=== PATIENT | female | born 1960 | race Caucasian/White ===

== ENCOUNTER 2023-11-14 11:02 | Emergency (ER) | payer OTHER, SELFPAY ==
[2023-11-14 11:13] VITALS: BP 120/69
[2023-11-14] MEDS: ATIVAN 2 MG PO (13:09)
--- NOTE | 2023-11-14 14:13 | ED.GENMED ---
History of Present Illness
General
Chief Complaint: Skin Problem
Source: patient and records
Exam Limitations: none
Time Seen by Provider: 11/14/23 11:52
Nursing documentation reviewed up to this point in time: agreed with
Travel History
Have you had any contact with someone who has COVID-19?: No
Do you have any symptoms of coronavirus? Fever > 100 degrees, chills, cough, shortness of breath, sore throat, loss of taste or smell, muscle aches, or headache?: No
History of Present Illness
History of Present Illness:
Patient is 63-year-old [id number] female presents to the emergency department with redness and swelling about her right wrist that started yesterday. Patient denies fever or chills. Patient had an arterial stick there for cardiac
catheterization on November 01. Patient had bypass surgery shortly thereafter and is recovering from that. Patient denies fever or chills. Patient denies any numbness, paresthesias or weakness of the right hand and fingers.
Past History
Past History
ED Past Medical History: CAD, HTN, Hypercholesterolemia and AL
ED Past Surgical History: Appendectomy and Orthopedic
Social History
Tobacco: Former smoker
Review of Systems
Review of Systems
All Other Systems: Not applicable
Phy Exam
Physical Exam
Physical Exam:
Physical Exam
General: No apparent distress, alert and appropriate, well nourished, well hydrated
HENT: Normocephalic, supple with no lymphadenopathy
Eyes: Clear sclera, conjuctiva without injection
Heart: Regular rhythm and rate. No S3, S4. No murmur.
Lungs: No respiratory distress, no stridor, lung sounds clear and equal bilaterally
Neuro: Alert and oriented x 3, CN II - XII intact, no motor focality, no cerebellar dysfunction
Skin: Approximately 4 mm diameter pustule over the right radial artery.
Psychiatric: well kept. interactive and cooperative but extremely anxious
Extremities: No edema, cyanosis.
Course
Orders/Labs/Results
Orders:
Orders
11/14/23 12:18
US Vascular Exam Limited Urgent
Reason For Exam: right wrist arterial puncture now elevated
11/14/23 13:05
Lorazepam [Ativan] 2 mg PO NOW STA
11/14/23 13:07
Lorazepam [Ativan] 2 mg .ROUTE .STK-MED ONE
11/14/23 13:09
Lorazepam [Ativan] 2 mg PO NOW STA
11/14/23 16:21
Oxycodone [Roxicodone] 5 mg .ROUTE .STK-MED ONE
11/14/23 16:24
Oxycodone [Roxicodone] 5 mg PO NOW STA
11/14/23 16:44
Wound Culture [Wound/Abscess/Other Culture] Urgent
RAFAL Source: Abscess
Specimen Description:
Date Specimen was Collected: 11/14/23
Time Specimen was Collected: 16:44
Comment: wrist
Vital Signs
Initial and Last Documented VS:
Initial Vital Signs
Temp Pulse Resp BP Pulse Ox
98.2 F 73 18 120/69 99
11/14/23 11:13 11/14/23 11:13 11/14/23 11:13 11/14/23 11:13 11/14/23 11:13
Last Documented Vital Signs
Temp Pulse Resp BP Pulse Ox
98.2 F 73 18 120/69 99
11/14/23 11:13 11/14/23 11:13 11/14/23 11:13 11/14/23 11:13 11/14/23 11:13
*Pulse Oximetry
Patient hypoxic: no
*EKG
Interpreted by ED Provider?: NA
*Interior Block Wirer Interpretation
Rate: Interior Block Wirer- N/A
*Critical Care Note
Total Time (30-74mins, 75-104mins- exclusive of procedures): Not Applicable
Update Note
Update Note:
Given the location of the pustule concerned about possibility of a pseudoaneurysm. Will get an ultrasound which was approved by vascular surgery.
No aneurysm. With the patient's hand palm up the area of the right radial artery was injected with 1% lidocaine with epi and bicarb in the pustule was unroofed revealing a small amount of purulent material and cultures taken. The area was
superficially debrided to the bottom of the wound. No foreign body. Band-Aid applied. Patient will be discharged
ED Attending Note
-
Portions of this chart may have been created with voice recognition software.� Occasional wrong word or��sound alike� substitutions may have occurred due to the inherent limitations of voice recognition software.
Discharge Plan
Departure
Patient Disposition: Home (Routine Discharge)
Date of Disposition: 11/14/23
Time of Disposition: 16:47
Patient with high blood pressure during this ER visit?: No
Condition: Good
Covid-19: Not Applicable
Discharge Problem:
Pustule
Instructions: Wound Care (DC)
Prescriptions:
New
mupirocin 2 % ointment
1 applic topical TID Qty: 50 0RF
No Action
trazodone 50 mg Tablet
25 mg PO HSPRN PRN (Reason: sleep)
methylphenidate HCl 54 mg tablet extended release 24hr
54 mg PO DAILYPRN PRN (Reason: focus)
methocarbamol 500 mg Tablet
500 mg PO TIDPRN PRN (Reason: NECK SPASMS)
therapeutic multivitamin Tablet
1 tab PO DAILY
gabapentin 300 mg Capsule
300 mg PO BID
cholecalciferol (vitamin D3) [Vitamin D3] 25 mcg (1,000 unit) Capsule
25 mcg PO DAILY
Entresto 24-26 mg Tablet
1 tab PO BID Qty: 60 1RF
pantoprazole 40 mg Tablet,Delayed Release (Dr/Ec)
40 mg PO DAILY Qty: 30 1RF
aspirin [Children's Aspirin] 81 mg Tablet,Chewable
81 mg PO DAILY Qty: 0 0RF
dapagliflozin propanediol [Farxiga] 10 mg Tablet
10 mg PO DAILY Qty: 30 1RF
clopidogrel 75 mg Tablet
75 mg PO DAILY Qty: 30 1RF
atorvastatin 40 mg Tablet
40 mg PO QPM Qty: 30 1RF
acetaminophen 325 mg Tablet
650 mg PO Q4HPRN PRN (Reason: mild pain,headache,temp >101F ) Qty: 0 0RF
metoprolol succinate 100 mg Tablet Extended Release 24 Hr
100 mg PO DAILY Qty: 30 1RF
oxycodone 5 mg Tablet
5 mg PO Q4HPRN PRN (Reason: severe pain) Qty: 20 0RF
Referrals:
Ivette Mandujano MD [Family Provider] - As needed
Activity Restrictions/Additional Instructions:
Continue present medications as prescribed. Any increasing redness, fevers please return to the emergency department.
Interventions
Interventions:
*General Assessment Last Done: 11/14/23 11:13
*ED COVID-19 Vaccine History Last Done: 11/14/23 11:13
[2023-11-14] MEDS: ROXICODONE 5 MG PO (16:25)
== END 2023-11-14 17:00 | disposition home or self-care (01) ==
LOC: EMR 11:02
PROVIDERS: EMERGENCY PHYSICIAN Emergency Medicine; FAMILY PHYSICIAN Family Medicine
DX: L08.9 Local infection of the skin and subcutaneous tissue, unspecified (principal); I77.89 Other specified disorders of arteries and arterioles; I10 Essential (primary) hypertension
CPT/HCPCS: 99284; 10060; 87070; 87205; 93926

== ENCOUNTER 2023-11-15 16:46 | Emergency (ER) | payer OTHER, SELFPAY ==
[2023-11-15 16:52] VITALS: BP 126/76
[2023-11-15 16:55] VITALS: BMI 31.5
[2023-11-15 17:00] VITALS: BP 104/50
--- NOTE | 2023-11-15 17:19 | ED.GENMED ---
History of Present Illness
General
Chief Complaint: Cardiac Symptoms
Source: patient and records
Exam Limitations: none
Time Seen by Provider: 11/15/23 17:07
Nursing documentation reviewed up to this point in time: agreed with
Travel History
Have you had any contact with someone who has COVID-19?: No
Do you have any symptoms of coronavirus? Fever > 100 degrees, chills, cough, shortness of breath, sore throat, loss of taste or smell, muscle aches, or headache?: No
History of Present Illness
History of Present Illness:
Patient is a 63-year-old female who had cardiac bypass surgery on November 05 and presents today for palpitations where her heart rate was going between 120 and 150 for approximately 25 to 30 minutes. Patient denied feeling lightheaded. Patient did
develop neck pain similar to when she had her heart attack previously. Patient not feel short of breath or have chest pain. Patient denies any diaphoresis. Patient denies any GI or symptoms. Patient denies any leg pain or swelling. Patient
was seen here yesterday for pustule over her right radial artery and had a negative arterial ultrasound for aneurysm. Patient denies any recent fever or chills.
Past History
Past History
ED Past Medical History: CAD, HTN, Hypercholesterolemia, [place] and Other (ADHD, osteoporosis, ischemic cardiomyopathy)
ED Past Surgical History: Appendectomy and Orthopedic
Social History
Tobacco: Former smoker
Review of Systems
Review of Systems
All Other Systems: ROS reviewed and negative except as documented in HPI and ROS
Constitutional: Reports no symptoms
EENT: Reports no symptoms
Respiratory: Reports no symptoms
Cardiac: Reports palpitations; Denies chest pain, diaphoresis or syncope
ABD/GI: Reports no symptoms
: Reports no symptoms
Musculoskeletal: Reports neck pain
Skin: Reports no symptoms
Neurological: Reports no symptoms
Hematologic/Lymphatic: Reports no symptoms
Phy Exam
Physical Exam
Physical Exam:
Physical Exam
General: No apparent distress, alert and appropriate, well nourished, well hydrated
HENT: Normocephalic, supple with no lymphadenopathy, no thyromegaly
Eyes: Clear sclera, conjuctiva without injection
Heart: Regular rhythm and rate. No S3, S4. No murmur. No NVD
Lungs: No respiratory distress, no stridor, lung sounds clear and equal bilaterally, chest wall nontender with well-healing sternal surgical wound
Abdomen: Soft, nontender, ness, BS good
Neuro: Alert and oriented x 3, CN II - XII intact, no motor focality, no cerebellar dysfunction
Skin: no rash
Psychiatric: well kept. interactive and cooperative
Extremities: No edema, cyanosis, tenderness.
Scores
Heart Failure Risk
Heart Failure Risk Score: Not Applicable
Heart Score for Chest Pain Patients
STEMI patient?: Not applicable
Withdrawal Assessment of Alcohol
Withdrawal Assessment Completed?: Not applicable
Course
Orders/Labs/Results
Orders:
Orders
11/15/23 17:19
Electrocardiogram (*1) Urgent
Reason for Study: Palpitations
EKG- Treatment ONCE
Complete Blood Count/With Diff Urgent
Comprehensive Metabolic Panel Urgent
Sed Rate [Erythrocyte Sed Rate] Urgent
TSH Reflex To Free T4 Urgent
Troponin I Urgent
11/15/23 17:24
PTT Urgent
Prothrombin Time Urgent
Abnormal Lab Results
11/15/23 11/15/23
17:19 17:24
RBC 2.92 L 10^6/uL
(4.20-5.40)
Hgb 9.9 L g/dL
(12.0-16.0)
Hct 28.2 L %
(37.0-47.0)
MCH 33.9 H pg
(27.0-31.0)
Plt Count 656 H D 10^3/uL
(130-400)
Abs Immat Gran (auto) 0.1 H 10^3/uL
(0-0.05)
Absolute Monos (auto) 1.0 H 10^3/uL
(0.1-0.6)
Monocytes % 9.9 H %
(1.7-9.3)
ESR 63 H mm/hour
(0-20)
PT 14.7 H Sec
(11.4-14.6)
APTT 37.2 H Sec
(23.4-35.0)
Sodium 134 L mmol/L
(135-145)
Glucose 108 H mg/dl
(70-99)
Total Protein 6.1 L g/dl
(6.3-8.2)
11/15/23 17:24
11/15/23 17:24
Vital Signs
Initial and Last Documented VS:
Initial Vital Signs
Temp Pulse Resp BP Pulse Ox
98.0 F 82 22 126/76 95
11/15/23 16:52 11/15/23 16:52 11/15/23 16:52 11/15/23 16:52 11/15/23 16:52
Last Documented Vital Signs
Temp Pulse Resp BP Pulse Ox
98.0 F 75 19 90/60 93
11/15/23 16:52 11/15/23 18:00 11/15/23 18:00 11/15/23 18:00 11/15/23 18:00
*Radiology
Radiology exam reviewed: other (na)
*Pulse Oximetry
Patient hypoxic: no
*Electrical Troubleshooter Interpretation
Rate: normal
Interpretation: normal
Heart Rate: 80
Rhythm: sinus
*Critical Care Note
Total Time (30-74mins, 75-104mins- exclusive of procedures): Not Applicable
Update Note
Update Note:
Spoke with cardiology and will follow-up as an outpatient. Probably atrial fibrillation but at this point no medication adjustment needs to be made. Patient does not require anticoagulation. Discussed the findings with the patient and her
daughter. Patient feels fine at this time. I discussed EKG and lab results with cardiology.
ED Attending Note
-
Portions of this chart may have been created with voice recognition software.� Occasional wrong word or��sound alike� substitutions may have occurred due to the inherent limitations of voice recognition software.
Discharge Plan
Departure
Patient Disposition: Home (Routine Discharge)
Date of Disposition: 11/15/23
Time of Disposition: 19:02
Patient with high blood pressure during this ER visit?: No
Condition: Good
Covid-19: Not Applicable
Discharge Problem:
Palpitations
Instructions: Palpitations (DC)
Prescriptions:
No Action
trazodone 50 mg Tablet
25 mg PO HSPRN PRN (Reason: sleep)
methylphenidate HCl 54 mg tablet extended release 24hr
54 mg PO DAILYPRN PRN (Reason: focus)
methocarbamol 500 mg Tablet
500 mg PO TIDPRN PRN (Reason: NECK SPASMS)
therapeutic multivitamin Tablet
1 tab PO DAILY
gabapentin 300 mg Capsule
300 mg PO BID
cholecalciferol (vitamin D3) [Vitamin D3] 25 mcg (1,000 unit) Capsule
25 mcg PO DAILY
Entresto 24-26 mg Tablet
1 tab PO BID Qty: 60 1RF
pantoprazole 40 mg Tablet,Delayed Release (Dr/Ec)
40 mg PO DAILY Qty: 30 1RF
aspirin [Children's Aspirin] 81 mg Tablet,Chewable
81 mg PO DAILY Qty: 0 0RF
dapagliflozin propanediol [Farxiga] 10 mg Tablet
10 mg PO DAILY Qty: 30 1RF
clopidogrel 75 mg Tablet
75 mg PO DAILY Qty: 30 1RF
atorvastatin 40 mg Tablet
40 mg PO QPM Qty: 30 1RF
acetaminophen 325 mg Tablet
650 mg PO Q4HPRN PRN (Reason: mild pain,headache,temp >101F ) Qty: 0 0RF
metoprolol succinate 100 mg Tablet Extended Release 24 Hr
100 mg PO DAILY Qty: 30 1RF
oxycodone 5 mg Tablet
5 mg PO Q4HPRN PRN (Reason: severe pain) Qty: 20 0RF
mupirocin 2 % ointment
1 applic topical TID Qty: 50 0RF
Referrals:
Ivetet Mandujano MD [Family Provider] -
Activity Restrictions/Additional Instructions:
Call your census clerk tomorrow to arrange follow-up otherwise continue present medications and therapy. If the palpitations are sustained for over half hour to an hour with no resolution or if having symptoms then return immediately.
Interventions
Interventions:
*Risk Screen - Suicide Last Done: 11/15/23 16:55
*General Assessment Last Done: 11/15/23 16:55
*Neglect/Abuse Screening Last Done: 11/15/23 16:55
ED- Fall Risk Assessment Last Done: 11/15/23 17:01
*ED COVID-19 Vaccine History Last Done: 11/15/23 16:52
ED- Pulmonary Assessment Last Done: 11/15/23 16:59
ED- Cardiac Assessment Last Done: 11/15/23 16:58
[2023-11-15 17:39] LABS: % Basophils 0.9 % (0-2); % Eosinophils 4.3 % (0-6); % Immature Granulocytes 0.5 % (0-0.5); % Lymphocytes 29.8 % (20.5-51.1); % Monocytes 9.9 % (1.7-9.3); % Neutrophils 54.6 % (42.2-75.2); Absolute Basophils 0.1 10^3/uL (0-0.2); Absolute Eosinophils 0.4 10^3/uL (0-0.7); Absolute Immature Granulocytes 0.1 10^3/uL (0-0.05); Absolute Lymphocytes 3.1 10^3/uL (1.2-3.4); Absolute Neutrophils 5.7 10^3/uL (1.4-6.5); Hematocrit 28.2 % (37.0-47.0); Hemoglobin 9.9 g/dL (12.0-16.0); Mean Corp Hgb Conc. 35.1 g/dL (33.0-37.0); Mean Corpuscular Hgb 33.9 pg (27.0-31.0); Mean Corpuscular Volume 96.6 fL (81.0-99.0); Nucleated Red Blood Cells % 0 %; Red Blood Cell Count 2.92 10^6/uL (4.20-5.40); Red Cell Dist. Width 13.9 % (11.5-14.5); White Blood Cell Count 10.4 10^3/uL (4.8-10.8)
[2023-11-15 17:50] LABS: INR 1.13; PT 14.7 Sec (11.4-14.6)
[2023-11-15 17:51] LABS: APTT 37.2 Sec (23.4-35.0)
[2023-11-15 17:53] LABS: Erythrocyte Sed Rate 63 mm/hour (0-20)
[2023-11-15 18:00] VITALS: BP 90/60
[2023-11-15 18:01] LABS: ALT (SGPT) 15 U/L (0-35); AST (SGOT) 21 U/L (14-36); Albumin 3.6 g/dl (3.5-5.0); Alkaline Phosphatase 73 U/L (38-126); Blood Urea Nitrogen 17 mg/dl (7-17); Calcium 9.2 mg/dl (8.4-10.2); Carbon Dioxide 25 mmol/L (22-30); Chloride 105 mmol/L (98-107); Estimated Creatinine Clearance 71 ml/min; Glucose 108 mg/dl (70-99); Sodium 134 mmol/L (135-145); Total Bilirubin 0.3 mg/dl (0.2-1.3); Total Protein 6.1 g/dl (6.3-8.2); eGFR > 60.00
[2023-11-15 18:04] LABS: Platelet Count 656 10^3/uL (130-400)
[2023-11-15 18:05] LABS: Mean Platelet Volume 9.1 fL (7.4-10.4)
[2023-11-15 18:13] LABS: Troponin I 0.033 ng/ml
[2023-11-15 19:00] VITALS: BP 117/67
[2023-11-15 19:03] LABS: TSH Reflex To Free T4 1.75 uIU/ml (0.47-4.68)
== END 2023-11-15 19:28 | disposition home or self-care (01) ==
LOC: EMR 16:46
PROVIDERS: EMERGENCY PHYSICIAN Emergency Medicine; FAMILY PHYSICIAN Family Medicine
DX: R00.2 Palpitations (principal); I25.10 Atherosclerotic heart disease of native coronary artery without angina pectoris; I10 Essential (primary) hypertension; I25.2 Old myocardial infarction; F90.9 Attention-deficit hyperactivity disorder, unspecified type; E78.00 Pure hypercholesterolemia, unspecified; I25.5 Ischemic cardiomyopathy; M81.0 Age-related osteoporosis without current pathological fracture; Z87.891 Personal history of nicotine dependence; Z90.49 Acquired absence of other specified parts of digestive tract
CPT/HCPCS: 99283; 80053; 84443; 84484; 85025; 85610; 85652; 85730; 93005

== ENCOUNTER 2023-11-19 11:50 | Emergency (ER) | payer OTHER, SELFPAY ==
[2023-11-19 11:54] VITALS: BP 107/60
[2023-11-19 11:55] VITALS: BP 107/60
[2023-11-19 12:00] VITALS: BP 95/49
--- NOTE | 2023-11-19 12:07 | ED.GENMED ---
History of Present Illness
General
Chief Complaint: Cardiac Symptoms
Time Seen by Provider: 11/19/23 12:06
Travel History
Have you had any contact with someone who has COVID-19?: No
Do you have any symptoms of coronavirus? Fever > 100 degrees, chills, cough, shortness of breath, sore throat, loss of taste or smell, muscle aches, or headache?: No
History of Present Illness
History of Present Illness:
63-year-old female with history of coronary artery disease status post CABG x 4 (11/05/2023), hypertension, and hyperlipidemia emergency department for evaluation of sudden onset palpitations beginning earlier today. She called 911 and on arrival of
EMS was noted to be in a narrow complex tachycardia in the 160s. Rapid rhythm terminated without medical therapy while and route to the hospital. On arrival the patient feels well and denies any acute complaints. Typically denies any chest pain
or shortness of breath. Her post CABG course has been complicated by an abscess at an arterial line site in the right wrist as well as a bout of paroxysmal A-fib that she was seen in the emergency department for approximately 4 days ago. She is
not on any anticoagulants but does take Plavix
Past History
Past History
ED Past Medical History: CAD, HTN, Hypercholesterolemia, [place] and Other (ADHD, osteoporosis, ischemic cardiomyopathy)
ED Past Surgical History: Appendectomy and Orthopedic
Social History
Tobacco: Former smoker
Review of Systems
Review of Systems
Allergies reviewed?: Yes
All Other Systems: ROS reviewed and negative except as documented in HPI and ROS
Phy Exam
Physical Exam
Physical Exam:
GEN: Well appearing, NAD, WDWN
HEENT: Oral mucosa moist, no scleral icterus
Cardiac: Regular rate and rhythm, no murmurs
Chest: Well-approximated midline sternotomy incisional scar no evidence for dehiscence or erythema
Lung: No respiratory distress, no tachypnea
MSK: No gross deformity or injuries
Skin: Good color, no pallor or jaundice, no rashes
Neuro: AO x3, moves all extremities freely
Psych: Calm, cooperative
Course
Orders/Labs/Results
Orders:
Orders
11/19/23 11:54
Electrocardiogram (*1) Urgent
Reason for Study: Tachycardia
11/19/23 11:55
EKG- Treatment ONCE
11/19/23 12:03
CMP [Comprehensive Metabolic Panel] Urgent
Complete Blood Count/With Diff Urgent
Magnesium Urgent
Comment: MAG ADDED ON BY FLOOR 12:19PM 11-19-23
11/19/23 12:19
Add On- LAB Urgent
Tests Added?: magnesium
Chest [CR Chest - 2 Views ] Urgent
Comment:
Reason For Exam: heart rate
Abnormal Lab Results
11/19/23
12:03
RBC 3.45 L 10^6/uL
(4.20-5.40)
Hgb 11.1 L g/dL
(12.0-16.0)
Hct 34.4 L %
(37.0-47.0)
MCV 99.7 H fL
(81.0-99.0)
MCH 32.2 H pg
(27.0-31.0)
MCHC 32.3 L g/dL
(33.0-37.0)
Plt Count 706 H 10^3/uL
(130-400)
Absolute Neuts (auto) 7.0 H 10^3/uL
(1.4-6.5)
Absolute Monos (auto) 0.9 H 10^3/uL
(0.1-0.6)
Glucose 116 H mg/dl
(70-99)
11/19/23 12:03
11/19/23 12:03
Vital Signs
Initial and Last Documented VS:
Initial Vital Signs
BP
107/60
11/19/23 11:54
Last Documented Vital Signs
Temp Pulse Resp BP Pulse Ox
97.9 F 87 21 95/49 95
11/19/23 11:55 11/19/23 12:15 11/19/23 12:15 11/19/23 12:00 11/19/23 12:15
MDM/Problems Addressed
MDM/Problems Addressed:
Telemetry strips personally reviewed by me from prehospital tracings are suggestive of a rapid atrial flutter. Patient remained in normal sinus rhythm in the emergency department labs/chest x-ray are reassuring. I communicated this with her
cardiology team, the patient has a scheduled follow-up this afternoon and given that she is stable with no abnormalities in the ER we will discharge her to be able to follow-up with cardiology and discuss further management of her recurrent atrial
arrhythmias in the setting of recent CABG. Do not see any indication for anticoagulation at this juncture, particularly given the close cardio f/u
Comment
Comment:
EKG independently interpreted by me shows normal sinus rhythm with deep T wave inversions laterally that are comparable to prior EKG tracings. No new ST changes concerning for ischemia, QTc of 476
Chest x-ray independently interpreted by me shows trace left lower lobe pleural effusion and bibasilar atelectasis, no evidence for acute infiltrate
*Critical Care Note
Total Time (30-74mins, 75-104mins- exclusive of procedures): Not Applicable
ED Attending Note
-
Portions of this chart may have been created with voice recognition software.� Occasional wrong word or��sound alike� substitutions may have occurred due to the inherent limitations of voice recognition software.
Discharge Plan
Departure
Patient Disposition: Home (Routine Discharge)
Date of Disposition: 11/19/23
Time of Disposition: 13:23
Patient with high blood pressure during this ER visit?: No
Discharge Problem:
Paroxysmal atrial fibrillation
Instructions: Atrial Fibrillation (DC)
Prescriptions:
No Action
trazodone 50 mg Tablet
25 mg PO HSPRN PRN (Reason: sleep)
methylphenidate HCl 54 mg tablet extended release 24hr
54 mg PO DAILYPRN PRN (Reason: focus)
methocarbamol 500 mg Tablet
500 mg PO TIDPRN PRN (Reason: NECK SPASMS)
therapeutic multivitamin Tablet
1 tab PO DAILY
gabapentin 300 mg Capsule
300 mg PO BID
cholecalciferol (vitamin D3) [Vitamin D3] 25 mcg (1,000 unit) Capsule
25 mcg PO DAILY
Entresto 24-26 mg Tablet
1 tab PO BID Qty: 60 1RF
pantoprazole 40 mg Tablet,Delayed Release (Dr/Ec)
40 mg PO DAILY Qty: 30 1RF
aspirin [Children's Aspirin] 81 mg Tablet,Chewable
81 mg PO DAILY Qty: 0 0RF
dapagliflozin propanediol [Farxiga] 10 mg Tablet
10 mg PO DAILY Qty: 30 1RF
clopidogrel 75 mg Tablet
75 mg PO DAILY Qty: 30 1RF
atorvastatin 40 mg Tablet
40 mg PO QPM Qty: 30 1RF
acetaminophen 325 mg Tablet
650 mg PO Q4HPRN PRN (Reason: mild pain,headache,temp >101F ) Qty: 0 0RF
metoprolol succinate 100 mg Tablet Extended Release 24 Hr
100 mg PO DAILY Qty: 30 1RF
oxycodone 5 mg Tablet
5 mg PO Q4HPRN PRN (Reason: severe pain) Qty: 20 0RF
mupirocin 2 % ointment
1 applic topical TID Qty: 50 0RF
Activity Restrictions/Additional Instructions:
Go to your medical housekeeper for your routine appointment
Interventions
Interventions:
*Risk Screen - Suicide Last Done: 11/19/23 11:55
*General Assessment Last Done: 11/19/23 11:55
*Neglect/Abuse Screening Last Done: 11/19/23 11:55
ED- Fall Risk Assessment Last Done: 11/19/23 13:25
*ED COVID-19 Vaccine History Last Done: 11/19/23 11:55
*Nursing Disposition Last Done: 11/19/23 13:25
ED- Pulmonary Assessment Last Done: 11/19/23 11:55
ED- Cardiac Assessment Last Done: 11/19/23 11:55
Discharge Date and Time
Discharge Date/Time: 11/19/23 13:25
[2023-11-19 12:28] LABS: % Basophils 0.9 % (0-2); % Eosinophils 2.8 % (0-6); % Immature Granulocytes 0.3 % (0-0.5); % Lymphocytes 21.9 % (20.5-51.1); % Monocytes 8.5 % (1.7-9.3); % Neutrophils 65.6 % (42.2-75.2); Absolute Basophils 0.1 10^3/uL (0-0.2); Absolute Eosinophils 0.3 10^3/uL (0-0.7); Absolute Lymphocytes 2.3 10^3/uL (1.2-3.4); Absolute Monocytes 0.9 10^3/uL (0.1-0.6); Hematocrit 34.4 % (37.0-47.0); Hemoglobin 11.1 g/dL (12.0-16.0); Mean Corp Hgb Conc. 32.3 g/dL (33.0-37.0); Mean Corpuscular Hgb 32.2 pg (27.0-31.0); Mean Corpuscular Volume 99.7 fL (81.0-99.0); Nucleated Red Blood Cells % 0 %; Platelet Count 706 10^3/uL (130-400); Red Blood Cell Count 3.45 10^6/uL (4.20-5.40); Red Cell Dist. Width 13.8 % (11.5-14.5); White Blood Cell Count 10.7 10^3/uL (4.8-10.8)
[2023-11-19 12:45] LABS: ALT (SGPT) 14 U/L (0-35); AST (SGOT) 20 U/L (14-36); Alkaline Phosphatase 87 U/L (38-126); Blood Urea Nitrogen 9 mg/dl (7-17); Calcium 9.4 mg/dl (8.4-10.2); Carbon Dioxide 23 mmol/L (22-30); Chloride 106 mmol/L (98-107); Estimated Creatinine Clearance 80 ml/min; Glucose 116 mg/dl (70-99); Magnesium 2.3 mg/dl (1.6-2.3); Potassium 4.7 mmol/L (3.5-5.1); Sodium 137 mmol/L (135-145); Total Bilirubin 0.4 mg/dl (0.2-1.3); Total Protein 6.8 g/dl (6.3-8.2); eGFR > 60.00
== END 2023-11-19 13:25 | disposition home or self-care (01) ==
LOC: EMR 11:50
PROVIDERS: EMERGENCY PHYSICIAN Emergency Medicine; FAMILY PHYSICIAN Family Medicine
DX: I48.0 Paroxysmal atrial fibrillation (principal); I25.10 Atherosclerotic heart disease of native coronary artery without angina pectoris; I10 Essential (primary) hypertension; I25.2 Old myocardial infarction; F90.9 Attention-deficit hyperactivity disorder, unspecified type; I25.5 Ischemic cardiomyopathy; M81.0 Age-related osteoporosis without current pathological fracture; E78.00 Pure hypercholesterolemia, unspecified; Z87.891 Personal history of nicotine dependence; Z90.49 Acquired absence of other specified parts of digestive tract; Z95.1 Presence of aortocoronary bypass graft
CPT/HCPCS: 99283; 71046; 80053; 83735; 85025; 93005

== ENCOUNTER 2024-01-30 02:48 | Emergency (ER) | payer OTHER, SELFPAY ==
[2024-01-30 02:55] VITALS: BP 171/74
[2024-01-30 03:18] VITALS: BMI 28.1
[2024-01-30 03:47] LABS: % Basophils 0.7 % (0-2); % Eosinophils 3.9 % (0-6); % Immature Granulocytes 0.4 % (0-0.5); % Lymphocytes 28.7 % (20.5-51.1); % Monocytes 15.5 % (1.7-9.3); % Neutrophils 50.8 % (42.2-75.2); Absolute Basophils 0.1 10^3/uL (0-0.2); Absolute Eosinophils 0.3 10^3/uL (0-0.7); Absolute Lymphocytes 2.2 10^3/uL (1.2-3.4); Absolute Monocytes 1.2 10^3/uL (0.1-0.6); Absolute Neutrophils 3.9 10^3/uL (1.4-6.5); Hematocrit 32.6 % (37.0-47.0); Hemoglobin 10.8 g/dL (12.0-16.0); Mean Corp Hgb Conc. 33.1 g/dL (33.0-37.0); Mean Corpuscular Hgb 30.8 pg (27.0-31.0); Mean Corpuscular Volume 92.9 fL (81.0-99.0); Mean Platelet Volume 9.6 fL (7.4-10.4); Nucleated Red Blood Cells % 0 %; Platelet Count 342 10^3/uL (130-400); Red Blood Cell Count 3.51 10^6/uL (4.20-5.40); Red Cell Dist. Width 14.7 % (11.5-14.5); White Blood Cell Count 7.6 10^3/uL (4.8-10.8)
[2024-01-30 03:48] LABS: Urine Albumin Negative (Neg - Trace); Urine Bilirubin Negative (Negative); Urine Character Clear (Clear); Urine Color Yellow; Urine Glucose 3+ (Negative); Urine Ketone Negative (Negative); Urine Leukocyte Negative (Negative); Urine Nitrite Negative (Negative); Urine Occult Blood Negative (Negative); Urine Specific Gravity 1.015 (<1.030); Urine Urobilinogen Negative (Neg - 1+)
[2024-01-30 04:00] LABS: Blood Urea Nitrogen 16 mg/dl (7-17); Calcium 9.3 mg/dl (8.4-10.2); Carbon Dioxide 22 mmol/L (22-30); Chloride 109 mmol/L (98-107); Estimated Creatinine Clearance 88 ml/min; Glucose 90 mg/dl (70-99); Potassium 4.5 mmol/L (3.5-5.1); Sodium 136 mmol/L (135-145); eGFR > 60.00
--- NOTE | 2024-01-30 05:32 | ED.GENMED ---
History of Present Illness
General
Chief Complaint: Back Pain
Source: patient
Time Seen by Provider: 01/30/24 03:24
Travel History
Have you had any contact with someone who has COVID-19?: No
Do you have any symptoms of coronavirus? Fever > 100 degrees, chills, cough, shortness of breath, sore throat, loss of taste or smell, muscle aches, or headache?: No
History of Present Illness
History of Present Illness:
63-year-old female presents to the emergency room complaining of pain in her low back. Pain has been present for the past week. No fever or chills. Patient also concerned that she has gained 3 pounds over the past couple days. She has a cardiac
history including CABG. She denies any shortness of breath or dyspnea on exertion. Patient has had kidney stones in the past and thought she might be having a kidney stone.
Past History
Past History
ED Past Medical History: CAD, HTN, Hypercholesterolemia, [place] and Other (ADHD, osteoporosis, ischemic cardiomyopathy)
ED Past Surgical History: Appendectomy and Orthopedic
Social History
Tobacco: Former smoker
Phy Exam
Physical Exam
Physical Exam:
General: Awake, Alert, Oriented X3. No acute distress.
Vitals: unremarkable
Head: Atraumatic
Eyes: Pupils equal, EOMI
Throat: Airway intact, no exudates
Neck: Trachea midline
Lungs: Clear and equal b/l
Heart: Regular rate, no murmurs
Abd: Soft, Nontender, No pulsatile mass
Back: No CVA tenderness percussion
Neuro: Nonfocal
Skin: Warm, dry, no rash
Extremities: pulses equal b/l, no edema
Course
Orders/Labs/Results
Orders:
Orders
01/30/24 03:38
Basic Metabolic Panel Urgent
Complete Blood Count/With Diff Urgent
Urinalysis Reflex To Culture Urgent
Date Specimen was Collected: 01/30/24
Time Specimen was Collected: 03:37
01/30/24 04:11
CT Abd/pel Without Iv Or Oral Urgent
Comment:
Reason For Exam: left flank pain
01/30/24 05:33
Lidocaine [Lidocaine 4% Patch] 1 patch TOPICAL NOW STA
Prednisone [Deltasone] 50 mg PO NOW STA
Abnormal Lab Results
01/30/24
03:38
RBC 3.51 L 10^6/uL
(4.20-5.40)
Hgb 10.8 L g/dL
(12.0-16.0)
Hct 32.6 L %
(37.0-47.0)
RDW 14.7 H %
(11.5-14.5)
Absolute Monos (auto) 1.2 H 10^3/uL
(0.1-0.6)
Monocytes % 15.5 H %
(1.7-9.3)
Chloride 109 H mmol/L
(98-107)
Urine Glucose 3+ A
(Negative)
01/30/24 03:38
01/30/24 03:38
Vital Signs
Initial and Last Documented VS:
Initial Vital Signs
Temp Pulse Resp BP Pulse Ox
97.7 F 69 16 171/74 96
01/30/24 02:55 01/30/24 02:55 01/30/24 02:55 01/30/24 02:55 01/30/24 02:55
Last Documented Vital Signs
Temp Pulse Resp BP Pulse Ox
97.7 F 84 20 158/82 96
01/30/24 02:55 01/30/24 05:59 01/30/24 05:59 01/30/24 05:59 01/30/24 02:55
MDM/Problems Addressed
Differential Diagnosis Includes:
Will also strain, kidney stone, compression fracture
MDM/Problems Addressed:
Patient presents with back pain. No evidence of urinary tract infection. CT does not show evidence of a kidney stone. She does have a mild compression fracture which is of indeterminate age. No evidence of an unstable process ongoing. Patient
presentation seems most consistent with musculoskeletal back pain. Will treat the patient with a short course of steroids. Also provide a short prescription for oxycodone.
*Radiology
Radiology exam reviewed: preliminary read by ED provider
*Pulse Oximetry
Patient hypoxic: no
*Critical Care Note
Total Time (30-74mins, 75-104mins- exclusive of procedures): Not Applicable
ED Attending Note
-
Portions of this chart may have been created with voice recognition software.� Occasional wrong word or��sound alike� substitutions may have occurred due to the inherent limitations of voice recognition software.
Discharge Plan
Departure
Patient Disposition: Home (Routine Discharge)
Date of Disposition: 01/30/24
Time of Disposition: 05:32
Patient with high blood pressure during this ER visit?: Yes
Condition: Good
Discharge Problem:
Low back pain
Instructions: Low Back Pain (DC), BLOOD PRESSURE
Prescriptions:
New
prednisone 20 mg tablet
40 mg PO DAILY Qty: 8 0RF
oxycodone 5 mg tablet
5 mg PO Q6H PRN (Reason: Pain) Qty: 12 0RF
No Action
methocarbamol 500 mg Tablet
500 mg PO TIDPRN PRN (Reason: NECK SPASMS)
therapeutic multivitamin Tablet
1 tab PO DAILY
gabapentin 300 mg Capsule
300 mg PO DAILY PRN (Reason: Neurological Condition)
cholecalciferol (vitamin D3) [Vitamin D3] 25 mcg (1,000 unit) Capsule
1,000 unit PO DAILY
Entresto 24-26 mg Tablet
1 tab PO BID Qty: 60 1RF
pantoprazole 40 mg Tablet,Delayed Release (Dr/Ec)
40 mg PO DAILY Qty: 30 1RF
dapagliflozin propanediol [Farxiga] 10 mg Tablet
10 mg PO DAILY Qty: 30 1RF
clopidogrel 75 mg Tablet
75 mg PO DAILY Qty: 30 1RF
atorvastatin 40 mg Tablet
40 mg PO QPM Qty: 30 1RF
acetaminophen 325 mg Tablet
650 mg PO Q4HPRN PRN (Reason: mild pain,headache,temp >101F ) Qty: 0 0RF
metoprolol succinate 100 mg Tablet Extended Release 24 Hr
100 mg PO DAILY Qty: 30 1RF
spironolactone 25 mg Tablet
12.5 mg PO DAILY
Eliquis 5 mg Tablet
5 mg PO BID
lorazepam 1 mg Tablet
1 mg PO HS PRN (Reason: anxiety/sleep)
Referrals:
Jens Jc MD [Active] -
Ivette Mandujano MD [Family Provider] -
Activity Restrictions/Additional Instructions:
Please call to make an appointment with DR. Jc or one of his partners. You can use over the counter lidocaine patch for pain. I have also sent prescriptions for 4 days of prednisone and oxycodone for severe pain.
Interventions
Interventions:
*Risk Screen - Suicide Last Done: 01/30/24 02:55
*General Assessment Last Done: 01/30/24 02:55
*Neglect/Abuse Screening Last Done: 01/30/24 02:55
ED- Fall Risk Assessment Last Done: 01/30/24 03:19
*ED COVID-19 Vaccine History Last Done: 01/30/24 05:57
*Nursing Disposition Last Done: 01/30/24 05:59
ED-Musculoskeletal Assessment Last Done: 01/30/24 03:19
Discharge Date and Time
Discharge Date/Time: 01/30/24 06:00
Print Language: ARABIC
[2024-01-30] MEDS: DELTASONE 50 MG PO (05:50)
[2024-01-30] MEDS: LIDOCAINE 4% PATCH 1 PATCH TOPICAL (05:50)
[2024-01-30 05:59] VITALS: BP 158/82
== END 2024-01-30 06:00 | disposition home or self-care (01) ==
LOC: EMR 02:48
PROVIDERS: EMERGENCY PHYSICIAN Emergency Medicine; FAMILY PHYSICIAN Family Medicine
DX: M54.50 Low back pain, unspecified (principal); M48.50XA Collapsed vertebra, not elsewhere classified, site unspecified, initial encounter for fracture; I25.10 Atherosclerotic heart disease of native coronary artery without angina pectoris; I10 Essential (primary) hypertension; E78.00 Pure hypercholesterolemia, unspecified; M81.0 Age-related osteoporosis without current pathological fracture; Z95.1 Presence of aortocoronary bypass graft; I25.5 Ischemic cardiomyopathy; F90.9 Attention-deficit hyperactivity disorder, unspecified type; I25.2 Old myocardial infarction; Z87.442 Personal history of urinary calculi; Z87.891 Personal history of nicotine dependence; Z79.01 Long term (current) use of anticoagulants; Z88.0 Allergy status to penicillin; Z91.048 Other nonmedicinal substance allergy status
CPT/HCPCS: 99284; 74176; 80048; 81003; 85025

== ENCOUNTER → 2024-03-29 07:07 | Outpatient (REF) | payer OTHER, SELFPAY | LOC: HWRCS 07:07 | PROVIDERS: ATTENDING PHYSICIAN Nurse Practitioner; FAMILY PHYSICIAN Family Medicine | DX: I25.5 Ischemic cardiomyopathy (principal) | CPT/HCPCS: 93306 ==

== ENCOUNTER 2024-05-22 23:46 | Inpatient (IN) | payer OTHER, SELFPAY ==
[2024-05-22 19:29] VITALS: BP 181/82
[2024-05-22 19:31] VITALS: BMI 28.5
[2024-05-22 19:46] LABS: % Basophils 0.2 % (0-2); % Immature Granulocytes 0.5 % (0-0.5); % Lymphocytes 7.9 % (20.5-51.1); % Monocytes 2.4 % (1.7-9.3); Absolute Immature Granulocytes 0.1 10^3/uL (0-0.05); Absolute Lymphocytes 0.9 10^3/uL (1.2-3.4); Absolute Monocytes 0.3 10^3/uL (0.1-0.6); Absolute Neutrophils 10.4 10^3/uL (1.4-6.5); Hematocrit 39.7 % (37.0-47.0); Mean Corp Hgb Conc. 35.3 g/dL (33.0-37.0); Mean Corpuscular Hgb 31.7 pg (27.0-31.0); Mean Corpuscular Volume 89.8 fL (81.0-99.0); Nucleated Red Blood Cells % 0 %; Platelet Count 318 10^3/uL (130-400); Red Blood Cell Count 4.42 10^6/uL (4.20-5.40); Red Cell Dist. Width 15.4 % (11.5-14.5); White Blood Cell Count 11.7 10^3/uL (4.8-10.8)
--- NOTE | 2024-05-22 19:56 | ED.GENMED ---
History of Present Illness
General
Chief Complaint: Cold/Flu/URI Symptoms
Source: patient
Exam Limitations: none
Time Seen by Provider: 05/22/24 19:26
History of Present Illness
History of Present Illness:
This is a 63 year old female that comes in with c/o vomiting. Lloyd drake she has been vomiting since 4am. States that the student teacher has her weigh herself BID and today her morning weight was 153 and tonight she was down to 147. States that she has
pain in the epigastric area and upper abd and she is still having dry heaves at this point. States that she felt SOB, has a headache and slightly dizzy. States that she also had chills. Denies any fever, chest pain, diarrhea, urinary burning.
Past History
Past History
ED Past Medical History: CAD, CHF, HTN, Hypercholesterolemia, [place] and Other (ADHD, osteoporosis, ischemic cardiomyopathy)
ED Past Surgical History: Appendectomy, Cardiac (Quad Bypass, Ventricular septal defect, ), Orthopedic (Left shoulder replacement) and Other (cataracts, )
Social History
Tobacco: Former smoker
Alcohol: None
Personal: Single
Living: alone
Review of Systems
Review of Systems
All Other Systems: ROS reviewed and negative except as documented in HPI and ROS
Constitutional: Reports chills; Denies fever
EENT: Reports no symptoms
Respiratory: Reports trouble breathing; Denies cough
Cardiac: Reports no symptoms; Denies chest pain
ABD/GI: Reports abdominal pain, nausea and vomiting; Denies diarrhea
: Reports no symptoms; Denies dysuria, frequency or urgency
Musculoskeletal: Reports no symptoms
Skin: Reports no symptoms
Neurological: Reports dizzy (Slight) and headache
Psychiatric: Reports no symptoms
Phy Exam
General Physical Exam
General Presentation: mild distress
General age: appears stated age
General Skin: warm and dry
General Habitus: normal
General Mental: alert
General Hydration: dry mucous membranes
ENT Exam
ENT Exam: TM's normal, pharynx normal and neck supple
Eye Exam
Eye Exam: EOMI
Cardiovascular Exam
Cardiovascular Exam: regular rate/rhythm, no edema and normal peripheral pulses
Pulmonary Exam
Pulmonary Exam: lungs clear, no respiratory distress, no rales, chest non tender, no crackles, no rhonchi, no wheezing and no cough
Gastrointestinal Exam
Gastrointestinal Exam: normal bowel sounds, soft, no organomegaly, no pulsatile mass, non distended and tender (Epigastric and right upper abd pain)
Musculoskeletal Exam
Musculoskeletal Exam: full ROM and no edema
Skin Exam
Skin Exam: normal color, warm/dry, no rash and no petechia
Psychiatric Exam
Psychiatric Exam: normal mood/affect
Course
Orders/Labs/Results
Orders:
Orders
05/22/24 19:33
EKG [Electrocardiogram (*1)] Stat
Reason for Study: Fatigue / Weakness
EKG- Treatment ONCE
05/22/24 19:38
CBC/With Diff [Complete Blood Count/With Diff] Stat
CMP [Comprehensive Metabolic Panel] Stat
Lipase Stat
Comment: ADD ON
05/22/24 19:48
Pantoprazole [Protonix IV] 40 mg IV NOW STA
Sucralfate Suspension [Carafate Suspension] 1 gm PO NOW STA
US Abdomen Complete/Upper Urgent
Comment:
Reason For Exam: Epigastric and upper abd pain
05/22/24 19:49
Add On- LAB Urgent
Tests Added?: Lipase
05/22/24 19:57
Ondansetron Injectable [Zofran] 4 mg IV NOW STA
05/22/24 19:59
Troponin I Urgent
05/22/24 21:22
Ketorolac [Toradol] 30 mg IV NOW STA
05/22/24 21:30
Urinalysis Reflex To Culture Urgent
Date Specimen was Collected: 05/22/24
Time Specimen was Collected: 20:54
Urine Microscopic Reflex Cult Urgent
05/22/24 22:24
Troponin I Urgent
05/22/24 22:26
Acetaminophen [Tylenol] 1,000 mg .ROUTE .STK-MED ONE
05/22/24 22:27
Acetaminophen [Tylenol] 1,000 mg PO NOW STA
05/22/24 23:02
HYDROmorphone [Dilaudid] 1 mg IV NOW STA
05/22/24 23:03
Ondansetron Injectable [Zofran] 4 mg IV NOW STA
Abnormal Lab Results
05/22/24 05/22/24
19:38 21:30
WBC 11.7 H 10^3/uL
(4.8-10.8)
MCH 31.7 H pg
(27.0-31.0)
RDW 15.4 H %
(11.5-14.5)
Abs Immat Gran (auto) 0.1 H 10^3/uL
(0-0.05)
Absolute Neuts (auto) 10.4 H 10^3/uL
(1.4-6.5)
Absolute Lymphs (auto) 0.9 L 10^3/uL
(1.2-3.4)
Neutrophils % 89.0 H %
(42.2-75.2)
Lymphocytes % 7.9 L %
(20.5-51.1)
Carbon Dioxide 19 L mmol/L
(22-30)
Glucose 119 H mg/dl
(70-99)
Calcium 10.3 H mg/dl
(8.4-10.2)
Albumin 5.3 H g/dl
(3.5-5.0)
Urine Ketones 3+ A
(Negative)
Ur Occult Blood Reflex Trace A
(Negative)
Urine RBC 7-10 A /HPF
(0-2)
Urine Bacteria (Reflex) Few A
(Negative)
Urine Glucose 3+ A
(Negative)
05/22/24 19:38
05/22/24 19:38
WBC slightly elevated. Hyperglycemia. Carbon dioxide slightly low. Albumin low. Lipase normal at 48 First troponin 0.019,
Repeat Troponin 0.032,
Vital Signs
Initial and Last Documented VS:
Initial Vital Signs
Temp Pulse Resp BP Pulse Ox
98.6 F 75 15 181/82 100
05/22/24 19:29 05/22/24 19:29 05/22/24 19:29 05/22/24 19:29 05/22/24 19:29
Last Documented Vital Signs
Temp Pulse Resp BP Pulse Ox
98.6 F 76 20 161/86 99
05/22/24 19:29 05/22/24 22:45 05/22/24 22:45 05/22/24 22:20 05/22/24 22:45
MDM/Problems Addressed
Differential Diagnosis Includes:
Gastritis, Pancreatitis, Gallbladder disease
MDM/Problems Addressed:
This is a 63 year old female that comes in with c/o epigastric pain. States that she has been vomiting since 4am and that she has lost weight today. States that know she is just dry heaving.
Will get labs. Give IV fluids. Medicated for Gastritis. Will get US.
back into see patient. patient OOB and states that her pain is no better and she is requesting Ice chips. Will further medicate for pain. Explained that her US is negative for any acute process and her blood work shows that her Lipase is normal.
Will further medicate for pain and then recheck.
Into see patient. States that she still has this burning. Patient states that it is some better. Explained that this may be gastritis but will get second Troponin.
Repeat Troponin continues to trend up and patient continues with this upper abd pain. Will admit for further evaluation. Hospitalist notified.
Chronic conditions affecting care: CAD
Acute Exacerbation and/or Progression of Chronic Illness:
NA
*Radiology
Radiology exam reviewed: radiology read reviewed (US-The gallbladder is not well visualized. 2cm echogenic region within the gallbladder, which lee represent gallstones or possibly tumefecative sludge. Of note, there is multiple small calcified
gallstones within the gallbladder on CT scan of January 30, 2024. The gallbladder wall is), all reviewed NAD by ED Provider (US cont-is not well visualized. No grosss evidence for pericholechystic edema. the patient has a negative sonographic woodward's
sign. No evidence for intrahepatic bile duct dilation. Common bile duct is unable to be definitively identified. Pancreatic head and tail are unable to be adequately ) and other (US cont- adequately visualized. Pancreatic body is moderately
well-visualized with no focal abnormality. )
*Pulse Oximetry
Patient hypoxic: no
*EKG
Interpreted by ED Provider?: Yes
Heart Rate: 67
Rate: normal
Rhythm: sinus
[place]: left axis deviation
Interval: normal interval
QRS Pattern: normal QRS
Ischemia: non-specific ST changes (T wave abnormality- I aVL, V1, V2, V3, V4, V5, )
*Epic Anesthesia Analyst Interpretation
Rate: normal
Heart Rate: 66
Rhythm: sinus
*Critical Care Note
Total Time (30-74mins, 75-104mins- exclusive of procedures): Not Applicable
ED Attending Note
-
Portions of this chart may have been created with voice recognition software.� Occasional wrong word or��sound alike� substitutions may have occurred due to the inherent limitations of voice recognition software.
Discharge Plan
Departure
Patient Disposition: Admit
Date of Disposition: 05/22/24
Time of Disposition: 23:06
Admit to: Telemetry
Presentation/result/management discussed w/ accepting MD/DO: Hospitalist
Patient with high blood pressure during this ER visit?: Yes
Condition: Good
Covid-19: Not Applicable
Discharge Problem:
Acute upper abdominal pain
Prescriptions:
No Action
methocarbamol 500 mg Tablet
500 mg PO TIDPRN PRN (Reason: NECK SPASMS)
therapeutic multivitamin Tablet
1 tab PO DAILY
gabapentin 300 mg Capsule
300 mg PO DAILY PRN (Reason: Neurological Condition)
cholecalciferol (vitamin D3) [Vitamin D3] 25 mcg (1,000 unit) Capsule
1,000 unit PO DAILY
Entresto 24-26 mg Tablet
1 tab PO BID Qty: 60 1RF
pantoprazole 40 mg Tablet,Delayed Release (Dr/Ec)
40 mg PO DAILY Qty: 30 1RF
dapagliflozin propanediol [Farxiga] 10 mg Tablet
10 mg PO DAILY Qty: 30 1RF
clopidogrel 75 mg Tablet
75 mg PO DAILY Qty: 30 1RF
atorvastatin 40 mg Tablet
40 mg PO QPM Qty: 30 1RF
acetaminophen 325 mg Tablet
650 mg PO Q4HPRN PRN (Reason: mild pain,headache,temp >101F ) Qty: 0 0RF
metoprolol succinate 100 mg Tablet Extended Release 24 Hr
100 mg PO DAILY Qty: 30 1RF
spironolactone 25 mg Tablet
12.5 mg PO DAILY
Eliquis 5 mg Tablet
5 mg PO BID
lorazepam 1 mg Tablet
1 mg PO HS PRN (Reason: anxiety/sleep)
prednisone 20 mg tablet
40 mg PO DAILY Qty: 8 0RF
oxycodone 5 mg tablet
5 mg PO Q6H PRN (Reason: Pain) Qty: 12 0RF
Referrals:
UNKNOWN - PT NOT,INTERVIEWE [Family Provider] -
Interventions
Interventions:
*Risk Screen - Suicide Last Done: 05/22/24 19:35
*General Assessment Last Done: 05/22/24 19:32
*Neglect/Abuse Screening Last Done: 05/22/24 19:32
ED- Fall Risk Assessment Last Done: 05/22/24 19:35
*ED COVID-19 Vaccine History Last Done: 05/22/24 19:32
ED- Pulmonary Assessment Last Done: 05/22/24 19:35
Discharge Date and Time
Print Language: TURKISH
[2024-05-22 20:00] VITALS: BP 153/74
[2024-05-22 20:04] LABS: ALT (SGPT) 19 U/L (0-35); AST (SGOT) 26 U/L (14-36); Albumin 5.3 g/dl (3.5-5.0); Alkaline Phosphatase 82 U/L (38-126); Blood Urea Nitrogen 17 mg/dl (7-17); Calcium 10.3 mg/dl (8.4-10.2); Carbon Dioxide 19 mmol/L (22-30); Chloride 102 mmol/L (98-107); Estimated Creatinine Clearance 67 ml/min; Glucose 119 mg/dl (70-99); Lipase 46 U/L (23-300); Potassium 4.4 mmol/L (3.5-5.1); Sodium 136 mmol/L (135-145); Total Bilirubin 0.5 mg/dl (0.2-1.3); Total Protein 7.7 g/dl (6.3-8.2); eGFR > 60.00
[2024-05-22 20:29] LABS: Troponin I 0.019 ng/ml
[2024-05-22] MEDS: PROTONIX IV 40 MG IV (20:48)
[2024-05-22] MEDS: CARAFATE SUSPENSION 1 GM PO (20:48)
[2024-05-22] MEDS: ZOFRAN 4 MG IV ×2 (20:48→23:09)
[2024-05-22] MEDS: TORADOL 30 MG IV (21:31)
[2024-05-22 21:33] VITALS: BP 155/128
[2024-05-22 21:34] VITALS: BP 177/86
[2024-05-22 21:42] LABS: Urine Albumin Trace (Neg - Trace); Urine Bilirubin Negative (Negative); Urine Character Clear (Clear); Urine Color Yellow; Urine Glucose 3+ (Negative); Urine Ketone 3+ (Negative); Urine Leukocyte Negative (Negative); Urine Nitrite Negative (Negative); Urine Occult Blood Trace (Negative); Urine Urobilinogen Negative (Neg - 1+); Urine pH 6.5 (5.0-9.0)
[2024-05-22 21:54] LABS: Urine Bacteria Few (Negative); Urine Mucus Moderate; Urine Squamous Cell 16-20 /LPF (Few)
[2024-05-22 22:20] VITALS: BP 161/86
[2024-05-22] MEDS: TYLENOL 1000 MG PO (22:28)
[2024-05-22 22:53] LABS: Troponin I 0.032 ng/ml
[2024-05-22] MEDS: DILAUDID 1 MG IV (23:10)
--- NOTE | 2024-05-22 23:11 | HPS.HSE ---
Addendum entered and electronically signed by Tae Harrington DO 05/23/24 00:22:
Patient seen and examined independently. Agree with findings and plan as set forth by URIEL Fernandez.
Patient is a 63y F with PMH significant for ASCVD s/p CABG in October who presents to ED complaining of burning epigastric pain with N/V. Patient states that she woke around 4 AM with these symptoms. She describes a burning discomfort in the
epigastric area and the lower chest / sternum. She has had multiple episodes of emesis and has been unable to tolerate PO intake at home. Patient presented to the ED for further evaluation.
Work-up in the ED thus far shows gallstones but no clear evidence of cholecystitis. Symptoms somewhat improved after meds given here in the ED.
Ass:
Gastritis v Symptomatic Cholelithiasis v Other
Intractable N/V secondary to the above
ASCVD
Benign Hypertension
Paroxysmal A-Fib
Ischemic Cardiomyopathy with Recovered LVEF
Anxiety / Depression
Plan:
Admit for further evaluation and treatment.
Continue supportive measures with PPI, pain control, antiemetics, etc.
GI evaluations for additional recommendations.
Follow for any recurrent / worsening symptoms.
Troponin non-negative in the ED and trending upwards.
Continue to follow to peak and monitor for changes in symptoms.
Continue usual CV med regimen.
Original Note:
Family Physician
-
Family Physician: INTERVIEWE UNKNOWN - PT NOT
Chief Complaint
-
Epigastric pain, vomiting, nausea
History of Present Illness
63-year-old female complaining of headache last night then woke up at 4:00 this a.m. vomiting and complaining of epigastric pain with burning she feels that she has lost weight she weighed herself this morning at 153 pounds and reports now is 147
this evening. She is complaining of pain in the epigastric area and upper abdomen with dry heaves, headache, slight dizziness and reports some chills. She denies actual fever, chest pain, palpitations, shortness breath, cough, urinary symptoms,
diarrhea. She reports she is on Wegovy 0.75 mg has been on it for the past 3 months with no side effects her last dose was 4 days ago. She was unable to keep down any medications today. She reports chronic fatigue since her bypass
surgery in October. She is past medical history of CAD/MA/CABG-S/P CABG (OLVERA to LAD, SVG to OM1, SVG to OM2, SVG to dRCA) by Dr. Coe (11/05/2023)., VSD repair, ischemic cardiomyopathy, CHF, HTN, HLD, ADHD, osteoporosis, former smoker
Medical History
Past Medical History
Past Medical History: Reports Other
Additional Past Medical History:
CAD/MA/CABG X 4 VESSEL October 2023
Ejection fraction 25-30% October 2023
VSD repair
ischemic cardiomyopathy
CHF
HTN
HLD
ADHD
osteoporosis
former smoker
Past Surgical History: Reports Other
Additional Past Surgical History:
Appendectomy
CABG x 4 vessel-S/P CABG (OLVERA to LAD, SVG to OM1, SVG to OM2, SVG to dRCA) by Dr. Coe (11/05/2023).
VSD repair
Left shoulder replacement
Cataract extraction
Social History
Tobacco: Former Smoker
Alcohol: None
Personal: Single
Living: Alone
Employment: Retired
Family History
Family History: Not pertinent
Allergies / Home Medications
Allergies reflects when Allergies were last updated in [facility].
Home Medications with original date entered in [facility]
Allergy/Medication List:
Allergies
Allergy/AdvReac Type Severity Reaction Status Date / Time
mold Allergy Mild Swelling Verified 01/30/24 03:36
Penicillins Allergy Anaphylaxis Verified 01/30/24 03:36
Home Medications
cholecalciferol (vitamin D3) 25 mcg (1,000 unit) capsule (Vitamin D3) 1,000 unit PO DAILY Supplement 11/01/23
gabapentin 300 mg capsule 300 mg PO DAILY PRN Neurological Condition 11/01/23
methocarbamol 500 mg tablet 500 mg PO TIDPRN PRN NECK SPASMS 11/01/23
therapeutic multivitamin 1 tab PO DAILY Supplement 11/01/23
acetaminophen 325 mg tablet 650 mg (2 x 325 mg) PO Q4HPRN PRN mild pain,headache,temp >101F #0 tabs 11/09/23
clopidogrel 75 mg tablet 75 mg PO DAILY Heart disease/condition #30 tabs 11/09/23
dapagliflozin propanediol 10 mg tablet (Farxiga) 10 mg PO DAILY Heart Failure #30 tabs 11/09/23
metoprolol succinate 100 mg tablet,extended release 24 hr 100 mg PO DAILY Heart disease/condition #30 tabs 11/09/23
pantoprazole 40 mg tablet,delayed release 40 mg PO DAILY Gastrointestinal issue #30 tabs 11/09/23
sacubitril 24 mg-valsartan 26 mg tablet (Entresto) 1 tab PO BID Heart Failure #60 tabs 11/09/23
apixaban 5 mg tablet (Eliquis) 5 mg PO BID 01/30/24
lorazepam 1 mg tablet 1 mg PO HS PRN anxiety/sleep 01/30/24
spironolactone 25 mg tablet 12.5 mg PO DAILY 01/30/24
Repatha Syringe 140 mg SC Q2W 05/22/24
amiodarone 200 mg tablet 200 mg PO DAILY 05/22/24
ezetimibe 10 mg tablet (Zetia) 10 mg PO DAILY 05/22/24
rosuvastatin 40 mg tablet 40 mg PO DAILY 05/22/24
semaglutide (weight loss) 0.5 mg/0.5 mL subcutaneous pen injector (Wegovy) 0.75 mg SC QWEEK 05/22/24
Review of Systems
-
History Source: Patient
A 12 point ROS was completed and negative except as noted: Yes
Constitutional: Reports Fatigue (Chronic); Denies Fever or Chills
EENT: Denies Sore Throat or Runny Nose
Respiratory: Denies Cough or Trouble Breathing
Cardiac: Denies Chest Pain, Diaphoresis or Palpitations
Abdomen/GI: Reports Abdominal Pain (Epigastric), Nausea and Vomiting; Denies Diarrhea, Constipated, Bloody Stools or Black Stools
: Denies Dysuria, Frequency, Flank Pain, Incontinence, Difficulty Voiding or Urgency
Musculoskeletal: Denies Joint Pain or Edema
Skin: Denies Itching or Rash
Neurological: Denies Dizzy, Headache or Weakness
Endocrine: Reports No Symptoms
Hematologic/Lymphatic: Reports No Symptoms
Psych: Reports Calm
Physical Exam
Vital Signs
Vital Signs
Temp Pulse Resp BP Pulse Ox
98.6 F 76 20 161/86 99
05/22/24 19:29 05/22/24 22:45 05/22/24 22:45 05/22/24 22:20 05/22/24 22:45
Physical Exam
General: Pain; No Fever or Chills
HEENT: NormoCephalic, Anicteric, Moist mucous membranes, PERRLA, [place] Conjunctivae and No Ptosis
Respiratory: Clear; No Wheezes, Rales or Rhonchi
Cardiac: S1/S2 and Regular Rhythm; No Murmur, Rub, Gallop or Peripheral Edema
Breast: Deferred by me
GI: Soft, Non Distended, Normal Bowel Sounds, Tender (Epigastric) and No Hepatosplenomegaly
Genito-urinary: Deferred by me
Musculoskeletal: No Clubbing, No Cyanosis and No Edema
Skin: Warm and Dry; No Rash
Neuro: AO x 3, No Motor Deficits, Nonfocal/grossly intact, Cranial Nerves Intact and No Sensory Deficits; No Slurred Speech, Facial Droop or Tremors
Psych: Calm
Laboratory Results
-
05/22/24 19:38
05/22/24 19:38
Laboratory Results
Total Bilirubin 0.5 mg/dl (0.2-1.3) 05/22/24 19:38
AST 26 U/L (14-36) 05/22/24 19:38
ALT 19 U/L (0-35) 05/22/24 19:38
Alkaline Phosphatase 82 U/L (38-126) 05/22/24 19:38
Troponin I 0.032 ng/ml D 05/22/24 22:24
Lipase 46 U/L (23-300) 05/22/24 19:38
Data Reviewed
-
Ultrasound: Report Reviewed by me
Lab Data: Labs Reviewed by me
Impression/Plan
-
Impression/plan:
Admit to TELE
#Abdominal pain concern for Acute gastritis vs gastric ulcer
#Leukocytosis-likely reactive
WBC 11.7 HR 76 temp 98.6
- Troponin 0.19 secondary one 0.032 will repeat third troponin monitor for any chest pain
-N.p.o. except meds sips
-IV NSS
-IV Protonix
-IV Zofran
-Will give patient her 1 mg IV Ativan dose she typically takes at night
-IV pain control
-Consult GI
-Follow CBC, CMP
Ultrasound abdomen complete:
1. Gallbladder not well-visualized 2 cm echogenic lesion within the gallbladder could represent gallstones or sludge. Multiple small calcified gallstones within the gallbladder on CT January 30, 2024
2. Unable to visualize common bile duct
3. No evidence of intrahepatic bile duct dilation
4. Pancreatic head and tail are unable to be adequately visualized pancreatic body is moderately well-visualized with no focal abnormality
#HTN-benign
BP 161/86
-Continue metoprolol succinate 100 mg daily, Entresto
#Paroxysmal A-fib Dx October 2023
-Continue amiodarone 200 mg daily, Eliquis 5 mg twice daily
#CAD/MA/CABG X 4 VESSEL
(OLVERA to LAD, SVG to OM1, SVG to OM2, SVG to dRCA) by Dr. Coe (11/05/2023).
#VSD repair
-Follows with [facility] cardiology
-Continue Plavix 75 mg daily, metoprolol succinate 100 mg daily, statin
#Ischemic cardiomyopathy reduced EF 25-30%> 50 to 55% March 2024
#Chronic CHF
-Hold current spironolactone due to vomiting
-I/O, daily weights
-Continue Entresto, Farxiga
2D echo 03/29/2024 normal biventricular size and systolic function without regional wall motion abnormality
No significant valvular disease.
Compared to the prior on 11/02/2023, the systolic function has improved from 25% to 30% on the prior study to 50 to 55% on today's study.
#HLD
-Patient currently on Repatha took approximately 1 week ago, Zetia 10 mg daily
# ADHD hx
#osteoporosis hx
-Continue vitamin D3
#former smoker
#History of neck spasms
Takes methocarbamol 500 mg 3 times daily as needed
#Insomnia
Patient takes Ativan as needed at bedtime
#Obesity due to excess calorie consumption�BMI 28.5
Patient currently on Wegovy 0.75 mg x 3 months took approximately 4 days ago
DVT prophylaxis
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
Full code
[2024-05-23] VITALS: BP 159/81
[2024-05-23 00:05] LABS: COVID-19 Antigen Negative (Negative)
[2024-05-23] MEDS: ATIVAN 1 MG IV (00:53)
[2024-05-23] MEDS: NSS (PRESERVATIVE FREE) 0.5 ML IV (00:53)
[2024-05-23 00:54] VITALS: BP 128/72
[2024-05-23 01:12] LABS: Lactic Acid 0.8 mmol/L (0.7-2.0)
[2024-05-23 01:23] VITALS: BP 148/71; BMI 27.7
--- NOTE | 2024-05-23 01:30 | PTCARENOTE ---
Pt rec'd from ED awake, alert, & oriented. Able to ambulate from jackson to bed w/o dizziness or SOB. Pt expressed much anxiety over dog who has been unattended at her house for extended period of time. At first was talking about leaving @ 0300 in
order to take care of dog. Now she states she understands importance of staying at least to find out results of next blood draw. Currently states she has epigastric discomfort that she rates '4' and describes as 'much better than before'. Denies
nausea at this time.
[2024-05-23] MEDS: NSS 1000 IV (01:39)
[2024-05-23] MEDS: FLUSH (NSS) 1 FLUSH IV (01:48)
[2024-05-23 03:22] VITALS: BP 119/60
[2024-05-23] MEDS: ZOFRAN 4 MG IV (05:44)
[2024-05-23] MEDS: DILAUDID 0.5 MG IV (05:56)
[2024-05-23 06:00] VITALS: BMI 27.7
--- NOTE | 2024-05-23 06:32 | PTCARENOTE ---
Again c/o significant nausea & epigastric burning pain. Zofran and Dilaudid effective in reducing discomfort.
[2024-05-23 07:04] LABS: % Basophils 0.3 % (0-2); % Eosinophils 0.2 % (0-6); % Immature Granulocytes 0.3 % (0-0.5); % Lymphocytes 20.5 % (20.5-51.1); % Monocytes 11.4 % (1.7-9.3); % Neutrophils 67.3 % (42.2-75.2); Absolute Lymphocytes 2.5 10^3/uL (1.2-3.4); Absolute Monocytes 1.4 10^3/uL (0.1-0.6); Absolute Neutrophils 8.2 10^3/uL (1.4-6.5); Hematocrit 36.5 % (37.0-47.0); Hemoglobin 12.6 g/dL (12.0-16.0); Mean Corp Hgb Conc. 34.5 g/dL (33.0-37.0); Mean Corpuscular Hgb 31.8 pg (27.0-31.0); Mean Corpuscular Volume 92.2 fL (81.0-99.0); Mean Platelet Volume 10.3 fL (7.4-10.4); Nucleated Red Blood Cells % 0 %; Platelet Count 299 10^3/uL (130-400); Red Blood Cell Count 3.96 10^6/uL (4.20-5.40); Red Cell Dist. Width 15.4 % (11.5-14.5); White Blood Cell Count 12.2 10^3/uL (4.8-10.8)
[2024-05-23 07:30] LABS: Troponin I 0.042 ng/ml
[2024-05-23 07:31] VITALS: BP 124/60
[2024-05-23 07:36] LABS: ALT (SGPT) 14 U/L (0-35); AST (SGOT) 22 U/L (14-36); Albumin 4.3 g/dl (3.5-5.0); Alkaline Phosphatase 64 U/L (38-126); Blood Urea Nitrogen 19 mg/dl (7-17); Calcium 9.6 mg/dl (8.4-10.2); Carbon Dioxide 23 mmol/L (22-30); Chloride 104 mmol/L (98-107); Estimated Creatinine Clearance 59 ml/min; Glucose 96 mg/dl (70-99); Potassium 3.8 mmol/L (3.5-5.1); Sodium 136 mmol/L (135-145); Total Bilirubin 0.5 mg/dl (0.2-1.3); Total Protein 6.6 g/dl (6.3-8.2); eGFR > 60.00
[2024-05-23] MEDS: PROTONIX IV 40 MG IV (08:29)
[2024-05-23] MEDS: NSS (PRESERVATIVE FREE) 10 ML IV (08:29)
[2024-05-23] MEDS: FARXIGA 10 MG PO (08:30)
[2024-05-23] MEDS: PACERONE 200 MG PO (08:30)
[2024-05-23] MEDS: VITAMIN D3 (cholecalciferol) 25 MCG PO (08:30)
[2024-05-23] MEDS: CRESTOR 40 MG PO (08:30)
[2024-05-23] MEDS: TOPROL XL 100 MG PO (08:30)
[2024-05-23] MEDS: PLAVIX 75 MG PO (08:31)
[2024-05-23] MEDS: ELIQUIS 5 MG PO (08:31)
[2024-05-23] MEDS: ENTRESTO 24 MG/26 MG 1 TAB PO (08:31)
[2024-05-23] MEDS: ZETIA 10 MG PO (08:31)
--- NOTE | 2024-05-23 09:38 | CON.CAR ---
Addendum entered and electronically signed by Hattie Farncis DO 05/23/24 13:32:
Please disregard previous addendum, placed in incorrect consultation note.
Addendum entered and electronically signed by Hattie Francis DO 05/23/24 13:31:
I saw and evaluated the patient. I reviewed the resident�s note and agree with findings and plan as documented in the resident�s note.
Briefly, Saige Alva is a 63 y.o. female with history of recent CAD w/ NSTEMI s/p CABG admitted with acute onset burning epigastric discomfort and NBNB emesis as well as some chills but no fever, prompting her to come in for evaluation. Given
her cardiac history, she was concerned for a cardiac etiology of her symptoms. US showed cholelithiasis but otherwise unremarkable. Initial troponin elevated, EKG showed prolonged QT And possible anterior ischemic changes. She currently endorses
improvement in symptoms, wants to try advancing her diet. She is hoping to be discharged today, as she has matters at home she needs to address.
-okay for clears, advance as tolerated
-okay to discharge from a GI perspective if tolerates clears as her N/V as resolved, but will defer to primary team/cardiology for appropriateness for discharge
-GI will sign off, please call with questions
Addendum entered and electronically signed by Juliet Gonzalez MD 05/23/24 12:49:
I saw and examined the patient.
The FIRST AID TEACHER's note was reviewed and I agree with the note.
Comment: 63 y/o female with hypertension, dyslipidemia, ADHD, former smoker quit 10/2023, CAD with NSTEMI and CABG in 10/2023, resolved CM (previously EF 25-30%, now 50-55%), and PAF on amio and Eliquis who is here for evaluation of vomiting since
yesterday AM. With this, she had abdominal pain with the vomiting. She has been feeling great with exercise and has no cp. SHe is feeling resolved and wants to go home. She has some ns twave abnromalities and mild trop elevation. I updated her
echo and there is normal ef without any change. No further cardiac evaluation planned.
Ok to discharge
Original Note:
Consultation
Consultation Request
Date/Time Consultation Requested: 05/23/24808
Date/Time Consultation Performed: 05/23/24 0935
Requesting Provider: Dr. Nieves
Performing Provider: Carina TREVINO for Dr. Gonzalez
Reason for Consultation: abnormal troponin and EKG
Medical History
-
Chief Complaint: nausea/vomiting/epigastric pain
History of Present Illness:
63 y/o female with hypertension, dyslipidemia, ADHD, former smoker quit 10/2023, CAD with NSTEMI and CABG in 10/2023, resolved CM (previously EF 25-30%, now 50-55%), and PAF on amio and Eliquis who is here for evaluation of vomiting since yesterday
AM. With this, she had abdominal pain with the vomiting. No chest pain, and specifically no pain like her previous angina. She has received medicines and feels much better now. Hopes to go home. We are consulted since EKG with t wave abnormalities
and troponin is abnormal.
Past Medical History
Past Medical History: Arrhythmias, CAD, HTN, Hypercholesterolemia and Other (resolved CM)
Social History
Tobacco: Former Smoker
Living: Alone
Allergies / Home Medications
Allergy/AdvReac Type Severity Reaction Status Date / Time
mold Allergy Mild Swelling Verified 01/30/24 03:36
Penicillins Allergy Anaphylaxis Verified 01/30/24 03:36
�Medication �Instructions �Recorded �Confirmed �Type
cholecalciferol (vitamin D3) 25 1,000 unit PO DAILY Supplement 11/01/23 05/22/24 History
mcg (1,000 unit) capsule (Vitamin
D3)
gabapentin 300 mg capsule 300 mg PO DAILY PRN Neurological 11/01/23 05/22/24 History
Condition
methocarbamol 500 mg tablet 500 mg PO TIDPRN PRN NECK SPASMS 11/01/23 05/22/24 History
therapeutic multivitamin 1 tab PO DAILY Supplement 11/01/23 05/22/24 History
acetaminophen 325 mg tablet 650 mg (2 x 325 mg) PO Q4HPRN PRN 11/09/23 05/22/24 Rx
mild pain,headache,temp >101F #0
tabs
clopidogrel 75 mg tablet 75 mg PO DAILY Heart 11/09/23 05/22/24 Rx
disease/condition #30 tabs
dapagliflozin propanediol 10 mg 10 mg PO DAILY Heart Failure #30 11/09/23 05/22/24 Rx
tablet (Farxiga) tabs
metoprolol succinate 100 mg 100 mg PO DAILY Heart 11/09/23 05/22/24 Rx
tablet,extended release 24 hr disease/condition #30 tabs
pantoprazole 40 mg tablet,delayed 40 mg PO DAILY Gastrointestinal 11/09/23 05/22/24 Rx
release issue #30 tabs
sacubitril 24 mg-valsartan 26 mg 1 tab PO BID Heart Failure #60 tabs 11/09/23 05/22/24 Rx
tablet (Entresto)
apixaban 5 mg tablet (Eliquis) 5 mg PO BID Blood Clot 01/30/24 05/22/24 History
Prevention/Tx
lorazepam 1 mg tablet 1 mg PO HS PRN anxiety/sleep 01/30/24 05/22/24 History
spironolactone 25 mg tablet 12.5 mg PO DAILY Fluid 01/30/24 05/22/24 History
Retention/Swelling
Repatha Syringe 140 mg SC Q2W High Cholesterol 05/22/24 05/22/24 History
amiodarone 200 mg tablet 200 mg PO DAILY Arrhythmia 05/22/24 05/22/24 History
ezetimibe 10 mg tablet (Zetia) 10 mg PO DAILY High Cholesterol 05/22/24 05/22/24 History
rosuvastatin 40 mg tablet 40 mg PO DAILY High Cholesterol 05/22/24 05/22/24 History
semaglutide (weight loss) 0.5 0.75 mg SC QWEEK Weight loss 05/22/24 05/22/24 History
mg/0.5 mL subcutaneous pen
injector (Wegovy)
Review of Systems
-
History Source: Patient
All other systems: Negative unless noted
Abdomen/GI: Abdominal Pain, Nausea and Vomiting
Physical Exam
Vital Signs
Temp Pulse Resp BP Pulse Ox
97.9 F 68 18 124/60 94
05/23/24 07:31 05/23/24 08:30 05/23/24 07:31 05/23/24 08:30 05/23/24 07:31
Lab Results
05/23/24 06:46
05/23/24 06:46
Troponin I 0.042 ng/ml H* 05/23/24 06:46
Physical Exam
General: Well Developed, Well Nourished and No Apparent Distress
HEENT: Anicteric
Respiratory: Clear and Non Labored Respirations
Cardiac: Regular Rhythm
Skin: Warm and Dry
Neuro: AO x 3
Impression / Plan
-
Vomiting:
-resolved s/p medicines
-reports she had abdominal pain with this, but no CP
-GI c/s
Resolved NICM:
-updating echo
-continue metoprolol, Entresto, Aldactone, Farxiga
Abnormal EKG:
-patient with t wave inversions anterolaterally. To my review, similar to OP EKG's, though more pronounced t wave inversions overall.
-QTC okay on manual review
-check follow-up echo for WMA
Abnormal troponin:
-0.019, 0.032, 0.042
-trend to peak, but suspect acute non-ischemic myocardial injury in setting of acute GI illness
-echo
CAD s/p CABG:
-continue Eliquis/plavix, statin, BB
-checking echo as above
-denies any angina
PAF:
-stable in SR
-continue amiodarone and Eliquis
Data Reviewed
-
EKG: Tracing Personally Visualized and interpreted (05/22/24: NSR with ST and T abnormality anterolaterally. QTC to my manual review is 465 ms.)
Labs: Labs Reviewed by me
--- NOTE | 2024-05-23 11:00 | CON.GI ---
Documented by User: Araceli Staples MD, Resident 05/23/24 11:58
Medical History
Chief Complaint / HPI
Chief Complaint: Epigastric pain, nausea/ vomiting
History of Present Illness:
Patient is a 63 yo F with PMH of ASCVD s/p CABG who presented to the ED complaining of severe epigastric pain and 3-4 episodes of vomiting since one day ago. She was not able to tolerate PO at home. Patient denied any chest pain,
diarrhea/constipation or urinary burning. She did not notice any fever but had occasional chills. Abdominal US showed a 2 cm echogenic region within the gallbladder, which could represent gallstones or possibly tumefactive sludge. No gross evidence
for pericholecystic edema. The patient had a negative sonographic Llamas's sign. LFT and Lipase were normal on admission. Troponin was elevated in ED. Serial EKG suggests prolonged QT and possible anterior ischemic changes.
At the time of consultation, patient states she has not had any episodes of vomiting since coming to the hospital. Her epigastric pain improved after medications and states she is not currently experiencing pain. Occasionally has dry heaves. She is
currently on clear liquids. Her last bowel movement was 2 days ago. She is able to pass gas. Abdomen is soft and non-distended.
Past Medical History
Past Medical History: CAD, CHF, HTN, Hypercholesterolemia, VT and Other (ADHD, osteoporosis, ischemic cardiomyopathy)
Past Surgical History: Appendectomy, Cardiac (CABG, Ventricular septal defect repair), Orthopedic (Left shoulder replacement) and Other ( cataracts)
Social History
Tobacco: Former Smoker
Alcohol: None
Personal: Single
Living: Alone
Allergies / Home Medications
Allergy/AdvReac Type Severity Reaction Status Date / Time
mold Allergy Mild Swelling Verified 01/30/24 03:36
Penicillins Allergy Anaphylaxis Verified 01/30/24 03:36
�Medication �Instructions �Recorded
cholecalciferol (vitamin D3) 25 1,000 unit PO DAILY Supplement 11/01/23
mcg (1,000 unit) capsule (Vitamin
D3)
gabapentin 300 mg capsule 300 mg PO DAILY PRN Neurological 11/01/23
Condition
methocarbamol 500 mg tablet 500 mg PO TIDPRN PRN NECK SPASMS 11/01/23
therapeutic multivitamin 1 tab PO DAILY Supplement 11/01/23
acetaminophen 325 mg tablet 650 mg (2 x 325 mg) PO Q4HPRN PRN 11/09/23
mild pain,headache,temp >101F #0
tabs
clopidogrel 75 mg tablet 75 mg PO DAILY Heart 11/09/23
disease/condition #30 tabs
dapagliflozin propanediol 10 mg 10 mg PO DAILY Heart Failure #30 11/09/23
tablet (Farxiga) tabs
metoprolol succinate 100 mg 100 mg PO DAILY Heart 11/09/23
tablet,extended release 24 hr disease/condition #30 tabs
pantoprazole 40 mg tablet,delayed 40 mg PO DAILY Gastrointestinal 11/09/23
release issue #30 tabs
sacubitril 24 mg-valsartan 26 mg 1 tab PO BID Heart Failure #60 tabs 11/09/23
tablet (Entresto)
apixaban 5 mg tablet (Eliquis) 5 mg PO BID Blood Clot 01/30/24
Prevention/Tx
lorazepam 1 mg tablet 1 mg PO HS PRN anxiety/sleep 01/30/24
spironolactone 25 mg tablet 12.5 mg PO DAILY Fluid 01/30/24
Retention/Swelling
Repatha Syringe 140 mg SC Q2W High Cholesterol 05/22/24
amiodarone 200 mg tablet 200 mg PO DAILY Arrhythmia 05/22/24
ezetimibe 10 mg tablet (Zetia) 10 mg PO DAILY High Cholesterol 05/22/24
rosuvastatin 40 mg tablet 40 mg PO DAILY High Cholesterol 05/22/24
semaglutide (weight loss) 0.5 0.75 mg SC QWEEK Weight loss 05/22/24
mg/0.5 mL subcutaneous pen
injector (Wegovy)
Review of Systems
-
History Source: Patient
All other systems: A 12 pt ROS was Negative except as stated above in HPI
Abdomen/GI: Reports Nausea (Occasional dry heaves )
Vital Signs
Temp Pulse Resp BP Pulse Ox
97.9 F 68 18 124/60 94
05/23/24 07:31 05/23/24 08:30 05/23/24 07:31 05/23/24 08:30 05/23/24 07:31
Physical Exam
Exam
General: Well Developed and Comfortable
Respiratory: Clear
Cardiac: S1/S2 and Regular Rhythm
GI: Soft, Non Tender and Non Distended
Musculoskeletal: No Edema
Neuro: Awake, Alert, Oriented and AO x 3
Results
WBC 12.2 10^3/uL (4.8-10.8) H 05/23/24 06:46
Hgb 12.6 g/dL (12.0-16.0) 05/23/24 06:46
Hct 36.5 % (37.0-47.0) L 05/23/24 06:46
MCV 92.2 fL (81.0-99.0) 05/23/24 06:46
Plt Count 299 10^3/uL (130-400) 05/23/24 06:46
Absolute Neuts (auto) 8.2 10^3/uL (1.4-6.5) H 05/23/24 06:46
Sodium 136 mmol/L (135-145) 05/23/24 06:46
Potassium 3.8 mmol/L (3.5-5.1) 05/23/24 06:46
Chloride 104 mmol/L (98-107) 05/23/24 06:46
Carbon Dioxide 23 mmol/L (22-30) 05/23/24 06:46
BUN 19 mg/dl (7-17) H 05/23/24 06:46
Creatinine 0.9 mg/dL (0.6-1.0) 05/23/24 06:46
Calcium 9.6 mg/dl (8.4-10.2) 05/23/24 06:46
Total Bilirubin 0.5 mg/dl (0.2-1.3) 05/23/24 06:46
AST 22 U/L (14-36) 05/23/24 06:46
ALT 14 U/L (0-35) 05/23/24 06:46
Alkaline Phosphatase 64 U/L (38-126) 05/23/24 06:46
Lipase 46 U/L (23-300) 05/22/24 19:38
Diagnostic Image Results:
The gallbladder is not well visualized. 2 cm echogenic region within the gallbladder, which could represent gallstones or possibly tumefactive sludge. Of note, there are multiple small calcified gallstones within the gallbladder on CT scan of January
2023.
The gallbladder wall is not well-visualized. No gross evidence for pericholecystic edema. The patient has a negative sonographic Llamas's sign.
No evidence for intrahepatic bile duct dilation.
Common bile duct is unable to be definitively identified.
Pancreatic head and tail are unable to be adequately visualized. Pancreatic body is moderately well-visualized with no focal abnormality.
Assessment / Plan
-
Patient is a 63yo F s/p CABG (in October 2023) who presented with epigastric pain and nausea/vomiting.
- Hemodynamics are stable, no fever
- Elevated troponin, EKG suggests possible ischemic changes, cardiology consulted
- Symptoms and abd US are not concerning for acute cholecystitis/pancreatitis.
- Possible gastritis, continue with Protonix, anti-emetics as needed
- Continue IVF therapy
- Keep on clear liquids for now
-
-
Thank you for consultation and allowing me to participate in the patient's care. Please call the search engine optimization consultant GI physician during the after hours with any questions or concerns.

Documented by User: Hattie Francis DO 05/23/24 13:33
Consultation
-
Date/Time Consultation Requested: 05/23/24
Date/Time Consultation Performed: 05/23/24
Requesting Provider: Dr. Nieves
Performing Provider: Dr. Francis
Reason for Consultation: N/V
[2024-05-23 11:16] VITALS: BP 134/72
[2024-05-23 12:20] LABS: Troponin I 0.025 ng/ml
--- NOTE | 2024-05-23 12:49 | PTCARENOTE ---
pt left AMA. Dr Nieves aware. pt ambulated with staff. IV and monitor off the pt.
--- NOTE | 2024-05-23 13:41 | W.PN.UPDATE ---
Update Note
Progress Note Update
patient eloped prior to safe discharge. Was tolerating diet and Echo was normal, was cleared for dc by GI and cards but decided not to wait for routine discharge process. She signed AMA form but no discussion of risk/benefit was discussed with
patient. RN removed IV.
--- NOTE | 2024-05-23 14:52 | CM ---
Pt left AMA, no CM assessment completed prior.
[2024-05-23 20:55] LABS: Hepatitis C Antibody Negative (Negative)
== END 2024-05-23 14:33 | disposition left against medical advice (07) | DRG 392 ==
LOC: 4 EAST ACU 23:46
PROVIDERS: Clinical Nurse Specialist Family Health; ADMITTING PHYSICIAN Hospitalist; ATTENDING PHYSICIAN Internal Medicine; CONSULT PHYSICIAN Internal Medicine; CONSULT PHYSICIAN Internal Medicine Cardiovascular Disease; EMERGENCY PHYSICIAN Emergency Medicine
DX: K52.9 Noninfective gastroenteritis and colitis, unspecified (principal); I50.22 Chronic systolic (congestive) heart failure; I42.8 Other cardiomyopathies; I5A Non-ischemic myocardial injury (non-traumatic); I11.0 Hypertensive heart disease with heart failure; E66.09 Other obesity due to excess calories; F32.A Depression, unspecified; K80.20 Calculus of gallbladder without cholecystitis without obstruction; Z68.28 Body mass index [BMI] 28.0-28.9, adult; Z53.29 Procedure and treatment not carried out because of patient's decision for other reasons; D72.829 Elevated white blood cell count, unspecified; I48.0 Paroxysmal atrial fibrillation; I25.10 Atherosclerotic heart disease of native coronary artery without angina pectoris; I25.5 Ischemic cardiomyopathy; I25.2 Old myocardial infarction; Z95.1 Presence of aortocoronary bypass graft; E78.5 Hyperlipidemia, unspecified; M81.0 Age-related osteoporosis without current pathological fracture; G47.00 Insomnia, unspecified; F90.9 Attention-deficit hyperactivity disorder, unspecified type; F41.9 Anxiety disorder, unspecified; R10.13 Epigastric pain; R73.9 Hyperglycemia, unspecified; R53.1 Weakness; R53.82 Chronic fatigue, unspecified; R94.31 Abnormal electrocardiogram [ECG] [EKG]; Z79.01 Long term (current) use of anticoagulants; Z79.899 Other long term (current) drug therapy; Z87.891 Personal history of nicotine dependence; Z79.02 Long term (current) use of antithrombotics/antiplatelets; Z90.49 Acquired absence of other specified parts of digestive tract; Z87.74 Personal history of (corrected) congenital malformations of heart and circulatory system; Z96.612 Presence of left artificial shoulder joint; Z88.0 Allergy status to penicillin
CPT/HCPCS: 93308; 76700; 80053; 81003; 81015; 83605; 83690; 84484; 85025; 86803; 87811; 93005; 96374; 96375; 96376; 99285

== ENCOUNTER 2024-05-24 12:12 | Observation (INO) | payer OTHER, SELFPAY ==
[2024-05-24] VITALS (9 sets, daily range): BP systolic 125–163; BP diastolic 72–102; BMI 27.1
[2024-05-24 06:21] LABS: % Basophils 0.5 % (0-2); % Eosinophils 0.3 % (0-6); % Immature Granulocytes 0.3 % (0-0.5); % Monocytes 6.1 % (1.7-9.3); % Neutrophils 77.8 % (42.2-75.2); Absolute Basophils 0.1 10^3/uL (0-0.2); Absolute Lymphocytes 1.7 10^3/uL (1.2-3.4); Absolute Monocytes 0.7 10^3/uL (0.1-0.6); Hematocrit 41.4 % (37.0-47.0); Hemoglobin 14.2 g/dL (12.0-16.0); Mean Corp Hgb Conc. 34.3 g/dL (33.0-37.0); Mean Corpuscular Hgb 31.9 pg (27.0-31.0); Mean Platelet Volume 10.5 fL (7.4-10.4); Nucleated Red Blood Cells % 0 %; Platelet Count 354 10^3/uL (130-400); Red Blood Cell Count 4.45 10^6/uL (4.20-5.40); Red Cell Dist. Width 15.4 % (11.5-14.5); White Blood Cell Count 11.6 10^3/uL (4.8-10.8)
[2024-05-24 06:29] LABS: ALT (SGPT) 18 U/L (0-35); AST (SGOT) 32 U/L (14-36); Albumin 4.9 g/dl (3.5-5.0); Alkaline Phosphatase 81 U/L (38-126); Blood Urea Nitrogen 16 mg/dl (7-17); Calcium 10.1 mg/dl (8.4-10.2); Carbon Dioxide 22 mmol/L (22-30); Chloride 103 mmol/L (98-107); Glucose 92 mg/dl (70-99); Lipase 72 U/L (23-300); Potassium 4.2 mmol/L (3.5-5.1); Sodium 137 mmol/L (135-145); Total Bilirubin 0.8 mg/dl (0.2-1.3); Total Protein 7.4 g/dl (6.3-8.2); eGFR > 60.00
--- NOTE | 2024-05-24 06:33 | ED.GENMED ---
History of Present Illness
<Sanam Sarkar MD, Resident - Last Filed: 05/24/24 10:27>
General
Chief Complaint: Abdominal Symptoms
Time Seen by Provider: 05/24/24 06:00
History of Present Illness
History of Present Illness:
63-year-old female, Saige Alva presented to the ER complaining of epigastric abdominal pain, acute in onset that started in the morning today after she woke up. 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
started approximately half an hour later. Patient reports the pain is very severe 10/ 10, nonradiating, burning in quality associated with nausea and severe retching. She did not have vomiting. No history of fevers, hematemesis, diarrhea,
melena/hematochezia, chronic use of NSAIDs, recent alcohol intake. No positional variation of the pain. Patient states that she took her weekly dose of Wegovy on , 05/19/2024, she was started on Wegovy 6 months ago for weight loss. Patient
also reports using marijuana. Patient was recently admitted 2 days ago for similar complaint, elevated trops�nonischemic(evaluated by cardiology), GI consulted and was managed symptomatically. Her ultrasound abdomen showed evidence of
cholelithiasis.
If applicable-neuro sx onset
Onset of symptoms known: Yes
Date of onset of symptoms: 05/24/24
Time pt last seen normal is known: Yes
Date last time pt seen normal: 05/23/24
Past History
<Sanam Sarkar MD, Resident - Last Filed: 05/24/24 10:27>
Past History
ED Past Medical History: CAD, CHF, HTN, Hypercholesterolemia, [place] and Other (ADHD, osteoporosis, ischemic cardiomyopathy)
ED Past Surgical History: Appendectomy, Cardiac (Quad Bypass, Ventricular septal defect, ), Orthopedic (Left shoulder replacement) and Other (cataracts, )
Patient has exhibited threatening behavior?: No
Social History
Tobacco: Former smoker
Alcohol: None
Drug: Marijuana
Personal: Single
Living: alone
Review of Systems
<Sanam Sarkar MD, Resident - Last Filed: 05/24/24 10:27>
Review of Systems
All Other Systems: ROS reviewed and negative except as documented in HPI and ROS
Phy Exam
<Sanam Sarkar MD, Resident - Last Filed: 05/24/24 10:27>
Physical Exam
Physical Exam:
GEN: Patient is in acute distress due to pain.
Eyes: PERRLA, EOMs intact, no scleral icterus
HENT: NCAT, oral mucosa moist, no JVD, no cervical adenopathy.
Lungs: CTAB, no wheezes, rales, rhonchi, normal chest wall excursion
Cardiac: RRR, no M/R/G, no peripheral edema. Radial pulses 2+ bilat
Abdomen: Soft, nondistended, epigastric tenderness, no guarding/rigidity, no masses
Neuro: AO x 3, no focal deficits to BUE/BLE, normal sensation throughout
Skin: No rashes, petechiae. Normal color, no pallor or jaundice.
Course
<Sanam Sarkar MD, Resident - Last Filed: 05/24/24 10:27>
Orders/Labs/Results
Orders:
Orders
05/24/24 06:01
IV Insert/Care/Rem.- Treatment PRN
05/24/24 06:06
Complete Blood Count/With Diff Urgent
Comprehensive Metabolic Panel Urgent
Lipase Urgent
05/24/24 06:11
Electrocardiogram (*1) Urgent
Reason for Study: Abdominal Pain
EKG- Treatment ONCE
05/24/24 06:38
CT Abd/pelvis W Iv Cont Urgent
Comment:
Reason For Exam: worsening upper abd pain
05/24/24 06:39
Mag Hydrox/Al Hydrox/Simeth [Maalox] 30 ml Phenobarb/Hyoscy/Atropine/Scop [] 10 ml Viscous Lidocaine 2% [Xylocaine Viscous Cup] 10 ml PO NOW
Ondansetron Injectable [Zofran] 4 mg IV NOW STA
Pantoprazole [Protonix IV] 40 mg IV NOW STA
05/24/24 07:07
Phenobarb/Hyoscy/Atropine/Scop [] 10 ml .ROUTE .STK-MED ONE
05/24/24 07:08
Mag Hydrox/Al Hydrox/Simeth [Maalox] 30 ml .ROUTE .STK-MED ONE
Viscous Lidocaine 2% [Xylocaine Viscous Cup] 15 ml .ROUTE .STK-MED ONE
05/24/24 07:24
HYDROmorphone [Dilaudid] 0.5 mg IV NOW STA
05/24/24 08:32
Ondansetron Injectable [Zofran] 4 mg IV NOW STA
05/24/24 09:58
HYDROmorphone [Dilaudid] 0.5 mg IV NOW STA
05/24/24 10:12
0.9% Sodium Chloride 500 ml [Nss] 500 ml IV BOLUS
05/24/24 10:15
0.9% Sodium Chloride 1000 ml [Nss] 1,000 ml IV 125 mls/hr
Abnormal Lab Results
05/24/24
06:06
WBC 11.6 H 10^3/uL
(4.8-10.8)
MCH 31.9 H pg
(27.0-31.0)
RDW 15.4 H %
(11.5-14.5)
MPV 10.5 H fL
(7.4-10.4)
Absolute Neuts (auto) 9.0 H 10^3/uL
(1.4-6.5)
Absolute Monos (auto) 0.7 H 10^3/uL
(0.1-0.6)
Neutrophils % 77.8 H %
(42.2-75.2)
Lymphocytes % 15.0 L %
(20.5-51.1)
05/24/24 06:08
05/24/24 06:08
Vital Signs
Initial and Last Documented VS:
Initial Vital Signs
Temp Pulse Resp BP Pulse Ox
97.9 F 73 20 158/102 99
05/24/24 05:56 05/24/24 05:56 05/24/24 05:56 05/24/24 05:56 05/24/24 05:56
Last Documented Vital Signs
Temp Pulse Resp BP Pulse Ox
97.9 F 73 18 147/86 100
05/24/24 05:56 05/24/24 06:45 05/24/24 06:45 05/24/24 06:11 05/24/24 06:45
<Bert Kimball MD - Last Filed: 05/24/24 10:14>
Orders/Labs/Results
Orders:
Orders
05/24/24 06:01
IV Insert/Care/Rem.- Treatment PRN
05/24/24 06:06
Complete Blood Count/With Diff Urgent
Comprehensive Metabolic Panel Urgent
Lipase Urgent
05/24/24 06:11
Electrocardiogram (*1) Urgent
Reason for Study: Abdominal Pain
EKG- Treatment ONCE
05/24/24 06:38
CT Abd/pelvis W Iv Cont Urgent
Comment:
Reason For Exam: worsening upper abd pain
05/24/24 06:39
Mag Hydrox/Al Hydrox/Simeth [Maalox] 30 ml Phenobarb/Hyoscy/Atropine/Scop [] 10 ml Viscous Lidocaine 2% [Xylocaine Viscous Cup] 10 ml PO NOW
Ondansetron Injectable [Zofran] 4 mg IV NOW STA
Pantoprazole [Protonix IV] 40 mg IV NOW STA
05/24/24 07:07
Phenobarb/Hyoscy/Atropine/Scop [] 10 ml .ROUTE .STK-MED ONE
05/24/24 07:08
Mag Hydrox/Al Hydrox/Simeth [Maalox] 30 ml .ROUTE .STK-MED ONE
Viscous Lidocaine 2% [Xylocaine Viscous Cup] 15 ml .ROUTE .STK-MED ONE
05/24/24 07:24
HYDROmorphone [Dilaudid] 0.5 mg IV NOW STA
05/24/24 08:32
Ondansetron Injectable [Zofran] 4 mg IV NOW STA
05/24/24 09:58
HYDROmorphone [Dilaudid] 0.5 mg IV NOW STA
05/24/24 10:12
0.9% Sodium Chloride 500 ml [Nss] 500 ml IV BOLUS
05/24/24 10:15
0.9% Sodium Chloride 1000 ml [Nss] 1,000 ml IV 125 mls/hr
Abnormal Lab Results
05/24/24
06:06
WBC 11.6 H 10^3/uL
(4.8-10.8)
MCH 31.9 H pg
(27.0-31.0)
RDW 15.4 H %
(11.5-14.5)
MPV 10.5 H fL
(7.4-10.4)
Absolute Neuts (auto) 9.0 H 10^3/uL
(1.4-6.5)
Absolute Monos (auto) 0.7 H 10^3/uL
(0.1-0.6)
Neutrophils % 77.8 H %
(42.2-75.2)
Lymphocytes % 15.0 L %
(20.5-51.1)
05/24/24 06:08
05/24/24 06:08
Vital Signs
Initial and Last Documented VS:
Initial Vital Signs
Temp Pulse Resp BP Pulse Ox
97.9 F 73 20 158/102 99
05/24/24 05:56 05/24/24 05:56 05/24/24 05:56 05/24/24 05:56 05/24/24 05:56
Last Documented Vital Signs
Temp Pulse Resp BP Pulse Ox
97.9 F 73 18 147/86 100
05/24/24 05:56 05/24/24 06:45 05/24/24 06:45 05/24/24 06:11 05/24/24 06:45
<Sanam Sarkar MD, Resident - Last Filed: 05/24/24 10:27>
MDM/Problems Addressed
Differential Diagnosis Includes:
Gastritis versus GERD versus peptic ulcer versus cholelithiasis versus mesenteric ischemia versus cannabis hyperemesis syndrome.
MDM/Problems Addressed:
Labs showed mild leukocytosis, normal lipase, CT abdomen pelvis�evidence of enteritis.
Patient is treated with antiemetics, pain control with Dilaudid. Patient vomited GI cocktail with Xylocaine and .
Patient is not clinically improving, needs to be admitted for further management.
<Bert Kimball MD - Last Filed: 05/24/24 10:14>
*Radiology
Radiology exam reviewed: radiology read reviewed
*Pulse Oximetry
Patient hypoxic: no
*EKG
Interpreted by ED Provider?: Yes
Comparison EKG: changes noted (anterior inversions less pronounced)
Heart Rate: 74
Rate: normal
Rhythm: sinus
[place]: normal axis
Interval: normal interval
QRS Pattern: normal QRS
Ischemia: T-wave inversion
*Critical Care Note
Total Time (30-74mins, 75-104mins- exclusive of procedures): Not Applicable
Data Reviewed
Review of Other/Old Records Reveals: Labs, Records, Radiology Studies and Discharge Summary
Source: patient and records
ED Attending Note
<Sanam Sarkar MD, Resident - Last Filed: 05/24/24 10:27>
-
Portions of this chart may have been created with voice recognition software.� Occasional wrong word or��sound alike� substitutions may have occurred due to the inherent limitations of voice recognition software.
<Bert Kimball MD - Last Filed: 05/24/24 10:14>
ED Attending Note
Patient seen and examined by attending physician: Yes
I performed a history and physical exam of patient and discussed management with resident, I reviewed resident's note and agree with documented findings and plan of care.: Yes
ED Attending Note:
I have seen and evaluated the patient with a jizf-do-pfpo encounter. I have spoken to the resident and involved in the medical history, the physical exam, medical decision making.
Evaluation and management service: agree unless noted differently below.
Results interpretation: agree unless noted differently below.
Focused HPI: 63-year-old female with a past medical history as documented returns to the emergency room for evaluation of abdominal pain. Patient was notably admitted 2 days ago yesterday eloped just prior to being discharged (she says to care for
her dog). On initial presentation was complaining of epigastric pain with nausea and vomiting. She had an ultrasound which showed gallstones but no signs of cholecystitis, labs were significant for marginal troponin elevation and her EKG was
significant for some anterior T wave inversions. She was admitted to trend troponins and have cardiology and GI consultation; cardiology felt symptoms unlikely cardiac and GI felt likely related to gastroenteritis. She was ultimately being prepped
for discharge and eloped prior to being formally discharged. She says that she returned home yesterday evening and ate some toast for dinner and went straight to bed. She says that when she woke up this morning she had some saltines and took her
morning medications and had immediate return and she feels escalation of her symptoms. She describes an intense burning sensation in the epigastric region that does not radiate. Symptoms have been consistent. She reports associated nausea and dry
heaving�'there is nothing in me to vomit.' She denies any diarrhea, last bowel movement was 2 days ago. Denies any urinary symptoms. She has not had any fever or chills. She denies any history of NSAID use. She denies any history of alcohol
use. She is a former cigarette smoker. She currently uses regular medical marijuana. She is notably on Wegovy for weight loss but says that she has been stable on this dose for 6 months; last dose was 5 days ago. Prior surgical history of
appendectomy.
Physical exam: Awake alert appears uncomfortable. Hypertensive but otherwise normal vitals. No cardiac rubs gallops or murmurs appreciated. Lungs clear to auscultation bilaterally. Abdomen soft and nondistended, tender to palpation in the
epigastric region but no rebound tenderness or guarding. She has no edema in extremities and distal extremities warm well-perfused.
Differential diagnosis: Gastric/peptic ulcer, gastritis/gastroenteritis, cannabinoid hyperemesis syndrome, bowel obstruction considered somewhat less likely, ischemic bowel considered less likely; much lower suspicion for anginal equivalent with: no
chest pain, primary symptom of nausea that seems to have been triggered by eating/medications this morning, no exertional symptoms whatsoever, and cardiology assessment 24 hours ago during which they felt symptoms were noncardiac
Medical Decision Makin-year-old female with history as documented and recent admission and treatment for presumed gastroenteritis returns to the emergency department with burning epigastric pain associate with nausea and dry heaving she feels
escalated from symptoms for which she was just admitted. Vitals and exam as above. Will plan to check labs including CBC and a CMP, lipase. Check an EKG. Will check CT abdomen pelvis. Treat pain and nausea. Reassess after the above.
Labs reviewed: CBC shows slight leukocytosis to 11.6. CMP no clinically significant abnormalities. EKG shows anterior T wave inversions less prominent than prior. CT of the abdomen pelvis shows signs consistent with enteritis. Patient still
having significant pain and nausea, has required multiple rounds of antiemetics and parenteral pain medications here. Was not able to tolerate GI cocktail she vomited twice here. With inability to tolerate p.o. despite multiple rounds of
antiemetics and pain control will plan to admit for IV fluids and symptom control.
Discharge Plan
Departure
Patient Disposition: Admit
Date of Disposition: 05/24/24
Time of Disposition: 10:25
Presentation/result/management discussed w/ accepting MD/DO: Hospitalist
Discharge Problem:
Acute upper abdominal pain
Prescriptions:
No Action
methocarbamol 500 mg Tablet
500 mg PO TIDPRN PRN (Reason: NECK SPASMS)
gabapentin 300 mg Capsule
300 mg PO DAILYPRN PRN (Reason: Neurological Condition)
cholecalciferol (vitamin D3) [Vitamin D3] 25 mcg (1,000 unit) Capsule
1,000 unit PO DAILY
pantoprazole 40 mg Tablet,Delayed Release (Dr/Ec)
40 mg PO DAILY Qty: 30 1RF
dapagliflozin propanediol [Farxiga] 10 mg Tablet
10 mg PO DAILY Qty: 30 1RF
clopidogrel 75 mg Tablet
75 mg PO DAILY Qty: 30 1RF
acetaminophen 325 mg Tablet
650 mg PO Q4HPRN PRN (Reason: mild pain,headache,temp >101F ) Qty: 0 0RF
metoprolol succinate 100 mg Tablet Extended Release 24 Hr
100 mg PO DAILY Qty: 30 1RF
spironolactone 25 mg Tablet
12.5 mg PO DAILY
Eliquis 5 mg Tablet
5 mg PO BID
lorazepam 1 mg Tablet
1 mg PO HSPRN PRN (Reason: anxiety/sleep)
amiodarone 200 mg Tablet
200 mg PO DAILY
ezetimibe [Zetia] 10 mg Tablet
10 mg PO DAILY
rosuvastatin 40 mg Tablet
40 mg PO DAILY
Repatha SureClick 140 mg/mL Pen Injector
140 mg SC Q2W
Wegovy 0.5 mg/0.5 mL Pen Injector
0.75 mg SC TH
Entresto 97-103 mg Tablet
1 tab PO BID
Referrals:
Ivette Mandujano MD [Family Provider] -
Interventions
Interventions:
*Risk Screen - Suicide Last Done: 05/24/24 05:59
*General Assessment Last Done: 05/24/24 05:59
*Neglect/Abuse Screening Last Done: 05/24/24 05:59
OG-Blzunm-Dxqkvtsphs Assessment Last Done: 05/24/24 06:23
Discharge Date and Time
Print Language: ALBANIAN
[2024-05-24] MEDS: PROTONIX IV 40 MG IV (07:01)
[2024-05-24] MEDS: ZOFRAN 4 MG IV ×3 (07:01→14:38)
[2024-05-24] MEDS: MAALOX 50 PO (07:09)
[2024-05-24] MEDS: DILAUDID 0.5 MG IV ×2 (07:29→10:21)
[2024-05-24] MEDS: NSS 500 IV (10:21)
--- NOTE | 2024-05-24 12:01 | HPS.HSE ---
Addendum entered and electronically signed by Jose M Raymundo MD 05/24/24 17:14:
hold Plavix and Eliquis since gi planning egd in am
Original Note:
Family Physician
-
Family Physician: Ivette Mandujano MD
Chief Complaint
-
nausea and vomiting
History of Present Illness
Patient is 63 years old female with history of hypertension, hyperlipidemia ASCVD, A-fib, cardiomyopathy in the past that recovered, depression anxiety, came into the hospital recurrent nausea and vomiting. Patient was seen in the hospital just a
couple of days ago with similar complaints of nausea vomit and at the time lower chest discomfort. During that hospitalization she was evaluated by cardiology and GI. Recent echocardiogram unremarkable. Patient signed AGAINST MEDICAL ADVICE since
she had to take care of her dog but she tells me that she felt better when she left yesterday but today when she woke up this morning and she started taking her pill she started vomiting again and it has been nonstop. She has not been able to take
anything oral. She feels nauseous. She denies diarrhea. She denies fevers. She admits to having some chills. She denies abdominal pain but has some heartburn sensation. She denies any chest pain. She denies any shortness of breath. Today
hemoglobin is 14.2, CT scan of the abdomen and mild diffuse small bowel wall thickening nonspecific but may be secondary to an infectious or inflammatory enteritis and cholelithiasis and colonic diverticulosis as well as severe aortoiliac calcific
atherosclerosis. She was referred to hospitalist for further evaluation.
Medical History
Past Medical History
Past Medical History: Reports Other
Additional Past Medical History:
CAD/TN/CABG X 4 VESSEL October 2023
Ejection fraction 25-30% October 2023
VSD repair
ischemic cardiomyopathy
CHF
HTN
HLD
ADHD
osteoporosis
former smoker
Past Surgical History: Reports Other
Additional Past Surgical History:
Appendectomy
CABG x 4 vessel-S/P CABG (OLVERA to LAD, SVG to OM1, SVG to OM2, SVG to dRCA) by Dr. Coe (11/05/2023).
VSD repair
Left shoulder replacement
Cataract extraction
Social History
Tobacco: Former Smoker
Alcohol: None
Personal: Single
Living: Alone
Employment: Retired
Family History
Family History: Not pertinent
Allergies / Home Medications
Allergies reflects when Allergies were last updated in [facility].
Home Medications with original date entered in [facility]
Allergy/Medication List:
Allergies
Allergy/AdvReac Type Severity Reaction Status Date / Time
mold Allergy Mild Swelling Verified 01/30/24 03:36
Penicillins Allergy Anaphylaxis Verified 01/30/24 03:36
Home Medications
cholecalciferol (vitamin D3) 25 mcg (1,000 unit) capsule (Vitamin D3) 1,000 unit PO DAILY Supplement 11/01/23
gabapentin 300 mg capsule 300 mg PO DAILYPRN PRN Neurological Condition 11/01/23
methocarbamol 500 mg tablet 500 mg PO TIDPRN PRN NECK SPASMS 11/01/23
acetaminophen 325 mg tablet 650 mg (2 x 325 mg) PO Q4HPRN PRN mild pain,headache,temp >101F #0 tabs 11/09/23
clopidogrel 75 mg tablet 75 mg PO DAILY Heart disease/condition #30 tabs 11/09/23
dapagliflozin propanediol 10 mg tablet (Farxiga) 10 mg PO DAILY Heart Failure #30 tabs 11/09/23
metoprolol succinate 100 mg tablet,extended release 24 hr 100 mg PO DAILY Heart disease/condition #30 tabs 11/09/23
pantoprazole 40 mg tablet,delayed release 40 mg PO DAILY Gastrointestinal issue #30 tabs 11/09/23
apixaban 5 mg tablet (Eliquis) 5 mg PO BID Blood Clot Prevention/Tx 01/30/24
lorazepam 1 mg tablet 1 mg PO HSPRN PRN anxiety/sleep 01/30/24
spironolactone 25 mg tablet 12.5 mg PO DAILY Fluid Retention/Swelling 01/30/24
amiodarone 200 mg tablet 200 mg PO DAILY Arrhythmia 05/22/24
evolocumab 140 mg/mL subcutaneous pen injector (Repatha SureClick) 140 mg SC Q2W High Cholesterol 05/22/24
ezetimibe 10 mg tablet (Zetia) 10 mg PO DAILY High Cholesterol 05/22/24
rosuvastatin 40 mg tablet 40 mg PO DAILY High Cholesterol 05/22/24
semaglutide (weight loss) 0.5 mg/0.5 mL subcutaneous pen injector (Wegovy) 0.75 mg SC TH Weight loss 05/22/24
sacubitril 97 mg-valsartan 103 mg tablet (Entresto) 1 tab PO BID 05/24/24
Review of Systems
-
A 12 point ROS was completed and negative except as noted: Yes
Physical Exam
Vital Signs
Vital Signs
Temp Pulse Resp BP Pulse Ox
97.9 F 66 19 139/98 99
05/24/24 05:56 05/24/24 10:30 05/24/24 10:30 05/24/24 10:26 05/24/24 10:30
Physical exam:
General: Well Developed, Well Nourished and No Apparent Distress
HEENT: Normocephalic, Atraumatic and Dry Mucous Membranes
Respiratory: Clear to Auscultation; Negative Wheezes, Rales or Rhonchi
Cardiac: Regular Rhythm and S1/S2
GI: Soft, Nontender and Nondistended
Musculoskeletal: No Clubbing, No Cyanosis and No Edema
Neuro: Awake, Alert and Oriented
Psych: Calm
Physical Exam
General: Other
Laboratory Results
-
05/24/24 06:08
05/24/24 06:08
Laboratory Results
Total Bilirubin Cancelled 05/24/24 06:08
AST Cancelled 05/24/24 06:08
ALT Cancelled 05/24/24 06:08
Alkaline Phosphatase Cancelled 05/24/24 06:08
Lipase 72 U/L (23-300) 05/24/24 06:06
Data Reviewed
-
CT Scan: Image Personally Visualized and interpreted
Lab Data: Labs Reviewed by me
Impression/Plan
-
IMPRESSION:
Patient 63 years old female with multiple comorbidities presented to the hospital with recurrent and persistent nausea vomiting. Patient was recently in the hospital and signed AMA and came back with persistent nausea vomiting unable to take oral
intake or even her medications. She will need to be in the hospital and observed for further evaluation and management.
Impression:
Persistent nausea and vomiting-probably acute gastroenteritis or probably Wegovy related (weight loss med) but rule out other etiologies
Leukocytosis-likely reactive
Abnormal CT scan abnormal CT scan of the abdomen with mild diffuse small bowel wall thickening.
Cholelithiasis-with normal LFTs and lack of abdominal pain, I do not think this is contributing.
Conditions prior to presentation:
ASCVD
Hypertension
Paroxysmal atrial fibrillation
Ischemic cardiomyopathy with recovered left ventricular ejection fraction
Depression anxiety
PLAN:
Keep n.p.o.
IV fluids
Antiemetics
Hold off Wegovy
Will try to see if she can tolerate taking her oral medications, especially her cardiac meds.
Continue oral PPI if able to tolerate and if not then will switch to IV
She just had a recent cardiac workup unremarkable and no cardiac symptoms at this time so no need to pursue any further.
GI consult ([place] texted GI today)
SCDs and Eliquis for DVT prophylaxis
CODE STATUS full code
Time spent 55 minutes
[2024-05-24] MEDS: NSS 1000 IV ×3 (12:41→22:09)
--- NOTE | 2024-05-24 13:26 | CON.GI ---
Medical History
Chief Complaint / HPI
Chief Complaint: Epigastric pain, nausea vomiting
History of Present Illness:
Briefly, Saige Alva is a 63 y.o. female with history of recent CAD w/ NSTEMI s/p CABG admitted with recurrent burning epigastric discomfort and NBNB emesis as well as some chills but no fever, prompting her to come in for evaluation. She was
admitted to the hospital 2 days ago with the same symptoms. Her symptoms were mostly consistent with gastroenteritis and had improved after symptomatic management. She was ultimately being prepped for discharge yesterday but left AMA prior to being
formally discharged.
She says that after returning home yesterday evening, she was able to eat some toast for dinner and went to bed. This morning, after having some crackers and taking her morning medications, she suddenly started having the same intense burning
sensation in the epigastric region. Her pain does not radiate and is not positional. She reports associated nausea but no vomiting. She denies any diarrhea, last bowel movement was 2 days ago. Denies any hematemesis/melena/hematochezia. She has
not had any fever but did have occasional chills this morning. She denies any history of NSAID or alcohol use. She is taking Wegovy for weight loss from 6 months ago; last dose was 5 days ago.
Past Medical History
Past Medical History: CAD, HTN, Hypercholesterolemia and Other
Past Surgical History: Appendectomy
Social History
Tobacco: Former Smoker
Alcohol: None
Drug: Marijuana
Living: Alone
Allergies / Home Medications
Allergy/AdvReac Type Severity Reaction Status Date / Time
mold Allergy Mild Swelling Verified 01/30/24 03:36
Penicillins Allergy Anaphylaxis Verified 05/24/24 13:05
at 9 years
old
requiring
intubation
�Medication �Instructions �Recorded
cholecalciferol (vitamin D3) 25 1,000 unit PO DAILY Supplement 11/01/23
mcg (1,000 unit) capsule (Vitamin
D3)
gabapentin 300 mg capsule 300 mg PO DAILYPRN PRN 11/01/23
Neurological Condition
methocarbamol 500 mg tablet 500 mg PO TIDPRN PRN NECK SPASMS 11/01/23
acetaminophen 325 mg tablet 650 mg (2 x 325 mg) PO Q4HPRN PRN 11/09/23
mild pain,headache,temp >101F #0
tabs
clopidogrel 75 mg tablet 75 mg PO DAILY Heart 11/09/23
disease/condition #30 tabs
dapagliflozin propanediol 10 mg 10 mg PO DAILY Heart Failure #30 11/09/23
tablet (Farxiga) tabs
metoprolol succinate 100 mg 100 mg PO DAILY Heart 11/09/23
tablet,extended release 24 hr disease/condition #30 tabs
pantoprazole 40 mg tablet,delayed 40 mg PO DAILY Gastrointestinal 11/09/23
release issue #30 tabs
apixaban 5 mg tablet (Eliquis) 5 mg PO BID Blood Clot 01/30/24
Prevention/Tx
lorazepam 1 mg tablet 1 mg PO HSPRN PRN anxiety/sleep 01/30/24
spironolactone 25 mg tablet 12.5 mg PO DAILY Fluid 01/30/24
Retention/Swelling
amiodarone 200 mg tablet 200 mg PO DAILY Arrhythmia 05/22/24
evolocumab 140 mg/mL subcutaneous 140 mg SC Q2W High Cholesterol 05/22/24
pen injector (Jorge Luis Samano)
ezetimibe 10 mg tablet (Zetia) 10 mg PO DAILY High Cholesterol 05/22/24
rosuvastatin 40 mg tablet 40 mg PO DAILY High Cholesterol 05/22/24
semaglutide (weight loss) 0.5 0.75 mg SC TH Weight loss 05/22/24
mg/0.5 mL subcutaneous pen
injector (Wegovy)
sacubitril 97 mg-valsartan 103 mg 1 tab PO BID 05/24/24
tablet (Entresto)
Review of Systems
-
History Source: Patient
All other systems: A 12 pt ROS was Negative except as stated above in HPI
Constitutional: Reports Chills
Abdomen/GI: Reports Abdominal Pain, Nausea and Pain
Vital Signs
Temp Pulse Resp BP Pulse Ox
97.9 F 71 17 147/84 97
05/24/24 05:56 05/24/24 13:15 05/24/24 13:15 05/24/24 13:00 05/24/24 13:00
Physical Exam
Exam
General: Well Developed, Pain, Chills and Other (Appears in distress due to pain)
HEENT: Normocephalic
Respiratory: Clear
Cardiac: S1/S2 and Regular Rhythm
GI: Soft, Non Tender and Non Distended
Neuro: Awake, Alert, Oriented and AO x 3
Results
WBC Cancelled 05/24/24 06:08
Hgb Cancelled 05/24/24 06:08
Hct Cancelled 05/24/24 06:08
MCV Cancelled 05/24/24 06:08
Plt Count Cancelled 05/24/24 06:08
Absolute Neuts (auto) Cancelled 05/24/24 06:08
Sodium Cancelled 05/24/24 06:08
Potassium Cancelled 05/24/24 06:08
Chloride Cancelled 05/24/24 06:08
Carbon Dioxide Cancelled 05/24/24 06:08
BUN Cancelled 05/24/24 06:08
Creatinine Cancelled 05/24/24 06:08
Calcium Cancelled 05/24/24 06:08
Total Bilirubin Cancelled 05/24/24 06:08
AST Cancelled 05/24/24 06:08
ALT Cancelled 05/24/24 06:08
Alkaline Phosphatase Cancelled 05/24/24 06:08
Lipase 72 U/L (23-300) 05/24/24 06:06
Diagnostic Image Results:
abdomen/pelvis CT (05/24):
1. Mild diffuse small bowel wall thickening, nonspecific but may be secondary to an infectious or inflammatory enteritis.
2. Cholelithiasis.
3. Colonic diverticulosis.
4. Severe aortobiiliac calcified atherosclerosis.
Prior GI Procedures:
EGD:
Colonoscopy:
Assessment / Plan
-
63 years old female with history of recent CAD w/ NSTEMI s/p CABG here due to burning epigastric discomfort and dry heaves.
-Keep n.p.o.
-IV fluids
-Antiemetics and IV PPI
-Hold off Wegovy
-Pain medication as needed
-Possibly consider EGD
-
-
Thank you for consultation and allowing me to participate in the patient's care. Please call the environmental studies department chair GI physician during the after hours with any questions or concerns.
[2024-05-24] MEDS: XYLOCAINE VISCOUS CUP 15 ML PO (15:16)
[2024-05-24] MEDS: DONNATAL 10 ML PO (15:17)
[2024-05-24] MEDS: PROTONIX 40 MG PO ×2 (15:17→20:31)
[2024-05-24] MEDS: MAALOX 30 ML PO (15:17)
[2024-05-24] MEDS: CARAFATE SUSPENSION 1 GM PO (17:01)
[2024-05-24] MEDS: ENTRESTO 97 MG/103 MG 1 TAB PO (20:49)
[2024-05-24] MEDS: NEURONTIN 600 MG PO (22:04)
[2024-05-24] MEDS: ATIVAN 1 MG PO (22:06)
[2024-05-25] VITALS (7 sets, daily range): BP systolic 113–153; BP diastolic 67–83; BMI 27.3
[2024-05-25 07:13] LABS: % Basophils 0.4 % (0-2); % Immature Granulocytes 0.4 % (0-0.5); % Lymphocytes 15.8 % (20.5-51.1); % Monocytes 6.9 % (1.7-9.3); % Neutrophils 76.5 % (42.2-75.2); Absolute Basophils 0.1 10^3/uL (0-0.2); Absolute Immature Granulocytes 0.1 10^3/uL (0-0.05); Absolute Lymphocytes 1.9 10^3/uL (1.2-3.4); Absolute Monocytes 0.8 10^3/uL (0.1-0.6); Absolute Neutrophils 8.9 10^3/uL (1.4-6.5); Hematocrit 39.4 % (37.0-47.0); Hemoglobin 13.4 g/dL (12.0-16.0); Mean Corpuscular Hgb 31.7 pg (27.0-31.0); Mean Corpuscular Volume 93.1 fL (81.0-99.0); Mean Platelet Volume 10.2 fL (7.4-10.4); Nucleated Red Blood Cells % 0 %; Platelet Count 289 10^3/uL (130-400); Red Blood Cell Count 4.23 10^6/uL (4.20-5.40); Red Cell Dist. Width 14.9 % (11.5-14.5); White Blood Cell Count 11.7 10^3/uL (4.8-10.8)
[2024-05-25 07:34] LABS: ALT (SGPT) 16 U/L (0-35); AST (SGOT) 26 U/L (14-36); Albumin 4.5 g/dl (3.5-5.0); Alkaline Phosphatase 76 U/L (38-126); Blood Urea Nitrogen 11 mg/dl (7-17); Calcium 9.2 mg/dl (8.4-10.2); Carbon Dioxide 13 mmol/L (22-30); Chloride 105 mmol/L (98-107); Estimated Creatinine Clearance 88 ml/min; Glucose 63 mg/dl (70-99); Potassium 4.1 mmol/L (3.5-5.1); Sodium 133 mmol/L (135-145); Total Bilirubin 0.6 mg/dl (0.2-1.3); Total Protein 6.9 g/dl (6.3-8.2); eGFR > 60.00
[2024-05-25] MEDS: PACERONE 200 MG PO (07:59)
[2024-05-25] MEDS: ENTRESTO 97 MG/103 MG 1 TAB PO ×2 (08:01→21:08)
[2024-05-25] MEDS: TOPROL XL 100 MG PO (08:01)
[2024-05-25] MEDS: NSS 1000 IV (08:02)
[2024-05-25] MEDS: ZETIA 10 MG PO (08:02)
[2024-05-25] MEDS: VITAMIN D3 (cholecalciferol) 25 MCG PO (08:02)
[2024-05-25] MEDS: ALDACTONE 12.5 MG PO (08:02)
[2024-05-25] MEDS: PROTONIX 40 MG PO ×2 (08:02→20:37)
[2024-05-25] MEDS: CRESTOR 40 MG PO (08:02)
--- NOTE | 2024-05-25 08:42 | W.PN.HOSP.TC ---
Addendum entered and electronically signed by Jose M Raymundo MD 05/25/24 17:41:
labs this morning showed some unexplained acidosis-->will repeat bmp stat along with lactic acid.
Original Note:
Today's Communication/Plan
-
PPI. Monitor hemoglobin.
Assessment / Plan
Assessment / Plan
Physical exam:
General: Well Developed, Well Nourished and No Apparent Distress
HEENT: Normocephalic, Atraumatic and Moist Mucous Membranes
Respiratory: Clear to Auscultation; Negative Wheezes, Rales or Rhonchi
Cardiac: Regular Rhythm and S1/S2
GI: Soft, Nontender and Nondistended
Musculoskeletal: No Clubbing, No Cyanosis and No Edema
Neuro: Awake, Alert and Oriented
Psych: Calm
EGD:
Impression: - 1 cm hiatal hernia.
- [place]-colored mucosa suspicious for short-segment
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 Biopsied.
- Hematin (altered blood/ccbvug-smnjps-dxze material)
in the cardia, in the gastric fundus and in the
gastric body.
- Erythematous mucosa in the antrum.
- Biopsies were taken with a cold forceps for
Helicobacter pylori testing.
- Normal examined duodenum.
A/P:
Impression:
Persistent nausea and vomiting-gastritis and acute gastroenteritis and probably a component of Wegovy related (weight loss med)
Leukocytosis-likely reactive, already trending down
Abnormal CT scan abnormal CT scan of the abdomen with mild diffuse small bowel wall thickening.
Cholelithiasis-with normal LFTs and lack of abdominal pain, I do not think this is contributing.
Conditions prior to presentation:
ASCVD
Hypertension
Paroxysmal atrial fibrillation
Ischemic cardiomyopathy with recovered left ventricular ejection fraction
Depression anxiety
PLAN:
GI consult appreciated and started on clear liquid diet yesterday
Plan for EGD today and results as above
Keep n.p.o. for procedure today now started full liquid diet postprocedure
IV fluids can be stopped
Repeat H&H tomorrow and if stable and able to advance diet possible discharge
Discussed with GI and they are okay to restart Plavix and Eliquis today
Antiemetics
Hold off Wegovy
Continue PPI
She just had a recent cardiac workup unremarkable and no cardiac symptoms at this time so no need to pursue any further.
SCDs and Eliquis for DVT prophylaxis
CODE STATUS full code
Anticipated Discharge: 24 - 48 hours
Subjective/Interval History
-
Date of Service: May 25, 2024
Patient feels better today. No vomiting.
Objective Data
-
Labs:
Laboratory Results
05/25/24
06:47
WBC 11.7 H
Hgb 13.4
Hct 39.4
Plt Count 289
Sodium 133 L
Potassium 4.1
Chloride 105
Carbon Dioxide 13 L*
BUN 11
Creatinine 0.6
Glucose 63 L
Calcium 9.2
Total Bilirubin 0.6
AST 26
ALT 16
Alkaline Phosphatase 76
Vital Signs:
Vital Signs
Temp Pulse Resp BP Pulse Ox
99.0 F 72 16 113/67 98
05/25/24 08:05 05/25/24 08:05 05/25/24 08:05 05/25/24 08:05 05/25/24 08:05
I&O
05/24/24 05/25/24 05/26/24
06:59 06:59 06:59
Intake Total 1440 / 1440
Balance 1440 / 1440
[2024-05-25] MEDS: ZOFRAN 4 MG IV ×2 (09:54→15:57)
[2024-05-25] MEDS: PLAVIX 75 MG PO (14:22)
[2024-05-25] MEDS: CARAFATE SUSPENSION 1 GM PO ×2 (15:57→21:08)
--- NOTE | 2024-05-25 16:45 | CM ---
Received chart, met with patient to obtain information for assessment. Patient lives alone in a one story home with no steps. She stated that she is independent with her ADLs, personal care, bathing and dressing. 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 She drives and can get to her appointments and do all of her own shopping.
Patient denied any DME in home.
She has had VN services in the past through .
Patient has a prescription plan and uses, [facility] in [place] for all of her medications.
Her PCP is, Ivette Mandujano.
Patient stated that she would like to return home when medically cleared for discharge.
Plan: Case management will continue to follow and assist with discharge planning. Home when stable.
[2024-05-25 18:02] LABS: Hematocrit 40.8 % (37.0-47.0)
[2024-05-25] MEDS: PHENERGAN 50.5 MG IV (18:06)
[2024-05-25 18:14] LABS: Lactic Acid 1.7 mmol/L (0.7-2.0)
[2024-05-25 18:15] LABS: Calcium 10.1 mg/dl (8.4-10.2); Carbon Dioxide 18 mmol/L (22-30); Estimated Creatinine Clearance 75 ml/min; eGFR > 60.00
[2024-05-25 18:24] LABS: Blood Urea Nitrogen 11 mg/dl (7-17); Chloride 102 mmol/L (98-107); Glucose 91 mg/dl (70-99); Potassium 4.6 mmol/L (3.5-5.1); Sodium 135 mmol/L (135-145)
[2024-05-25] MEDS: NEURONTIN 600 MG PO (20:37)
[2024-05-25] MEDS: ELIQUIS 5 MG PO (20:38)
[2024-05-25] MEDS: ATIVAN 1 MG PO (21:09)
[2024-05-26] MEDS: NSS 1000 IV (01:32)
[2024-05-26 05:41] VITALS: BMI 27.3
[2024-05-26 06:44] LABS: Hematocrit 39.6 % (37.0-47.0); Hemoglobin 13.7 g/dL (12.0-16.0); Mean Corp Hgb Conc. 34.6 g/dL (33.0-37.0); Mean Corpuscular Hgb 32.3 pg (27.0-31.0); Mean Corpuscular Volume 93.4 fL (81.0-99.0); Mean Platelet Volume 10.3 fL (7.4-10.4); Platelet Count 275 10^3/uL (130-400); Red Blood Cell Count 4.24 10^6/uL (4.20-5.40); Red Cell Dist. Width 14.6 % (11.5-14.5)
[2024-05-26 07:03] LABS: Blood Urea Nitrogen 8 mg/dl (7-17); Calcium 9.2 mg/dl (8.4-10.2); Carbon Dioxide 17 mmol/L (22-30); Chloride 104 mmol/L (98-107); Estimated Creatinine Clearance 75 ml/min; Glucose 72 mg/dl (70-99); Potassium 3.9 mmol/L (3.5-5.1); Sodium 134 mmol/L (135-145); eGFR > 60.00
[2024-05-26 07:52] VITALS: BP 145/82
[2024-05-26] MEDS: ZETIA 10 MG PO (08:17)
[2024-05-26] MEDS: PLAVIX 75 MG PO (08:17)
[2024-05-26] MEDS: ENTRESTO 97 MG/103 MG 1 TAB PO (08:17)
[2024-05-26] MEDS: CRESTOR 40 MG PO (08:17)
[2024-05-26] MEDS: VITAMIN D3 (cholecalciferol) 25 MCG PO (08:18)
[2024-05-26] MEDS: PROTONIX 40 MG PO (08:18)
[2024-05-26] MEDS: TOPROL XL 100 MG PO (08:18)
[2024-05-26] MEDS: PACERONE 200 MG PO (08:18)
[2024-05-26] MEDS: ALDACTONE 12.5 MG PO (08:18)
[2024-05-26] MEDS: ELIQUIS 5 MG PO (08:18)
--- NOTE | 2024-05-26 08:47 | W.PN.HOSP.TC ---
Today's Communication/Plan
-
Discharge planning
Assessment / Plan
Assessment / Plan
Physical exam:
General: Well Developed, Well Nourished and No Apparent Distress
HEENT: Normocephalic, Atraumatic and Moist Mucous Membranes
Respiratory: Clear to Auscultation; Negative Wheezes, Rales or Rhonchi
Cardiac: Regular Rhythm and S1/S2
GI: Soft, Nontender and Nondistended
Musculoskeletal: No Clubbing, No Cyanosis and No Edema
Neuro: Awake, Alert and Oriented
Psych: Calm
EGD:
Impression: - 1 cm hiatal hernia.
- [place]-colored mucosa suspicious for short-segment
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 Biopsied.
- Hematin (altered blood/ubxdhq-iezvmz-ehqh material)
in the cardia, in the gastric fundus and in the
gastric body.
- Erythematous mucosa in the antrum.
- Biopsies were taken with a cold forceps for
Helicobacter pylori testing.
- Normal examined duodenum.
A/P:
Impression:
Persistent nausea and vomiting-gastritis and acute gastroenteritis and probably a component of Wegovy related (weight loss med)
Leukocytosis-likely reactive, already trending down
Abnormal CT scan abnormal CT scan of the abdomen with mild diffuse small bowel wall thickening.
Cholelithiasis-with normal LFTs and lack of abdominal pain, I do not think this is contributing.
Metabolic acidosis-resolving
Hyponatremia
Conditions prior to presentation:
ASCVD
Hypertension
Paroxysmal atrial fibrillation
Ischemic cardiomyopathy with recovered left ventricular ejection fraction
Depression anxiety
PLAN:
Advance diet today
Plan to discharge today
GI consult appreciated
S/p EGD and results as above
Discussed with GI and they were okay to restart Plavix and Eliquis
Antiemetics
Hold off Wegovy
Continue PPI
She just had a recent cardiac workup unremarkable and no cardiac symptoms at this time so no need to pursue any further.
SCDs and Eliquis for DVT prophylaxis
CODE STATUS full code
Anticipated Discharge: Today
Subjective/Interval History
-
Date of Service: May 26, 2024
No longer nausea or vomiting. No abdominal pain
Objective Data
-
Labs:
Laboratory Results
05/26/24
06:16
WBC 11.0 H
Hgb 13.7
Hct 39.6
Plt Count 275
Sodium 134 L
Potassium 3.9
Chloride 104
Carbon Dioxide 17 L
BUN 8
Creatinine 0.7
Glucose 72
Calcium 9.2
Vital Signs:
Vital Signs
Temp Pulse Resp BP Pulse Ox
98.2 F 66 16 145/82 99
05/26/24 07:52 05/26/24 08:18 05/26/24 07:52 05/26/24 08:18 05/26/24 07:52
I&O
05/25/24 05/26/24 05/27/24
06:59 06:59 06:59
Intake Total 1440 / 1440 780 / 780
Balance 1440 / 1440 780 / 780
[2024-05-26] MEDS: NSS IV (09:20)
--- NOTE | 2024-05-26 11:29 | W.DCSUMMARY ---
Discharge Summary
Discharge Data
Date of Admission: 05/24/24
Date of Discharge: 05/26/24
-
Pending Results: No
Hospital Course
Patient 63 years old female history of CAD, hypertension, hyperlipidemia, presented to the hospital abdominal epigastric discomfort associated with nausea and vomiting. Patient initially came to the hospital evaluated by GI and cardiology and
signed herself AGAINST MEDICAL ADVICE but returned due to persistent nausea and vomiting. GI was consulted again and she was taken for an EGD. EGD revealed gastritis. Patient was given IV fluids, antiemetics, PPI. Patient improved substantially.
She has been able to be placed back to her regular diet. She feels back to her normal. She will be discharged in stable condition today.
Discharge Plan
-
Patient Disposition: Home (Routine Discharge)
Discharge Diagnosis/Procedures: Acute gastritis. Nausea and vomiting. Leukocytosis. History of coronary artery disease. History of paroxysmal atrial fibrillation. History of ischemic cardiomyopathy. History of depression anxiety.
Diet: Low Cholesterol
Activity: As tolerated
Blood Work: Please PCP to order CBC, BMP within 1 week
Referrals:
Hattie Francis DO [Active] - in two to four weeks
Ivette Mandujano MD [Family Provider] - in less than 1 week
Prescriptions:
Continued
methocarbamol 500 mg Tablet
500 mg PO TIDPRN PRN (Reason: NECK SPASMS)
gabapentin 300 mg Capsule
600 mg PO HS
cholecalciferol (vitamin D3) [Vitamin D3] 25 mcg (1,000 unit) Capsule
1,000 unit PO DAILY
pantoprazole 40 mg Tablet,Delayed Release (Dr/Ec)
40 mg PO DAILY Qty: 30 1RF
dapagliflozin propanediol [Farxiga] 10 mg Tablet
10 mg PO DAILY Qty: 30 1RF
clopidogrel 75 mg Tablet
75 mg PO DAILY Qty: 30 1RF
acetaminophen 325 mg Tablet
650 mg PO Q4HPRN PRN (Reason: mild pain,headache,temp >101F ) Qty: 0 0RF
metoprolol succinate 100 mg Tablet Extended Release 24 Hr
100 mg PO DAILY Qty: 30 1RF
spironolactone 25 mg Tablet
12.5 mg PO DAILY
Eliquis 5 mg Tablet
5 mg PO BID
lorazepam 1 mg Tablet
1 mg PO HSPRN PRN (Reason: anxiety/sleep)
amiodarone 200 mg Tablet
200 mg PO DAILY
ezetimibe [Zetia] 10 mg Tablet
10 mg PO DAILY
rosuvastatin 40 mg Tablet
40 mg PO DAILY
Repatha SureClick 140 mg/mL Pen Injector
140 mg SC Q2W
Wegovy 0.5 mg/0.5 mL Pen Injector
0.75 mg SC TH
Entresto 97-103 mg Tablet
1 tab PO BID
Discharge Orders:
Discharge Patient (As Directed); Ordered 05/26/24
Ordered By: Jose M Raymundo
Discharge Date and Time
Discharge Date/Time: 05/26/24 13:59
Print Language: BELARUSIAN
--- NOTE | 2024-05-26 12:37 | CM ---
Addendum entered by KATHI Mata 05/26/24 13:49:
Discharge order in. Patient ordering an Uber home. Updated patient's sister.
Original Note:
Received call from patient's sister who lives in [place] wanting to know the status of the discharge. She was made aware that patient has discharge order in. She stated that she will call a friend to come pick her up later today.
Plan: Case management will continue to follow and assist with discharge planning. Home.
[2024-05-26 13:14] VITALS: BP 143/85
== END 2024-05-26 13:59 | disposition home or self-care (01) ==
LOC: 3 WEST ACU 12:12
PROVIDERS: Emergency Medicine; ADMITTING PHYSICIAN Hospitalist; CONSULT PHYSICIAN Internal Medicine; EMERGENCY PHYSICIAN Emergency Medicine; FAMILY PHYSICIAN Family Medicine
DX: K29.01 Acute gastritis with bleeding (principal); R11.2 Nausea with vomiting, unspecified; R10.9 Unspecified abdominal pain; F12.90 Cannabis use, unspecified, uncomplicated; K80.20 Calculus of gallbladder without cholecystitis without obstruction; E78.00 Pure hypercholesterolemia, unspecified; I25.5 Ischemic cardiomyopathy; M81.0 Age-related osteoporosis without current pathological fracture; I25.10 Atherosclerotic heart disease of native coronary artery without angina pectoris; I50.9 Heart failure, unspecified; F41.9 Anxiety disorder, unspecified; D72.829 Elevated white blood cell count, unspecified; I48.0 Paroxysmal atrial fibrillation; R68.83 Chills (without fever); I11.0 Hypertensive heart disease with heart failure; I25.2 Old myocardial infarction; K22.89 Other specified disease of esophagus; K22.70 Barrett's esophagus without dysplasia; E87.1 Hypo-osmolality and hyponatremia; K31.89 Other diseases of stomach and duodenum; E87.20 Acidosis, unspecified; F90.9 Attention-deficit hyperactivity disorder, unspecified type; K57.30 Diverticulosis of large intestine without perforation or abscess without bleeding; K44.9 Diaphragmatic hernia without obstruction or gangrene; Z87.891 Personal history of nicotine dependence; Z79.1 Long term (current) use of non-steroidal anti-inflammatories (NSAID); Z90.49 Acquired absence of other specified parts of digestive tract; Z96.612 Presence of left artificial shoulder joint; Z95.1 Presence of aortocoronary bypass graft; Z79.01 Long term (current) use of anticoagulants; Z79.02 Long term (current) use of antithrombotics/antiplatelets; Z88.0 Allergy status to penicillin
CPT/HCPCS: 43239; 88305; 74177; 80048; 80053; 83605; 83690; 85014; 85018; 85025; 85027; 88342; 93005; 96361; 96374; 96375; 96376; 99285; 99406; G0378; Q9967

== ENCOUNTER 2024-08-08 12:36 | Inpatient (IN) | payer OTHER, SELFPAY ==
[2024-08-08 06:31] LABS: % Basophils 0.4 % (0-2); % Eosinophils 0.4 % (0-6); % Immature Granulocytes 0.5 % (0-0.5); % Lymphocytes 13.3 % (20.5-51.1); % Neutrophils 81.4 % (42.2-75.2); Absolute Basophils 0.1 10^3/uL (0-0.2); Absolute Eosinophils 0.1 10^3/uL (0-0.7); Absolute Immature Granulocytes 0.1 10^3/uL (0-0.05); Absolute Lymphocytes 2.2 10^3/uL (1.2-3.4); Absolute Monocytes 0.7 10^3/uL (0.1-0.6); Absolute Neutrophils 13.5 10^3/uL (1.4-6.5); Hematocrit 43.5 % (37.0-47.0); Mean Corp Hgb Conc. 34.5 g/dL (33.0-37.0); Mean Corpuscular Hgb 32.1 pg (27.0-31.0); Mean Corpuscular Volume 92.9 fL (81.0-99.0); Mean Platelet Volume 10.3 fL (7.4-10.4); Nucleated Red Blood Cells % 0 %; Platelet Count 361 10^3/uL (130-400); Red Blood Cell Count 4.68 10^6/uL (4.20-5.40); Red Cell Dist. Width 13.7 % (11.5-14.5); White Blood Cell Count 16.6 10^3/uL (4.8-10.8)
[2024-08-08] MEDS: ZOFRAN 4 MG IV (06:36)
[2024-08-08 06:45] LABS: ALT (SGPT) 27 U/L (0-35); AST (SGOT) 36 U/L (14-36); Alkaline Phosphatase 83 U/L (38-126); Blood Urea Nitrogen 12 mg/dl (7-17); Calcium 10.2 mg/dl (8.4-10.2); Carbon Dioxide 17 mmol/L (22-30); Chloride 108 mmol/L (98-107); Estimated Creatinine Clearance 66 ml/min; Glucose 119 mg/dl (70-99); Potassium 4.5 mmol/L (3.5-5.1); Sodium 146 mmol/L (135-145); Total Bilirubin 0.6 mg/dl (0.2-1.3); Total Protein 7.6 g/dl (6.3-8.2); eGFR > 60.00
[2024-08-08] MEDS: BENADRYL 25 MG IV (07:08)
[2024-08-08] MEDS: COMPAZINE 10 MG IV (07:08)
--- NOTE | 2024-08-08 07:10 | ED.GENMED ---
History of Present Illness
<URIEL Rizvi - Last Filed: 08/08/24 12:52>
General
Chief Complaint: Chest Pain
Source: patient
Exam Limitations: none
Time Seen by Provider: 08/08/24 07:09
Nursing documentation reviewed up to this point in time: agreed with
History of Present Illness
History of Present Illness:
Patient is a 63-year-old female who presents to the ER complaining of epigastric discomfort off and on for the past several days. With this discomfort she has had nausea and vomiting. She also has felt some pain in her left side chest but related
this to vomiting. She does have a history of AL with bypass as well as gastritis along with other medical issues. She does report this feels similar to her gastritis in the past. She does have some neck pain which she had with her AL but she
reports this feels muscular. Patient denies any fevers. She denies any shortness of breath. She denies any back pain.
Patient was admitted in the beginning of May and had a EGD which showed gastritis.
Past History
<URIEL Rizvi - Last Filed: 08/08/24 12:52>
Past History
ED Past Medical History: CAD, CHF, HTN, Hypercholesterolemia, AL and Other (ADHD, osteoporosis, ischemic cardiomyopathy)
ED Past Surgical History: Appendectomy, Cardiac (Quad Bypass, Ventricular septal defect, ), Orthopedic (Left shoulder replacement) and Other (cataracts, )
Patient has exhibited threatening behavior?: No
Social History
Tobacco: Former smoker
Alcohol: None
Drug: Marijuana
Personal: Single
Living: alone
Review of Systems
<URIEL Rizvi - Last Filed: 08/08/24 12:52>
Review of Systems
Allergies reviewed?: Yes
All Other Systems: ROS reviewed and negative except as documented in HPI and ROS
Constitutional: Reports no symptoms
Respiratory: Reports no symptoms; Denies trouble breathing
Cardiac: Denies chest pain
ABD/GI: Reports abdominal pain, nausea, vomiting and diarrhea
Musculoskeletal: Reports neck pain; Denies back pain
Skin: Reports no symptoms
Neurological: Reports no symptoms
Psychiatric: Reports no symptoms
Phy Exam
<URIEL Rizvi - Last Filed: 08/08/24 12:52>
General Physical Exam
General Presentation: no apparent distress
General age: appears stated age
General Skin: warm and dry
General Habitus: normal
General Hydration: appears well hydrated
Cardiovascular Exam
Cardiovascular Exam: regular rate/rhythm, no murmur and normal peripheral pulses
Pulmonary Exam
Pulmonary Exam: lungs clear and no respiratory distress
Gastrointestinal Exam
Gastrointestinal Exam: other (tender epigastric region no ruq tenderness)
Neurological Exam
Neurological Exam: alert and oriented x3
Musculoskeletal Exam
Musculoskeletal Exam: full ROM
Skin Exam
Skin Exam: normal color and warm/dry
Psychiatric Exam
Psychiatric Exam: normal mood/affect
Scores
<URIEL Rizvi - Last Filed: 08/08/24 12:52>
Heart Score for Chest Pain Patients
STEMI patient?: Not applicable
Course
<URIEL Rizvi - Last Filed: 08/08/24 12:52>
Orders/Labs/Results
Orders:
Orders
08/08/24
Electrocardiogram (*1) Stat
Reason for Study: Chest Pain
Comment: DONE
08/08/24 06:20
IV Insert/Care/Rem.- Treatment PRN
O2 Therapy [RESP] Urgent
Titrate/Wean O2 to maintain O2 sat greater than (%): 90
Special Instructions: Maintain sats >/=90%
08/08/24 06:22
Complete Blood Count/With Diff Urgent
Comprehensive Metabolic Panel Urgent
Lipase Urgent
Troponin I Urgent
08/08/24 06:35
Ondansetron Injectable [Zofran] 4 mg .ROUTE .[facility]-MED ONE
08/08/24 06:36
Ondansetron Injectable [Zofran] 4 mg IV NOW STA
08/08/24 07:03
Diphenhydramine [Benadryl] 25 mg IV NOW STA
Prochlorperazine [Compazine] 10 mg IV NOW STA
08/08/24 07:28
Mag Hydrox/Al Hydrox/Simeth [Maalox] 30 ml Phenobarb/Hyoscy/Atropine/Scop [] 10 ml PO NOW
08/08/24 07:29
Pantoprazole [Protonix IV] 40 mg IV NOW STA
08/08/24 07:36
Mag Hydrox/Al Hydrox/Simeth [Maalox] 30 ml .ROUTE .[facility]-MED ONE
Phenobarb/Hyoscy/Atropine/Scop [] 10 ml .ROUTE .[facility]-MED ONE
08/08/24 07:50
ECG [Electrocardiogram (*1)] Urgent
Reason for Study: Chest Pain
EKG- Treatment ONCE
08/08/24 07:53
Add On- LAB Urgent
Tests Added?: lipase
08/08/24 08:01
Morphine Sulfate 4 mg IV NOW STA
08/08/24 08:02
Add On- LAB Urgent
Tests Added?: lipase
08/08/24 08:26
Echo 2D MMode Color/Doppler Routine
Reason for Study: Chest pain, abnormal troponin
08/08/24 08:53
CXR2 [CR Chest - 2 Views ] Urgent
Comment:
Reason For Exam: Hypoxia, shortness of breath, CP
08/08/24 09:23
COVID-19 Antigen Routine
Source: Nasal Swab
Troponin I Routine
08/08/24 11:49
Admit/Transfer Patient As Directed
Co-Sign Provider:
Level of Care: Inpatient admission
Assign to:: IVU
Physician / Group: [facility]/Hospitalist
Diagnosis: Epigastric Pain
Reason for Hospitalization: Epigastric Pain
Coronary Artery Disease
Elevated Troponin
Expected length of stay greater than two midnights?: Yes
ELOS- Estimated Length of Stay in days: 5
I certify the patient meets the requirements for IP care: Yes
PRN Pain Medication Management As Directed
May give lesser potent ordered pain med per pt: Yes
preference::
Protocol:: Medication orders for pain may be administered in a
manner that supports deferring to patient preference
when the pt is:
- Requesting an ordered lesser potent pain medication.
Least to most potent pain medications are defined
as: acetaminophen < NSAID < tramadol < opioids
(morphine, oxycodone, hydromorphone).
- Requesting a lesser dose of the same medication IF
ORDERED.
- Requesting a less intrusive route of administration
if both routes are prescribed by the provider (PO <
IV).
08/08/24 11:56
Code Status As Directed
Resuscitation Status: Full Code
08/08/24 12:09
PTT Urgent
Comment: Obtain baseline before beginning heparin infusion if not already collected
Heparin Protocol- PTT Orders As Directed
PTT per Heparin protocol: -Obtain CBC and baseline PTT - if not already collected.
-Obtain PTT 6 hours from start of infusion. Then, every 6 hours until 2 consecutive
PTT's are therapeutic. Then, PTT Daily.
-With each rate change, obtain PTT every 6 hours until 2 consecutive PTT's are
therapeutic. Then, PTT Daily.
Notify MD As Directed
Notify physician if: PTT is greater than or equal to 200.
10/14/24 12:15
Heparin 74871 Units/250 ml 25,000 units in 250 ml IV PER PROTOCOL
Weight to be used for heparin protocol in kilograms (kg):: 63.7
Protocol:: Cardiac Tx/Acute Coronary
PTT Goal Range to be used:: PTT 73 to 111 seconds
Order type:: Initial
INITIAL Infusion Dose (UNITS/KG/hr) & then follow protocol:: 12 units/kg/hr
Infusion Dose in UNITS/hr & then follow protocol (UNITS/hr):: 750
INFUSION RATE in mL/hr & then follow protocol (mL/hr):: 7.5
PTT less than or equal to 64 seconds:: Increase rate by 200 units/hr (+ 2 mL/hr)
PTT 64.1 to 72.9 seconds:: Increase rate by 100 units/hr (+ 1 mL/hr)
PTT 73 to 111 seconds:: Target Range. No change in rate.
PTT 111.1 to 130.9 seconds:: Decrease rate by 100 units/hr (- 1 mL/hr)
PTT 131 to 199.9 seconds:: HOLD for 1 hr. Then decrease rate by 200 units/hr (- 2 mL/hr)
PTT greater than or equal to 200 seconds:: HOLD for 2 hrs & Notify Provider. Then decrease by 200 units/hr (-
2 mL/hr)
Lab follow-up:: Each change, PTT q6h until 2 consecutive are therapeutic. Then PTT
daily.
08/08/24 12:21
Amiodarone [Pacerone] 200 mg PO BID
Metoprolol Xl [Toprol Xl] 100 mg PO DAILY
Spironolactone [Aldactone] 25 mg PO DAILY
08/08/24 12:30
Sacubitril 97/Valsartan 103 [Entresto 97 mg/103 mg] 1 tab PO BID
08/10/24 06:00
Complete Blood Count/No Diff Q2D
Comment: Notify MD if platelet count is <130,000 or decreases by 50% from baseline
08/12/24 06:00
Complete Blood Count/No Diff Q2D
Comment: Notify MD if platelet count is <130,000 or decreases by 50% from baseline
08/14/24 06:00
Complete Blood Count/No Diff Q2D
Comment: Notify MD if platelet count is <130,000 or decreases by 50% from baseline
08/16/24 06:00
Complete Blood Count/No Diff Q2D
Comment: Notify MD if platelet count is <130,000 or decreases by 50% from baseline
08/18/24 06:00
Complete Blood Count/No Diff Q2D
Comment: Notify MD if platelet count is <130,000 or decreases by 50% from baseline
08/20/24 06:00
Complete Blood Count/No Diff Q2D
Comment: Notify MD if platelet count is <130,000 or decreases by 50% from baseline
08/22/24 06:00
Complete Blood Count/No Diff Q2D
Comment: Notify MD if platelet count is <130,000 or decreases by 50% from baseline
08/24/24 06:00
Complete Blood Count/No Diff Q2D
Comment: Notify MD if platelet count is <130,000 or decreases by 50% from baseline
Abnormal Lab Results
08/08/24 08/08/24
09:23
WBC 16.6 H 10^3/uL
(4.8-10.8)
MCH 32.1 H pg
(27.0-31.0)
Abs Immat Gran (auto) 0.1 H 10^3/uL
(0-0.05)
Absolute Neuts (auto) 13.5 H 10^3/uL
(1.4-6.5)
Absolute Monos (auto) 0.7 H 10^3/uL
(0.1-0.6)
Neutrophils % 81.4 H %
(42.2-75.2)
Lymphocytes % 13.3 L %
(20.5-51.1)
Sodium 146 H mmol/L
(135-145)
Chloride 108 H mmol/L
(98-107)
Carbon Dioxide 17 L mmol/L
(22-30)
Glucose 119 H mg/dl
(70-99)
Troponin I 0.213 H* ng/ml 0.735 H* D ng/ml
08/08/24 06:22
08/08/24 06:22
Vital Signs
Initial and Last Documented VS:
Initial Vital Signs
Temp
97.5 F
08/08/24 05:16
Last Documented Vital Signs
Temp Pulse Resp BP Pulse Ox
97.5 F 82 21 126/86 90
08/08/24 05:21 08/08/24 11:30 08/08/24 11:30 08/08/24 11:00 08/08/24 11:30
<Suniat Sen MD - Last Filed: 08/08/24 08:09>
Orders/Labs/Results
Orders:
Orders
08/08/24
Electrocardiogram (*1) Stat
Reason for Study: Chest Pain
Comment: DONE
08/08/24 06:20
IV Insert/Care/Rem.- Treatment PRN
O2 Therapy [RESP] Urgent
Titrate/Wean O2 to maintain O2 sat greater than (%): 90
Special Instructions: Maintain sats >/=90%
08/08/24 06:22
Complete Blood Count/With Diff Urgent
Comprehensive Metabolic Panel Urgent
Lipase Urgent
Troponin I Urgent
08/08/24 06:35
Ondansetron Injectable [Zofran] 4 mg .ROUTE .[facility] ONE
08/08/24 06:36
Ondansetron Injectable [Zofran] 4 mg IV NOW STA
08/08/24 07:03
Diphenhydramine [Benadryl] 25 mg IV NOW STA
Prochlorperazine [Compazine] 10 mg IV NOW STA
08/08/24 07:28
Mag Hydrox/Al Hydrox/Simeth [Maalox] 30 ml Phenobarb/Hyoscy/Atropine/Scop [] 10 ml PO NOW
08/08/24 07:29
Pantoprazole [Protonix IV] 40 mg IV NOW STA
08/08/24 07:36
Mag Hydrox/Al Hydrox/Simeth [Maalox] 30 ml .ROUTE .STK-MED ONE
Phenobarb/Hyoscy/Atropine/Scop [] 10 ml .ROUTE .STK-MED ONE
08/08/24 07:50
ECG [Electrocardiogram (*1)] Urgent
Reason for Study: Chest Pain
EKG- Treatment ONCE
08/08/24 07:53
Add On- LAB Urgent
Tests Added?: lipase
08/08/24 08:01
Morphine Sulfate 4 mg IV NOW STA
08/08/24 08:02
Add On- LAB Urgent
Tests Added?: lipase
08/08/24 08:26
Echo 2D MMode Color/Doppler Routine
Reason for Study: Chest pain, abnormal troponin
08/08/24 08:53
CXR2 [CR Chest - 2 Views ] Urgent
Comment:
Reason For Exam: Hypoxia, shortness of breath, CP
08/08/24 09:23
COVID-19 Antigen Routine
Source: Nasal Swab
Troponin I Routine
08/08/24 11:49
Admit/Transfer Patient As Directed
Co-Sign Provider:
Level of Care: Inpatient admission
Assign to:: IVU
Physician / Group: Mirsky/Hospitalist
Diagnosis: Epigastric Pain
Reason for Hospitalization: Epigastric Pain
Coronary Artery Disease
Elevated Troponin
Expected length of stay greater than two midnights?: Yes
ELOS- Estimated Length of Stay in days: 5
I certify the patient meets the requirements for IP care: Yes
PRN Pain Medication Management As Directed
May give lesser potent ordered pain med per pt: Yes
preference::
Protocol:: Medication orders for pain may be administered in a
manner that supports deferring to patient preference
when the pt is:
- Requesting an ordered lesser potent pain medication.
Least to most potent pain medications are defined
as: acetaminophen < NSAID < tramadol < opioids
(morphine, oxycodone, hydromorphone).
- Requesting a lesser dose of the same medication IF
ORDERED.
- Requesting a less intrusive route of administration
if both routes are prescribed by the provider (PO <
IV).
08/08/24 11:56
Code Status As Directed
Resuscitation Status: Full Code
08/08/24 12:09
PTT Urgent
Comment: Obtain baseline before beginning heparin infusion if not already collected
Heparin Protocol- PTT Orders As Directed
PTT per Heparin protocol: -Obtain CBC and baseline PTT - if not already collected.
-Obtain PTT 6 hours from start of infusion. Then, every 6 hours until 2 consecutive
PTT's are therapeutic. Then, PTT Daily.
-With each rate change, obtain PTT every 6 hours until 2 consecutive PTT's are
therapeutic. Then, PTT Daily.
Notify MD As Directed
Notify physician if: PTT is greater than or equal to 200.
08/08/24 12:15
Heparin 51087 Units/250 ml 25,000 units in 250 ml IV PER PROTOCOL
Weight to be used for heparin protocol in kilograms (kg):: 63.7
Protocol:: Cardiac Tx/Acute Coronary
PTT Goal Range to be used:: PTT 73 to 111 seconds
Order type:: Initial
INITIAL Infusion Dose (UNITS/KG/hr) & then follow protocol:: 12 units/kg/hr
Infusion Dose in UNITS/hr & then follow protocol (UNITS/hr):: 750
INFUSION RATE in mL/hr & then follow protocol (mL/hr):: 7.5
PTT less than or equal to 64 seconds:: Increase rate by 200 units/hr (+ 2 mL/hr)
PTT 64.1 to 72.9 seconds:: Increase rate by 100 units/hr (+ 1 mL/hr)
PTT 73 to 111 seconds:: Target Range. No change in rate.
PTT 111.1 to 130.9 seconds:: Decrease rate by 100 units/hr (- 1 mL/hr)
PTT 131 to 199.9 seconds:: HOLD for 1 hr. Then decrease rate by 200 units/hr (- 2 mL/hr)
PTT greater than or equal to 200 seconds:: HOLD for 2 hrs & Notify Provider. Then decrease by 200 units/hr (-
2 mL/hr)
Lab follow-up:: Each change, PTT q6h until 2 consecutive are therapeutic. Then PTT
daily.
08/08/24 12:21
Amiodarone [Pacerone] 200 mg PO BID
Metoprolol Xl [Toprol Xl] 100 mg PO DAILY
Spironolactone [Aldactone] 25 mg PO DAILY
08/08/24 12:30
Sacubitril 97/Valsartan 103 [Entresto 97 mg/103 mg] 1 tab PO BID
08/10/24 06:00
Complete Blood Count/No Diff Q2D
Comment: Notify MD if platelet count is <130,000 or decreases by 50% from baseline
08/12/24 06:00
Complete Blood Count/No Diff Q2D
Comment: Notify MD if platelet count is <130,000 or decreases by 50% from baseline
08/14/24 06:00
Complete Blood Count/No Diff Q2D
Comment: Notify MD if platelet count is <130,000 or decreases by 50% from baseline
08/16/24 06:00
Complete Blood Count/No Diff Q2D
Comment: Notify MD if platelet count is <130,000 or decreases by 50% from baseline
08/18/24 06:00
Complete Blood Count/No Diff Q2D
Comment: Notify MD if platelet count is <130,000 or decreases by 50% from baseline
08/20/24 06:00
Complete Blood Count/No Diff Q2D
Comment: Notify MD if platelet count is <130,000 or decreases by 50% from baseline
08/22/24 06:00
Complete Blood Count/No Diff Q2D
Comment: Notify MD if platelet count is <130,000 or decreases by 50% from baseline
08/24/24 06:00
Complete Blood Count/No Diff Q2D
Comment: Notify MD if platelet count is <130,000 or decreases by 50% from baseline
Abnormal Lab Results
08/08/24 08/08/24
09:23
WBC 16.6 H 10^3/uL
(4.8-10.8)
MCH 32.1 H pg
(27.0-31.0)
Abs Immat Gran (auto) 0.1 H 10^3/uL
(0-0.05)
Absolute Neuts (auto) 13.5 H 10^3/uL
(1.4-6.5)
Absolute Monos (auto) 0.7 H 10^3/uL
(0.1-0.6)
Neutrophils % 81.4 H %
(42.2-75.2)
Lymphocytes % 13.3 L %
(20.5-51.1)
Sodium 146 H mmol/L
(135-145)
Chloride 108 H mmol/L
(98-107)
Carbon Dioxide 17 L mmol/L
(22-30)
Glucose 119 H mg/dl
(70-99)
Troponin I 0.213 H* ng/ml 0.735 H* D ng/ml
08/08/24 06:22
08/08/24 06:22
Vital Signs
Initial and Last Documented VS:
Initial Vital Signs
Temp
97.5 F
08/08/24 05:16
Last Documented Vital Signs
Temp Pulse Resp BP Pulse Ox
97.5 F 82 21 126/86 90
08/08/24 05:21 08/08/24 11:30 08/08/24 11:30 08/08/24 11:00 08/08/24 11:30
<URIEL Rizvi - Last Filed: 08/08/24 12:52>
MDM/Problems Addressed
MDM/Problems Addressed:
[id number]:Patient is a 63-year-old female with past medical history of bypass surgery gastritis and other medical issues presents with intermittent nausea vomiting abdominal pain and left-sided chest pain for the past several days. She primary complains
of epigastric pain and is tender to the epigastric area however cardiac troponin is elevated at 0.213. No acute elevation however some ST depression. Patient was initially treated with antiemetics and GI cocktail. ED physician evaluated patient
bedside will discuss with cardiology. At this time pt denies chest pain but c/o of epigastric pain
PT was medicated for pain . Cardiology aware will see pt and admit to hospitaist service.
Pt was eval by DR Rider who does not feel that pt's sympoms are cardiac in nature given her upper abdominal pain
Pt was evaluated by hospitalist. Cardiac troponin did increase I did notify cardiology. Patient was ordered heparin drip by cardiology
<URIEL Rizvi - Last Filed: 08/08/24 12:52>
*Radiology
Radiology exam reviewed: radiology read reviewed
*Pulse Oximetry
Patient hypoxic: no
*EKG
Interpreted by ED Provider?: Yes
Interpretation: abnormal
Heart Rate: 67
Rate: normal
Ischemia: T-wave inversion
*Critical Care Note
Total Time (30-74mins, 75-104mins- exclusive of procedures): Not Applicable
<URIEL Rizvi - Last Filed: 08/08/24 12:52>
Patient Management
Discussion with other providers: Equipment Operation Instructor (cardiology )
ED Attending Note
<URIEL Rizvi - Last Filed: 08/08/24 12:52>
-
Portions of this chart may have been created with voice recognition software.� Occasional wrong word or��sound alike� substitutions may have occurred due to the inherent limitations of voice recognition software.
<Sunita Sen MD - Last Filed: 08/08/24 08:09>
ED Attending Note
Patient seen and examined by attending physician: Yes
I performed the substantive portion of visit, reviewed & personally made and approve the management plan that is documented in note by myself or EVELINE.: Yes
ED Attending Note:
Patient arrives with complaints of several hours of epigastric abdominal pain radiating into the left chest. Patient reports it is associated with nausea and vomiting. Patient has a history of gastritis. Patient reports she is still having mild
to moderate epigastric pain at this time. On exam, patient looks slightly anxious. Heart sounds regular. Lungs are clear. Abdomen is completely soft throughout and I cannot elicit any areas of tenderness. EKG shows slightly more pronounced ST
depressions in lateral leads and troponin is elevated. This is concerning to me. Second EKG looks similar to first EKG. There is no sign of STEMI at this time. Patient is already on Eliquis for A-fib so I am hesitant to give her aspirin or start
heparin before speaking to cardiology. I did make cardiology aware of patient's condition. For now, patient will be given some morphine for discomfort
Discharge Plan
Departure
Patient Disposition: Admit
Date of Disposition: 08/08/24
Time of Disposition: 09:03
Admit to: Telemetry
Admit to doctor: hospitaist
Presentation/result/management discussed w/ accepting MD/DO: Hospitalist
Patient with high blood pressure during this ER visit?: No
Condition: Fair
Covid-19: Not Applicable
Discharge Problem:
Non-ST elevated myocardial infarction (non-STEMI)
Interventions
Interventions:
*Risk Screen - Suicide Last Done: 08/08/24 05:16
*General Assessment Last Done: 08/08/24 05:21
*Neglect/Abuse Screening Last Done: 08/08/24 05:21
ED- Fall Risk Assessment Last Done: 08/08/24 07:25
*ED COVID-19 Vaccine History Last Done: 08/08/24 07:13
ED- Cardiac Assessment Last Done: 08/08/24 06:47
[2024-08-08] MEDS: MAALOX 40 PO (07:37)
[2024-08-08] MEDS: PROTONIX IV 40 MG IV (07:37)
[2024-08-08 07:38] LABS: Troponin I 0.213 ng/ml
[2024-08-08] MEDS: MORPHINE SULFATE 4 MG IV (08:05)
[2024-08-08 08:51] LABS: Lipase 66 U/L (23-300)
--- NOTE | 2024-08-08 08:54 | CON.CAR ---
Addendum entered and electronically signed by Koby Rider MD 08/08/24 10:55:
I saw and examined the patient.
The GLEASON GEAR GENERATOR's note was reviewed and I agree with the note.
Comment: 63-year-old female (known to Dr. Gonzalez, her primary low voltage technician), with NSTEMI (peak troponin 10.2) status post CABG x 4, recovered ischemic cardiomyopathy, hypertension, dyslipidemia, paroxysmal atrial fibrillation (amiodarone,
apixaban), ADHD, former smoker, and prior alcohol misuse presented to the emergency department via EMS with multiple complaints. She reported nausea, vomiting, diarrhea, chest pain, shortness of breath, chills without fever, and systemic body
aches.
It is not clear that this is ACS/NSTEMI at this time, her main complaint is GI related and her neck discomfort was in setting of retching.
- trend trop
- heparin gtt in case need to go to director of cath lab
Original Note:
Consultation
Consultation Request
Date/Time Consultation Requested: 08/08/2024 07:30
Date/Time Consultation Performed: 08/08/2024 08:30
Requesting Provider: URIEL Patton
Performing Provider: URIEL Braswell for Dr. Rider
Reason for Consultation: Abnormal troponin
Medical History
-
Chief Complaint: nausea/vomiting/epigastric pain
History of Present Illness:
Saige Alva is a 63-year-old female (known to Dr. Gonzalez, her primary low voltage technician), with NSTEMI (peak troponin 10.2) status post CABG x 4, recovered ischemic cardiomyopathy, hypertension, dyslipidemia, paroxysmal atrial fibrillation
(amiodarone, apixaban), ADHD, former smoker, and prior alcohol misuse presented to the emergency department via EMS with multiple complaints. She reported nausea, vomiting, diarrhea, chest pain, shortness of breath, chills without fever, and
systemic body aches. Her nausea and vomiting is reminiscent of the last time she had gastritis. She denies coffee-ground and bloody emesis. She denies melena. Regarding her chest pain, it is epigastric. It feels like a pressure. It does not
radiate. She does report neck discomfort which she had with prior NSTEMI. She has body aches. Her troponin was found to be 0.213. EKG with lateral T wave inversion.
Past Medical History
Past Medical History: Arrhythmias (Paroxysmal atrial fibrillation [on amiodarone and apixaban]), CAD (CABG), CHF (ICM [resolved]), HTN, Hypercholesterolemia and Other
Past Surgical History: Cardiac (CABG) and Orthopedic
Social History
Tobacco: Former Smoker
Alcohol: Former
Drug: Marijuana
Family History
Family History: Reviewed & Not Pertinent
Allergies / Home Medications
Allergy/AdvReac Type Severity Reaction Status Date / Time
mold Allergy Swelling/swollen Verified 05/25/24 17:46
joints
Penicillins Allergy Anaphylaxis Verified 05/24/24 13:05
at 9 years
old
requiring
intubation
�Medication �Instructions �Recorded �Confirmed �Type
cholecalciferol (vitamin D3) 25 1,000 unit PO DAILY Supplement 11/01/23 05/24/24 History
mcg (1,000 unit) capsule (Vitamin
D3)
gabapentin 300 mg capsule 600 mg PO HS pain/muscle 11/01/23 05/24/24 History
methocarbamol 500 mg tablet 500 mg PO TIDPRN PRN NECK SPASMS 11/01/23 05/24/24 History
acetaminophen 325 mg tablet 650 mg (2 x 325 mg) PO Q4HPRN PRN 11/09/23 05/24/24 Rx
mild pain,headache,temp >101F #0
tabs
clopidogrel 75 mg tablet 75 mg PO DAILY Heart 11/09/23 05/24/24 Rx
disease/condition #30 tabs
dapagliflozin propanediol 10 mg 10 mg PO DAILY Heart Failure #30 11/09/23 05/24/24 Rx
tablet (Farxiga) tabs
metoprolol succinate 100 mg 100 mg PO DAILY Heart 11/09/23 05/24/24 Rx
tablet,extended release 24 hr disease/condition #30 tabs
pantoprazole 40 mg tablet,delayed 40 mg PO DAILY Gastrointestinal 11/09/23 05/24/24 Rx
release issue #30 tabs
apixaban 5 mg tablet (Eliquis) 5 mg PO BID Blood Clot 01/30/24 05/24/24 History
Prevention/Tx
lorazepam 1 mg tablet 1 mg PO HSPRN PRN anxiety/sleep 01/30/24 05/24/24 History
spironolactone 25 mg tablet 12.5 mg PO DAILY Fluid 01/30/24 05/24/24 History
Retention/Swelling
amiodarone 200 mg tablet 200 mg PO DAILY Arrhythmia 05/22/24 05/24/24 History
evolocumab 140 mg/mL subcutaneous 140 mg SC Q2W High Cholesterol 05/22/24 05/24/24 History
pen injector (Jorge Luis Samano)
ezetimibe 10 mg tablet (Zetia) 10 mg PO DAILY High Cholesterol 05/22/24 05/24/24 History
rosuvastatin 40 mg tablet 40 mg PO DAILY High Cholesterol 05/22/24 05/24/24 History
semaglutide (weight loss) 0.5 0.75 mg SC TH Weight loss 05/22/24 05/24/24 History
mg/0.5 mL subcutaneous pen
injector (Elizabeth)
sacubitril 97 mg-valsartan 103 mg 1 tab PO BID Heart Failure 05/24/24 05/24/24 History
tablet (Entresto)
Review of Systems
-
History Source: Patient
All other systems: Negative unless noted
Constitutional: Fatigue and Chills
Respiratory: Trouble Breathing
Cardiac: Chest Pain
Abdomen/GI: Nausea, Vomiting and Diarrhea
: No Symptoms
Musculoskeletal: Muscle Pain
Skin: No Symptoms
Neurological: No Symptoms
Endocrine: No Symptoms
Hematologic/Lymphatic: No Symptoms
Physical Exam
Vital Signs
Temp Pulse Resp BP Pulse Ox
97.5 F 82 23 118/83 91
08/08/24 05:21 08/08/24 08:30 08/08/24 08:30 08/08/24 08:07 08/08/24 08:07
Lab Results
08/08/24 06:22
08/08/24 06:22
Troponin I 0.213 ng/ml H* 08/08/24 06:22
Physical Exam
General: Well Developed, Well Nourished, No Apparent Distress and Comfortable
HEENT: Normocephalic and Anicteric
Respiratory: Clear and Non Labored Respirations
Cardiac: S1/S2 and Regular Rhythm; Negative Peripheral Edema
Breast: Deferred by me
GI: Soft, Non Tender, Non Distended and Normal Bowel Sounds
Rectal: Deferred by Provider
Genito-urinary: No Costovertebral Tender
Musculoskeletal: No Clubbing, No Cyanosis and No Edema
Skin: Warm and Dry
Neuro: AO x 3
Hematologic/Lymphatic: No Lymphadenopathy
Psych: Calm
Impression / Plan
-
BACKGROUND: 63F with CAD (NSTEMI & CABG 10/2023), ICM (recovered), HTN, HLD, former smoker, & former ETOH misuse (sobriety > 20 years) presented with N/V/D, body aches, abdominal pain, chest pain, and chills
Stacker Tender: Dr. Gonzalez
Acute hypoxic respiratory insufficiency
-Requiring 5 L nasal cannula
-CXR ordered, COVID-19 pending
-DDx: PNA (leukocytosis), doubtful of PE as she denies missed doses of apixaban
Chest pain
-Prior CP was gastritis (04/2024) currently CP free
-In the setting of acute GI distress
Abnormal troponin, type unknown
-Trend to peak
-Echocardiogram
-Transition apixaban to heparin drip
CAD
-Continue aspirin and BB
Ischemic cardiomyopathy, recovered - chronic
-GDMT as tolerated
-Beta-leonora: Metoprolol succinate
-MRA: Spironolactone
-ACEI/ARB: Entresto
-SGLT2: Farxiga
-Trend daily weight, I/O
Paroxysmal atrial fibrillation
-In sinus rhythm on amiodarone
-Oral Anticoagulation: Apixaban 5 mg twice daily, she denies missed doses and abnormal bleeding
-FOO2AB3-WRLf: Score at least 5 (Heart failure, HTN, Vascular disease, age 65-74, female gender)
Abdominal pain, per primary
Nausea/vomiting/diarrhea - per primary
Hypertension, stable
Dyslipidemia, on rosuvastatin, Zetia, and Repatha
Data Reviewed
-
EKG: Report Reviewed by me (EKG with lateral T wave inversion)
Medical Tests (Nuc Med, Echo etc): Report Reviewed by me (Prior echocardiogram as above)
Labs: Labs Reviewed by me
Old Records: Reviewed
[2024-08-08 10:10] LABS: Troponin I 0.735 ng/ml
[2024-08-08 10:31] LABS: COVID-19 Antigen Negative (Negative)
[2024-08-08] MEDS: PACERONE 200 MG PO (12:35)
[2024-08-08] MEDS: TOPROL XL 100 MG PO (12:35)
[2024-08-08] MEDS: ALDACTONE 25 MG PO (12:35)
[2024-08-08] MEDS: LOW STRENGTH ASPIRIN 324 MG PO (13:03)
[2024-08-08] MEDS: ENTRESTO 97 MG/103 MG 1 TAB PO (13:03)
[2024-08-08] MEDS: HEPARIN 25000 UNITS/250 ML IV (13:05)
[2024-08-08 13:19] LABS: APTT 35.5 Sec (23.4-35.0)
[2024-08-08] MEDS: LASIX 40 MG IV (13:24)
[2024-08-08 13:57] LABS: B.E. -2.9 mmol/L; HCO3 20.9 mmol/L (21-28); PCO2 33 mmHg (32-35); PO2 60 mmHg (83-108); pH 7.41 (7.35-7.45)
--- NOTE | 2024-08-08 14:01 | CON.INTV ---
Consultation
Consultation Request
Date/Time Consultation Requested: 08/08/2024-4 PM
Date/Time Consultation Performed: 08/08/2024-4 PM
Requesting Provider: Hospitalist
Performing Provider: Dr. Bains
Reason for Consultation: Respiratory failure/critical care management
Medical History
-
Chief Complaint: Shortness of breath
History of Present Illness:
63-year-old female with underlying CAD/CABG, recovered ischemic cardiomyopathy, hypertension, hyperlipidemia, PAF on amiodarone and Eliquis who is a former smoker who presented with shortness of breath, chest pain, vomiting, diarrhea and systemic
body aches found to have respiratory failure and went to cardiac Return To Factory Clerk emergently-survey research analyst consulted for respiratory failure/critical care management 08/08/2024. Patient is currently on nonrebreather in no distress. She is lying nearly flat.
She did not like high flow oxygen. She has some epigastric discomfort but no overt chest pain, pleurisy, chest congestion, productive cough, abdominal pain, nausea, or weakness. She does not complain of increased leg swelling.
Past Medical History
Past Medical History: None (Hypertension. Hyperlipidemia. CAD/CABG. Recovered ischemic cardiomyopathy. PAF. Chronic amiodarone. Chronic anticoagulation-Eliquis. ADHD. Former smoker. Prior alcohol misuse. Gastritis.)
Social History
Tobacco: Former Smoker (Quit within the last year)
Drug: Marijuana
Living: With Family
Occupational Exposures: No known asbestos exposure
Environmental Exposures: No known tuberculosis exposure
Family History
Family History: Reviewed & Not Pertinent (Early CAD-mother) and Other (Hypertension hyperlipidemia)
Allergies / Home Medications
Allergies
Allergy/AdvReac Type Severity Reaction Status Date / Time
mold Allergy Swelling/swollen Verified 05/25/24 17:46
joints
Penicillins Allergy Anaphylaxis Verified 05/24/24 13:05
at 9 years
old
requiring
intubation
Home Medications
�Medication �Instructions �Recorded �Confirmed �Last Taken �Type
cholecalciferol (vitamin D3) 25 1,000 unit PO DAILY Supplement 11/01/23 08/08/24 05/23/24 History
mcg (1,000 unit) capsule (Vitamin
D3)
gabapentin 300 mg capsule 300 mg PO BID pain/muscle 11/01/23 08/08/24 11/01/23 History
acetaminophen 325 mg tablet 650 mg (2 x 325 mg) PO Q4HPRN PRN 11/09/23 08/08/24 Unknown Rx
mild pain,headache,temp >101F #0
tabs
clopidogrel 75 mg tablet 75 mg PO DAILY Heart 11/09/23 08/08/24 05/23/24 Rx
disease/condition #30 tabs
metoprolol succinate 100 mg 100 mg PO DAILY Heart 11/09/23 08/08/24 05/23/24 Rx
tablet,extended release 24 hr disease/condition #30 tabs
apixaban 5 mg tablet (Eliquis) 5 mg PO BID Blood Clot 01/30/24 08/08/24 05/23/24 History
Prevention/Tx
lorazepam 1 mg tablet 1 mg PO HSPRN PRN anxiety/sleep 01/30/24 08/08/24 Unknown History
spironolactone 25 mg tablet 25 mg PO DAILY Fluid 01/30/24 08/08/24 05/23/24 History
Retention/Swelling
amiodarone 200 mg tablet 200 mg PO BID Arrhythmia 05/22/24 08/08/24 05/23/24 History
evolocumab 140 mg/mL subcutaneous 140 mg SC Q2W High Cholesterol 05/22/24 08/08/24 05/13/24 10:00 History
pen injector (Repatha SureClick)
ezetimibe 10 mg tablet (Zetia) 10 mg PO QPM High Cholesterol 05/22/24 08/08/24 05/23/24 History
rosuvastatin 40 mg tablet 40 mg PO QPM High Cholesterol 05/22/24 08/08/24 05/23/24 History
sacubitril 97 mg-valsartan 103 mg 1 tab PO BID Heart Failure 05/24/24 08/08/24 05/23/24 History
tablet (Entresto)
dapagliflozin propanediol 10 mg 10 mg PO QPM Heart Failure 08/08/24 08/08/24 Unknown History
tablet (Farxiga)
omeprazole 40 mg capsule,delayed 40 mg PO BID 08/08/24 08/08/24 Unknown History
release
semaglutide (weight loss) 1.7 1.7 mg SC MO 08/08/24 08/08/24 Unknown History
mg/0.75 mL subcutaneous pen
injector (Wegovy)
Review of Systems
-
Unable to Obtain full review of systems at this time due to: Other (Per HPI)
Vitals / Labs / Diagnostic Testing
Vital Signs
Temp Pulse Resp BP Pulse Ox
97.5 F 92 29 111/75 93
08/08/24 05:21 08/08/24 13:45 08/08/24 13:45 08/08/24 13:04 08/08/24 13:45
Lab Data
08/08/24 06:22
08/08/24 06:22
Laboratory Results
08/08/24 08/08/24
12:55 13:40
APTT 35.5 H
pH 7.41
pCO2 33
pO2 60 L
HCO3 20.9 L
O2 Delivery Level
Diagnostic Testing:
Physical Exam
-
Exam:
Well-nourished and well-developed in no apparent distress
HEENT-atraumatic, normocephalic
Neck-supple, no JVD, no bruit
Heart-regular rate and rhythm-no murmurs, rubs or gallops
Chest with crackles posteriorly [facility] up and no wheezes
Back without tenderness
Abdomen-soft, nontender, nondistended, no hepatosplenomegaly
Extremities-no cyanosis, clubbing, lower extremity edema
Integument-intact, no rashes, lesions or ecchymosis
Neurology-alert and oriented, nonfocal motor and sensory exam
Assessment
-
63-year-old female with underlying CAD/CABG, recovered ischemic cardiomyopathy, hypertension, hyperlipidemia, PAF on amiodarone and Eliquis who is a former smoker who presented with shortness of breath, chest pain, vomiting, diarrhea and systemic
body aches found to have respiratory failure and may be going to cardiac Return To Factory Clerk emergently-survey research analyst consulted for respiratory failure/critical care management 08/08/2024.
Respiratory failure-acute hypoxemic
CHF--reduced EF-15-20%
Chest pain with elevated troponin-rising 0.2 then 0.7 and now 1.5
CAD/history of CABG
Abdominal pain/nausea/vomiting/diarrhea
Leukocytosis-WBC 16.6
Mild hypernatremia
Metabolic acidosis
Hyperglycemia
Conditions present prior to admission:
Recent hospitalization 11/09/2023-CABG x 4, status post non-ST segment elevation myocardial infarction
Recent hospitalization 05/26/2024-admitted with persistent nausea and vomiting, initially signed out AMA and then returned and underwent EGD which revealed gastritis
Hypertension.
Hyperlipidemia.
CAD/CABG.
Recovered ischemic cardiomyopathy.
PAF.
Chronic amiodarone.
Chronic anticoagulation-Eliquis.
ADHD.
Former smoker.
Prior alcohol misuse.
Gastritis.
Obesity
Left shoulder surgery
Plan
Patient transferred to medical intensive care unit
Supplemental oxygen as needed-currently on nonrebreather
High flow oxygen if needed-tried briefly-was uncomfortable with the amount of air going up into her 'sinuses'
Noninvasive ventilation if needed
Intubated mechanically ventilated if necessary-full code
Aspiration precautions
Nebulizers if needed-currently not bronchospastic
Patient can lie flat on 100% nonrebreather, no respiratory distress and 96% saturation-currently believe she could tolerate cardiac catheterization with conscious sedation
Cardiology evaluation ongoing
Echocardiogram 08/08/2024 markedly abnormal with EF now 15-20%, intermediate diastolic dysfunction PA systolic 65, significant reduction from May 23, 2024
Status post cardiac catheterization 08/08/2024
Diuresis as tolerated
Inotropes and pressors as needed
Monitor renal function, electrolytes, intake/output, lower extremity edema and weight
Replace electrolytes as needed
Heparin drip initiated
Amiodarone continues-currently on 200 mg twice daily-monitor for pulmonary toxicity
Infectious disease consultation noted
Follow leukocytosis
Monitor off antibiotics-no clear signs of active infection
Monitor renal function
Replace electrolytes
Reverse acidosis
Bicarb if needed
Monitor blood sugar
Insulin supplementation as needed
DVT prophylaxis-on heparin drip
GI prophylaxis-on pantoprazole
Nutrition once stabilized
Early mobilization
Outpatient pulmonary evaluation eventually-full PFTs, ongoing smoking cessation counseling, screen for ETHAN
Critical care statement: A total of 55 minutes of critical care time was provided for this patient today. This includes management of unstable vital signs, evaluation of the patient at bedside, reviewing the patient's pertinent medical records
including radiographs, pressor management, respiratory failure management, microbiology, laboratory evaluations, and discussion with primary team, consultants, pharmacy, nutrition, physical therapy, case management, charge nurse, critical care
nursing, and respiratory therapy.
Diagnostic data:
Chest x-ray 10/30/2023-stable mild bibasilar atelectasis
Chest x-ray 08/08/2024-no findings to suggest pneumonia, mild CHF
CT chest 11/02/2023-lungs are clear
CT abdomen and pelvis 01/30/2024-no acute process in the abdomen or pelvis, diverticulosis, cholelithiasis, lower chest AP dimension consistent with hyper aeration of COPD, minimal scarring at both lung bases
CT abdomen and pelvis 05/24/2024-cholelithiasis, diverticulosis, lung bases are clear
Spirometry 11/02/2023-FEV1 1.76-76%, FVC 2.3-77%
Data Reviewed
-
PFT: Report reviewed by me
EKG: Report reviewed by me
Radiology: Image personally visualized and interpreted and Report reviewed by me
CT Scan: Report reviewed by me
Medical Tests (Nuc Med, Echo etc): Report reviewed by me
Labs: Labs reviewed by me
Old Records: Reviewed
Critical Care Time (in minutes): 55
--- NOTE | 2024-08-08 14:33 | CON.ID ---
Consultation
-
Date/Time Consultation Requested: 08/08/2024 1402
Date/Time Consultation Performed: 08/08/2024 1433
Requesting Provider: Dr. Benavidez
Performing Provider: Dr. Starkey
Reason for Consultation: Leukocytosis
Chief Complaint / Past History
History of Present Illness
Saige Alva is a 63-year-old female being evaluated at the request of Dr. Benavidez in regards to leukocytosis. History is obtained from chart review, along with patient interview
The patient has an underlying history of CAD with history of OH and CABG performed in October 2023. Review of records indicate that the patient was admitted to the hospital in late April with nausea and vomiting. Ultimately EGD revealed the
presence of gastritis.
The patient presents back to the emergency room today with epigastric discomfort. She notes that the pain has been present on and off for the past few days. She notes that it is worse, the pain is 8 out of 10. She admits to nausea and vomiting,
and also some episodes of loose stool. She denies any fevers, but does note some chills when she was having the nausea and vomiting. No sick contacts.
Workup in the emergency room revealed white count of 16.6, and Infectious Diseases is asked to comment on the need for antibiotic therapy.
Past History
Additional Past Medical History:
CAD; Hx OH
Ischemic cardiomyopathy
HTN
Dyslipidemia
Osteoporosis
ADHD
Additional Past Surgical History:
CABG (October 2023)
Appendectomy
Left shoulder surgery
Allergy History:
mold Allergy (Verified 05/25/24 17:46)
Swelling/swollen joints
Penicillins Allergy (Verified 05/24/24 13:05)
Anaphylaxis at 9 years old requiring intubation
Medications Reviewed: Yes
Current Antibiotics:
None
Social History
Tobacco: Former Smoker
Alcohol: None
Drug: Marijuana
Personal: Single
Living: Alone
Family History
Family History: Not Pertinent
Review of Systems
Vital Signs
Temp Pulse Resp BP Pulse Ox
97.5 F 86 26 100/69 92
08/08/24 05:21 08/08/24 14:00 08/08/24 14:00 08/08/24 14:00 08/08/24 14:22
Physical Exam
Physical Exam
Constitutional: No Acute Distress, Comfortable, Acutely Ill and Non-toxic
Eyes: Pupils Equal, Pupils Round, No Conjunctival Hemorrhage and Sclera Anicteric
Oral: No Thrush and No Ulcers
Cardiovascular: S1/S2; Negative S3/S4 or Murmur
Pulmonary: Clear; Negative Wheezes, Rales or Rhonchi
Gastrointestinal: Soft, Non Tender and Non Distended
Extremities: Edema; Negative Cyanosis or Erythema
Skin: Negative Rash or Jaundice
Neurological: Awake and Alert
Psychological: Calm
Lab / Diagnostic Study Results
08/08/24 06:22
08/08/24 06:22
Abs Immat Gran (auto) 0.1 10^3/uL (0-0.05) H 08/08/24 06:22
Absolute Neuts (auto) 13.5 10^3/uL (1.4-6.5) H 08/08/24 06:22
Absolute Lymphs (auto) 2.2 10^3/uL (1.2-3.4) 08/08/24 06:22
Absolute Monos (auto) 0.7 10^3/uL (0.1-0.6) H 08/08/24 06:22
Absolute Basos (auto) 0.1 10^3/uL (0-0.2) 08/08/24 06:22
Immature Gran % 0.5 % (0-0.5) 08/08/24 06:22
Neutrophils % 81.4 % (42.2-75.2) H 08/08/24 06:22
Lymphocytes % 13.3 % (20.5-51.1) L 08/08/24 06:22
Monocytes % 4.0 % (1.7-9.3) 08/08/24 06:22
Eosinophils % 0.4 % (0-6) 08/08/24 06:22
Basophils % 0.4 % (0-2) 08/08/24 06:22
PT Cancelled 08/08/24 14:02
INR Cancelled 08/08/24 14:02
Microbiology Results
Micro:
08/08/24 12:55 Blood Culture - Pending
Blood/Venous
08/08/24 12:55 Blood Culture - Pending
Blood/Venous
Imaging:
08/08/2024 ECHO (TTE): Normal LV size, with severely reduced systolic function. EF approximately 15 to 20% by visual estimation. No LVH. Normal RV size and function. Moderate tricuspid regurgitation. Mitral annular calcification noted.
Thickened mitral valve leaflets with trace mitral regurgitation. Aortic valve shows trileaflet valve. IVC is of normal size and demonstrates normal respiratory variation. No intracardiac mass or thrombus formation seen. Please see full dictation
for additional detail.
08/08/2024 CXR (2 view): No findings to suggest pneumonia. Sternal wires and left shoulder arthroplasty are noted. Please see full dictation for additional detail. Film personally viewed.
Assessment / Plan
Chest pain/epigastric pain
Nausea/vomiting
Leukocytosis
Hypoxemia
Hyponatremia
Elevated troponin
CAD; Hx OH
Ischemic cardiomyopathy
HTN
Dyslipidemia
Osteoporosis
ADHD
Recommendations:
At present, no evidence of infectious process. Suspect leukocytosis is reactive.
Monitor off antibiotics for now, but will have a low threshold to start should there be clinical decompensation.
Blood cultures have been obtained; will continue to follow.
Monitor white count and temperature curve.
Care Review
Plan reviewed with: Physician (Hospitalist)
--- NOTE | 2024-08-08 14:34 | RESPNOTE ---
Respiratory: patient unable to tolerated high-flow nasal cannula (HFNC) @ 40L 80% SpO2 89%. Returned back to non-rebreather mask SpO2 92-93%. HFNC at bedside stand-by.
[2024-08-08] MEDS: NEURONTIN 300 MG PO ×2 (14:38→19:52)
[2024-08-08] MEDS: VITAMIN D3 (cholecalciferol) 25 MCG PO (14:39)
[2024-08-08] MEDS: PLAVIX 75 MG PO (14:39)
--- NOTE | 2024-08-08 14:39 | W.PN.HOSP.TC ---
Today's Communication/Plan
-
admit ICU
abx as per ID
Blood Cx
hold Eliquis
Assessment / Plan
Assessment / Plan
Nausea/vomiting/diarrhea of unclear etio
Pt on Wegovy, ?correlation
Abn Echocardiogram
discussed with cardio, will be going to medical lab director shortly
Echo: Normal LV size with severely reduced systolic function.
LVEF is approximately 15 to 20% by visual estimation.
Hyperdynamic base with severe hypokinesis of other LV segments.
No LVH. Diastolic function indeterminate.
Normal RV size and function.
Moderate tricuspid regurgitation.
Estimated pulmonary artery systolic pressure at 65 mmHg.
Compared to prior from May 23, 2024, and LVEF is now severely reduced as
described above, previously normal, and estimated PASP is severely elevated.
Trop elevating
0.213-->0.735-->1.510
Hx of CAD
s/p CABG 11/05/2023
Paroxysmal Atrial fibrillation
on Chronic Amiodarone and Eliquis
Leukocytosis
multiple possible etiologies, cardio notes possible SBE and requests ID consult
Hypoxemia
discussed with cardio, requests pt be upgraded from IVU to ICU, will place orders
P:Pt admit ICU
hold Eliquis
plan heart cath
Director Of Residential Services, Cardio, ID, GI consults
Full Code
See dictated note
Anticipated Discharge: > 48 hours
Subjective/Interval History
-
Date of Service: August 08, 2024
Diarrhea, vomiting (retching) and epigastric pain onset Thursday, 08/05
Objective Data
-
Labs:
Laboratory Results
08/08/24 08/08/24 08/08/24
06:22 12:55 13:40
WBC 16.6 H
Hgb 15.0
Hct 43.5
Plt Count 361
PT
INR
APTT 35.5 H
HCO3 20.9 L
Sodium 146 H
Potassium 4.5
Chloride 108 H
Carbon Dioxide 17 L
BUN 12
Creatinine 0.7
Glucose 119 H
Calcium 10.2
Total Bilirubin 0.6
AST 36
ALT 27
Alkaline Phosphatase 83
08/08/24 08/08/24
14:02 19:05
WBC
Hgb
Hct
Plt Count
PT Cancelled
INR Cancelled
APTT Cancelled Pending
HCO3
Sodium
Potassium
Chloride
Carbon Dioxide
BUN
Creatinine
Glucose
Calcium
Total Bilirubin
AST
ALT
Alkaline Phosphatase
Vital Signs:
Vital Signs
Temp Pulse Resp BP Pulse Ox
97.5 F 86 26 100/69 92
08/08/24 05:21 08/08/24 14:00 08/08/24 14:00 08/08/24 14:00 08/08/24 14:22
Review of Systems
-
History Source: Patient, Physician (reviewed with cardio) and Coordinated Provider
Constitutional: Denies Fever
EENT: Reports No Symptoms Reported
Respiratory: Reports No Symptoms; Denies Cough or Trouble Breathing
Cardiac: Reports Chest Pain (epigastric pain)
Abdomen/GI: Reports Abdominal Pain (epigastric pain)
Genitourinary: Reports No Symptoms
Physical Exam
-
General: Well Developed, Well Nourished and No Apparent Distress (thogu keeps feeling like she has to move bowels and vomit)
HEENT: Normocephalic, Atraumatic and Moist Mucous Membranes
Respiratory: Clear to Auscultation; Negative Wheezes, Rales or Rhonchi
Cardiac: Regular Rhythm and S1/S2
GI: Soft, Nontender and Nondistended
Musculoskeletal: No Clubbing, No Cyanosis and No Edema
Neuro: Awake, Alert and Oriented
Psych: Anxious
[2024-08-08 14:53] LABS: Urine Albumin Negative (Neg - Trace); Urine Bilirubin Negative (Negative); Urine Character Clear (Clear); Urine Color Yellow; Urine Glucose 3+ (Negative); Urine Ketone Negative (Negative); Urine Leukocyte Negative (Negative); Urine Nitrite Negative (Negative); Urine Occult Blood Negative (Negative); Urine Specific Gravity 1.015 (<1.030); Urine Urobilinogen Negative (Neg - 1+)
--- NOTE | 2024-08-08 15:20 | W.PN.UPDATE ---
Update Note
Progress Note Update
Echocardiogram that showed new severely reduced ejection fraction. She also has a significant oxygen requirement of 10 L. Her troponins are elevated, however, they do not show a massive HI that would lead to severely reduced ejection fraction.
Additionally, the degree of hypoxia seems out of proportion to her chest x-ray. We went and discussed further steps including heart catheterization with patient and she is agreeable to this. I talked with her and her sister. She remains with
significant supplemental oxygen but with otherwise stable vital signs at this time.
[2024-08-08 15:51] LABS: Magnesium 2.1 mg/dl (1.6-2.3); Phosphorus 3.7 mg/dl (2.5-4.5)
[2024-08-08 15:52] LABS: INR 1.13; PT 14.4 Sec (11.4-14.6)
--- NOTE | 2024-08-08 15:57 | CON.GI ---
Addendum entered and electronically signed by Tommy Guerra MD 08/08/24 17:56:
I saw and examined the patient.
The PA's note was reviewed and I agree with the note.
Comment:
63 year old female with h/o NSTEMI s/p CABG x4, HTN, paroxysmal A-fib, chronic marijuana use, and Wegovy for 8 months for weight loss who p/w nausea/vomiting, chest pain and shortness of breath.
Impression / Rec:
1. Chest pain/SOB/nausea/vomiting - significant elevation of trop, echo showing new severely reduced EF, requiring 10 L O2. Likely NSTEMI, going to cardiac cath today. Not c/o nausea/vomiting now. Do not think she has active GI issues. Will
s/o, call with questions.
Original Note:
Consultation
-
Date/Time Consultation Requested: 08/08/24 1402
Date/Time Consultation Performed: 08/08/24 1515
Requesting Provider: Dr. Benavidez
Performing Provider: Dr. Guerra/URIEL Bowman
Reason for Consultation: N/V
Medical History
Chief Complaint / HPI
Chief Complaint: Epigastric pain, nausea vomiting
History of Present Illness:
63 y.o. female with history of recent CAD w/ NSTEMI s/p CABG x4, Hypertension, hyperlipidemia, ADHD, osteoporosis, recovered ischemic cardiomyopathy, paroxysmal A-fib, chronic marijuana use, currently on Wegovy for 8 months for weight loss who
presents to the emergency room with 2-day history of nausea/vomiting, chest pain and shortness of breath. She also has a pain in her neck.She does tell me that she feels that this is cardiac related. At the present time the patient stopped with
nausea and vomiting. She has continued shortness of breath requiring 10 L on nonrebreather. Still with pulse ox at 92% We are asked to evaluate for nausea/vomiting. The patient denies any fevers, true chills however she will get cold when she
vomits, melena, hematochezia, dysphagia or odynophagia, she denies any change in her bowel movements to me. No sick contacts. She states she has had no changes in her medications recently. Patient got somewhat agitated when I continued asking
questions as she states this is a cardiac problem. I do not know why I should be seeing somebody from gastroenterology. I did explain to her that we were seeing her for nausea and vomiting. She states this has stopped.
Past Medical History
Past Medical History: CAD, HTN, Hypercholesterolemia and Other
Past Surgical History: Appendectomy and Other (CABG x 4, VSD repair, left shoulder replacement, cataracts)
Social History
Tobacco: Former Smoker
Alcohol: None
Drug: Marijuana
Living: Alone
Family History
Family History: Reviewed & Not Pertinent
Allergies / Home Medications
Allergy/AdvReac Type Severity Reaction Status Date / Time
mold Allergy Swelling/swollen Verified 05/25/24 17:46
joints
Penicillins Allergy Anaphylaxis Verified 05/24/24 13:05
at 9 years
old
requiring
intubation
�Medication �Instructions �Recorded
cholecalciferol (vitamin D3) 25 1,000 unit PO DAILY Supplement 11/01/23
mcg (1,000 unit) capsule (Vitamin
D3)
gabapentin 300 mg capsule 300 mg PO BID pain/muscle 11/01/23
acetaminophen 325 mg tablet 650 mg (2 x 325 mg) PO Q4HPRN PRN 11/09/23
mild pain,headache,temp >101F #0
tabs
clopidogrel 75 mg tablet 75 mg PO DAILY Heart 11/09/23
disease/condition #30 tabs
metoprolol succinate 100 mg 100 mg PO DAILY Heart 11/09/23
tablet,extended release 24 hr disease/condition #30 tabs
apixaban 5 mg tablet (Eliquis) 5 mg PO BID Blood Clot 01/30/24
Prevention/Tx
lorazepam 1 mg tablet 1 mg PO HSPRN PRN anxiety/sleep 01/30/24
spironolactone 25 mg tablet 25 mg PO DAILY Fluid 01/30/24
Retention/Swelling
amiodarone 200 mg tablet 200 mg PO BID Arrhythmia 05/22/24
evolocumab 140 mg/mL subcutaneous 140 mg SC Q2W High Cholesterol 05/22/24
pen injector (Jorge Luis Samano)
ezetimibe 10 mg tablet (Zetia) 10 mg PO QPM High Cholesterol 05/22/24
rosuvastatin 40 mg tablet 40 mg PO QPM High Cholesterol 05/22/24
sacubitril 97 mg-valsartan 103 mg 1 tab PO BID Heart Failure 05/24/24
tablet (Entresto)
dapagliflozin propanediol 10 mg 10 mg PO QPM Heart Failure 08/08/24
tablet (Farxiga)
omeprazole 40 mg capsule,delayed 40 mg PO BID 08/08/24
release
semaglutide (weight loss) 1.7 1.7 mg SC MO 08/08/24
mg/0.75 mL subcutaneous pen
injector (Wegovy)
Review of Systems
-
All other systems: A 12 pt ROS was Negative except as stated above in HPI
Vital Signs
Temp Pulse Resp BP Pulse Ox
97.5 F 85 26 107/79 91
08/08/24 05:21 08/08/24 15:30 08/08/24 15:30 08/08/24 15:00 08/08/24 15:30
Physical Exam
Exam
General: Other (Patient currently on nonrebreather, states that she has discomfort like feeling with shortness of breath)
HEENT: Anicteric
Respiratory: Clear (Anterior)
Cardiac: Regular Rhythm
GI: Soft, Non Tender, Non Distended and Normal Bowel Sounds
Musculoskeletal: No Edema
Neuro: AO x 3
Psych: Calm
Results
WBC 16.6 10^3/uL (4.8-10.8) H 08/08/24 06:22
Hgb 15.0 g/dL (12.0-16.0) 08/08/24 06:22
Hct 43.5 % (37.0-47.0) 08/08/24 06:22
MCV 92.9 fL (81.0-99.0) 08/08/24 06:22
Plt Count 361 10^3/uL (130-400) 08/08/24 06:22
Absolute Neuts (auto) 13.5 10^3/uL (1.4-6.5) H 08/08/24 06:22
PT Cancelled 08/08/24 14:02
INR Cancelled 08/08/24 14:02
APTT Cancelled 08/08/24 14:02
Sodium 146 mmol/L (135-145) H 08/08/24 06:22
Potassium 4.5 mmol/L (3.5-5.1) 08/08/24 06:22
Chloride 108 mmol/L (98-107) H 08/08/24 06:22
Carbon Dioxide 17 mmol/L (22-30) L 08/08/24 06:22
BUN 12 mg/dl (7-17) 08/08/24 06:22
Creatinine 0.7 mg/dL (0.6-1.0) 08/08/24 06:22
Calcium 10.2 mg/dl (8.4-10.2) 08/08/24 06:22
Total Bilirubin 0.6 mg/dl (0.2-1.3) 08/08/24 06:22
AST 36 U/L (14-36) 08/08/24 06:22
ALT 27 U/L (0-35) 08/08/24 06:22
Alkaline Phosphatase 83 U/L (38-126) 08/08/24 06:22
Lipase Cancelled 08/08/24 07:53
Diagnostic Image Results:
Prior GI Procedures:
EGD: 05/25/24 ([facility]) - 1 cm hiatal hernia.
- [place]-colored mucosa suspicious for short-segment
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 Biopsied.
- Hematin (altered blood/levhct-cpqumo-yusu material)
in the cardia, in the gastric fundus and in the
gastric body.
- Erythematous mucosa in the antrum.
- Biopsies were taken with a cold forceps for
Helicobacter pylori testing.
- Normal examined duodenum.
Colonoscopy:
Assessment / Plan
-
63 y.o. female with history of recent CAD w/ NSTEMI s/p CABG x4, Hypertension, hyperlipidemia, ADHD, osteoporosis, recovered ischemic cardiomyopathy, paroxysmal A-fib, chronic marijuana use, currently on Wegovy for 8 months for weight loss who
presents to the emergency room with 2-day history of nausea/vomiting, chest pain and shortness of breath. She also has a pain in her neck.She does tell me that she feels that this is cardiac related. At the present time the patient stopped with
nausea and vomiting. She has continued shortness of breath requiring 10 L on nonrebreather. Still with pulse ox at 92% We are asked to evaluate for nausea/vomiting. 05/25/2024 WBC 16.6, hemoglobin 15.0, hematocrit 43.5, platelets 361, INR 1.13,
sodium 146, potassium 4.5, chloride 108, CO2 17, BUN 12, creatinine 0.7, glucose 119, calcium 10.2, mag 2.1, total bilirubin 0.6, AST 36, ALT 27, alk phos 83, troponin 0.213--> 0.735--> 1.510, lipase 66, COVID-negative, chest x-ray no findings to
suggest pneumonia. Echo LVEF is approximately 15 to 20%. Patient is going to cardiac Stonemason at this time.
Impression:
Chest pain/nausea vomiting x 2 days
Elevated troponin 0.213--> 0.735--> 1.510
Echo with LVEF 15 to 20%
Hypoxia Requiring 10 L nonrebreather with O2 still at 92%
Afib on Eliquis
On GLP1-Wegovy injects on Mondays (has been on steady dose x 8 months)
Plan:
Patient going to field laboratory operator now
Continue Pantoprazole 40 mg IV BID
Antiemetics prn
Recommend Marijuana cessation
Consider UDS
-
-
Thank you for consultation and allowing me to participate in the patient's care. Please call the pharmacy operations manager GI physician during the after hours with any questions or concerns.
--- NOTE | 2024-08-08 16:48 | PTCARENOTE ---
Received from ER into ICU rm [id number] @ approx 1600. Max assisted from stretcher to bed; able to EWING. Ox3, denies chest pain. SR w 1st degree AVB, BBB, prolonged QT. Afebrile. No edema; +PP. SpO2 95% on NRB. Auscultated crackles @ B/L base;
occasional manpower development specialist moist cough. Cont b/b. Report loose stool this AM; no BMs since then. Reports nausea @ epigastric level. NPO status maintained pending lab tester. Skin c/d/i. # 20 R FA w heparin gtt infusing-see flow sheet. # 20 R wrist patent,
dressing c/d/i. Instructed on how to report care concerns and call crow ramirez in reach.
--- NOTE | 2024-08-08 17:05 | PTCARENOTE ---
Heparin gtt held per Dr. Arrieta. roofing laborer RN x2 transported pt via bed to cathode ray tube salvage processor @ this time on NRB and hardwire monitor. Awaiting report from cathode ray tube salvage processor.
--- NOTE | 2024-08-08 18:24 | ITS.CL.CATH ---
Vacuum Bottle Assembler - Catheterization
Cardiac Catheterization
Procedure Report:
CARDIAC CATHETERIZATION REPORT
Date of Procedure: 08/08/2024
Referring: Koby Rider M.D.
INDICATION: Acute cardiomyopathy, hypoxia, known coronary artery disease status post bypass.
PROCEDURE:
1. Left heart catheterization
2. Coronary angiography.
3. Bypass angiography.
4. Left ventriculography.
ACCESS:
6 Italian left radial artery.
CATHETERS:
1. 5 Italian OSCAR.
2. 5 Italian JL 4.
3. 5 Italian JR4.
4. 6 Italian AL-1.
5. 5 Italian angled pigtail.
HEMODYNAMIC DATA
Weight (kg): 63.5
AO (s/d/x, mmHg): 101/68/79
LV (s/x mmHg): 98/26
LEFT VENTRICULOGRAPHY: Performed in an DAWSON projection. Severely dilated left ventricle. There is akinesis of the entire mid ventricle and distal ventricle with hyperdynamic function of the anterior and inferior base with hypokinesis of the true
apex, consistent with a variant of Takotsubo cardiomyopathy. Left ventricular ejection fraction estimated at 15-20%. There is no mitral valve regurgitation. There is no aortic valve insufficiency. The aortic root and ascending aorta appear
normal.
CORONARY ANGIOGRAPHY
Dominance: Right.
Left Main: Normal size, bifurcating vessel. There are luminal irregularities.
LAD: Normal size vessel giving rise to 1 significant diagonal. There is an 80% lesion in the proximal/mid LAD, spanning the origin of the diagonal. The distal vessel is supplied by a patent OLVERA graft.
Ramus: Congenitally absent.
Circumflex: Large size, nondominant vessel giving rise to 2 obtuse marginals. There are 20% and 30% lesions in the body of the proximal circumflex. There is an 80% lesion in the mid circumflex immediately after the origin of OM1. This is
followed by tandem 90% lesions as the vessel traces the AV groove to become OM 2. OM 1 is severely tortuous with multiple 30% lesions, but no obvious obstructive disease. OM 2 is supplied by a patent vein graft.
RCA: Normal size, dominant vessel. The artery is chronically totally occluded at its origin. The distal vessel supplied by patent vein graft.
BYPASS GRAFT ANGIOGRAPHY
OLVERA to LAD: Normal size graft with end-to-side anastomosis to the mid LAD. There is a 50-60% lesion at the anastomosis with competitive flow.
SVG to RPDA: Normal size graft with end-to-side anastomosis to the RPDA. There is some mild stenosis of the proximal third of the graft.
SVG to OM2: Normal size graft with end-to-side anastomosis to the second obtuse marginal. There is no evidence of stenosis or graft generation.
SVG to OM1: Occluded at its origin.
INTERVENTION(S)
1. Initiation of norepinephrine for hypotension.
Closure Device: Vascular band.
Radiation (mGy): 572.53
DAP (cm2.Gy): 44.9753
Fluoroscopy time (minutes): 9.8
Sedation time (minutes): 0
CONCLUSIONS
1. Right dominant circulation with chronic total occlusion of the RCA, and 80% lesion in the proximal/mid LAD spanning the origin of the diagonal, 20% and 30% lesions in the proximal circumflex and OM1, and 80% lesion in the mid circumflex followed
by tandem 90% lesions as the circumflex becomes OM 2, status post bypass (patent OLVERA to LAD with a 50% anastomotic lesion, patent SVG to RCA with mild proximal graft narrowing, patent SVG to OM 2, occluded SVG to OM1).
2. Severely dilated left ventricle with akinesis of the mid and distal ventricle with hyperdynamic base and severely hypokinetic apex, consistent with a variant of Takotsubo cardiomyopathy. LV ejection fraction estimated at 15-20%.
3. Severely elevated filling pressures (LVEDP = 26 mmHg at 63.5 kg).
4. Hypotension requiring vasopressor support.
RECOMMENDATIONS:
1. Expectant management after cardiac catheterization via left radial approach.
2. Limited weight bearing on the left wrist for one week.
3. Blood pressure support with norepinephrine.
4. Low threshold for placement of a Rothschild-Ha catheter and mechanical circulatory support if warranted.
5. Hold all guideline directed medical therapy in light of relative hypotension and restart as hemodynamics will tolerate.
6. Diuresis as hemodynamics tolerate.
Copy to: Koby Rider M.D., Michaela Gonzalez M.D., Ivette Mandujano M.D.
Jono Arrieta DO, FACC, FACP
--- NOTE | 2024-08-08 19:00 | PTCARENOTE ---
Received pt. back from laboratory sampler @ 0632 w L radial T-band in place- see post cath flow sheet. Transitioned from NRB to 15LMF, SpO2 92%. Levo gtt infusing @ 5mcg/kg/min- see flow sheet. Heparin gtt to remain off s/p cath per Dr. Arrieta. Tolerating
ice chips, reports ongoing intermittent nausea @ epigastric site; denies chest pain. Call maria placed back w in reach.
[2024-08-08] MEDS: CRESTOR 40 MG PO (19:52)
[2024-08-08] MEDS: FARXIGA 10 MG PO (19:52)
[2024-08-08] MEDS: PROTONIX 40 MG PO (19:52)
[2024-08-08] MEDS: ZETIA 10 MG PO (19:53)
--- NOTE | 2024-08-08 20:00 | PTCARENOTE ---
Rec'd pt resting in bed, cooperative, follows commands, SR w/ prol QT, ekg done post cath- B ADA Frederick given EKG to read due to critical prol QT, to keep MAP > 65 w/ levophed, see flow sheet for titrations, presently decr to 4 yumi,denies CP,
left rad TR band intact- see flow sheet for air removal documentation, good sensation left hand, normal movement, weak distal pulses, no edema, skin warm/dry, o2 via midflow 15 liters, sat 93, lungs w/ crackles in bases, decr in bases, hypo bowel
sounds, no bm, has epigastric discomfort, no n/v, jw ice chips, voiding megan urine w/o difficulty
--- NOTE | 2024-08-08 21:30 | PTCARENOTE ---
TR band off, dsg applied, site wnl
--- NOTE | 2024-08-09 | PTCARENOTE ---
sys reviewed, changes noted, lungs decr in bases, Left rad site wnl, no c/o pain
[2024-08-09] MEDS: ATIVAN 0.5 MG IV (02:24)
[2024-08-09] MEDS: NSS (PRESERVATIVE FREE) 0.25 ML IV (02:25)
--- NOTE | 2024-08-09 02:25 | PTCARENOTE ---
ativan 0.5 mg iv given for anx
[2024-08-09 02:58] LABS: Hematocrit 38.1 % (37.0-47.0); Hemoglobin 13.4 g/dL (12.0-16.0); Mean Corp Hgb Conc. 35.2 g/dL (33.0-37.0); Mean Corpuscular Hgb 32.5 pg (27.0-31.0); Mean Corpuscular Volume 92.5 fL (81.0-99.0); Mean Platelet Volume 10.8 fL (7.4-10.4); Platelet Count 342 10^3/uL (130-400); Red Blood Cell Count 4.12 10^6/uL (4.20-5.40); Red Cell Dist. Width 13.9 % (11.5-14.5)
--- NOTE | 2024-08-09 04:06 | PTCARENOTE ---
Addendum entered by Nidhi Wang RN 08/09/24 04:46:
mid flow decr to 10 liters by resp therapist
Original Note:
sys reviewed, changes noted, dozing
[2024-08-09 04:37] LABS: ALT (SGPT) 20 U/L (0-35); AST (SGOT) 40 U/L (14-36); Albumin 3.8 g/dl (3.5-5.0); Alkaline Phosphatase 62 U/L (38-126); Blood Urea Nitrogen 12 mg/dl (7-17); Calcium 9.1 mg/dl (8.4-10.2); Carbon Dioxide 21 mmol/L (22-30); Chloride 104 mmol/L (98-107); Estimated Creatinine Clearance 66 ml/min; Glucose 100 mg/dl (70-99); Potassium 3.7 mmol/L (3.5-5.1); Sodium 141 mmol/L (135-145); Total Bilirubin 0.5 mg/dl (0.2-1.3); Total Protein 6.1 g/dl (6.3-8.2); eGFR > 60.00
--- NOTE | 2024-08-09 05:14 | PTCARENOTE ---
sat 88%, midflow incr to 15 liters
[2024-08-09] MEDS: NEURONTIN 300 MG PO ×2 (08:14→20:07)
[2024-08-09] MEDS: PLAVIX 75 MG PO (08:15)
[2024-08-09] MEDS: VITAMIN D3 (cholecalciferol) 25 MCG PO (08:15)
[2024-08-09] MEDS: PROTONIX 40 MG PO ×2 (08:15→20:07)
--- NOTE | 2024-08-09 08:28 | W.PN.INTV ---
Today's Communication / Plan
Recommendations
Diuresis as tolerated
Wean oxygen
Increase activity
Resume amiodarone
Stable for transfer out of ICU-call pulmonary if respiratory issues arise
Assessment
-
63-year-old female with underlying CAD/CABG, recovered ischemic cardiomyopathy, hypertension, hyperlipidemia, PAF on amiodarone and Eliquis who is a former smoker who presented with shortness of breath, chest pain, vomiting, diarrhea and systemic
body aches found to have respiratory failure and may be going to cardiac Recruiting Operations Consultant emergently-sales representative facility services consulted for respiratory failure/critical care management 08/08/2024.
Respiratory failure-acute hypoxemic
CHF--reduced EF-15-20%
Takotsubo cardiomyopathy
Chest pain with elevated troponin-rising 0.2 then 0.7 and now 1.5
CAD/history of CABG
Abdominal pain/nausea/vomiting/diarrhea
Leukocytosis-WBC 16.6
Mild hypernatremia
Metabolic acidosis
Hyperglycemia
Conditions present prior to admission:
Recent hospitalization 11/09/2023-CABG x 4, status post non-ST segment elevation myocardial infarction
Recent hospitalization 05/26/2024-admitted with persistent nausea and vomiting, initially signed out AMA and then returned and underwent EGD which revealed gastritis
Hypertension.
Hyperlipidemia.
CAD/CABG.
Recovered ischemic cardiomyopathy.
PAF.
Chronic amiodarone.
Chronic anticoagulation-Eliquis.
ADHD.
Former smoker.
Prior alcohol misuse.
Gastritis.
Obesity
Left shoulder surgery
Plan
Hemodynamically the patient has improved
Supplemental oxygen as needed-currently on nonrebreather-attempt to wean to room air
High flow oxygen if needed-tried briefly-was uncomfortable with the amount of air going up into her 'sinuses'
Noninvasive ventilation has not been required
Aspiration precautions per protocol
Nebulizers if needed-currently not bronchospastic
Cardiology evaluation ongoing-correspondence reviewed
Echocardiogram 08/08/2024 markedly abnormal with EF now 15-20%, intermediate diastolic dysfunction PA systolic 65, significant reduction from May 23, 2024
Status post cardiac catheterization 08/08/2024-no significant coronary obstructions
Takotsubo cardiomyopathy suspected
Diuresis as tolerated
Inotropes and pressors as needed
Monitor renal function, electrolytes, intake/output, lower extremity edema and weight
Replace electrolytes as needed
Heparin drip initiated
Amiodarone continues-currently on 200 mg twice daily-monitor for pulmonary toxicity
Infectious disease consultation noted
Follow leukocytosis
Monitor off antibiotics-no clear signs of active infection
Monitor renal function
Replace electrolytes
Reverse acidosis
Bicarb if needed
Monitor blood sugar
Insulin supplementation as needed
DVT prophylaxis-on heparin drip
GI prophylaxis-on pantoprazole
Nutrition once stabilized
Early mobilization
Respiratory status has improved with diuresis-continue to wean oxygen-transfer out of ICU-call pulmonary if respiratory issues arise
Outpatient pulmonary evaluation eventually-full PFTs, ongoing smoking cessation counseling, screen for ETHAN
Reviewed the patient's pertinent medical records including radiographs, pressor management, respiratory failure management, microbiology, laboratory evaluations, and discussion with primary team, consultants, pharmacy, nutrition, physical therapy,
case management, charge nurse, critical care nursing, and respiratory therapy.
Diagnostic data:
Chest x-ray 10/30/2023-stable mild bibasilar atelectasis
Chest x-ray 08/08/2024-no findings to suggest pneumonia, mild CHF
CT chest 11/02/2023-lungs are clear
CT abdomen and pelvis 01/30/2024-no acute process in the abdomen or pelvis, diverticulosis, cholelithiasis, lower chest AP dimension consistent with hyper aeration of COPD, minimal scarring at both lung bases
CT abdomen and pelvis 05/24/2024-cholelithiasis, diverticulosis, lung bases are clear
Spirometry 11/02/2023-FEV1 1.76-76%, FVC 2.3-77%
Subjective Dataa
Subjective Data
Date of Service:
Date of Service: August 09, 2024
Chief Complaint: Supervisor Roving Department Follow Up and Pulmonary Follow Up
Subjective:
Feels much better, less short of breath, no chest pain, chest tightness, still has some epigastric discomfort, no abdominal pain or leg swelling
Review of Systems
General: Other (Per HPI)
Objective Data
Data Reviewed
Vital Signs / I&O / Oxygen:
Vital Signs
Temp Pulse Resp BP Pulse Ox
97.7 F 82 21 86/64 94
08/09/24 07:59 08/09/24 07:00 08/09/24 07:00 08/09/24 07:00 08/09/24 07:00
Intake and Output
08/08/24 08/09/24 08/10/24
06:59 06:59 06:59
Intake Total 175.2 / 175.2
Output Total 850 / 850 100 / 100
Balance -674.8 / -674.8 -100 / -100
SaO2 94
Nasal Cannula flow liters per 40
minute
Physical Exam
General: Respiratory Distress (n) and Comfortable
HEENT: Normocephalic, Anicteric and Moist Mucous Membranes
Cardiovascular: Regular Rhythm
Respiratory: Crackles (Bibasilar), Rhonchi (n), Non-Labored Respirations, Accessory Resp Muscle Use (n) and Stridor (n)
GI: Soft, Non Distended and Non Tender
Neurology: Awake, Alert and No Motor Deficits
Skin: Warm, Good Color, Cyanosis (n), Jaundice (n) and Rash (n)
Labs/Micro/Reports
Lab Data
08/09/24 02:33
08/09/24 04:02
Laboratory Results
08/08/24 08/08/24 08/08/24
06:22 12:55 13:40
PT Cancelled 14.4
INR Cancelled 1.13
APTT Cancelled 35.5 H
pH 7.41
pCO2 33
pO2 60 L
HCO3 20.9 L
O2 Delivery Level
08/08/24 08/08/24
14:02 19:05
PT Cancelled
INR Cancelled
APTT Cancelled Cancelled
pH
pCO2
pO2
HCO3
O2 Delivery Level
--- NOTE | 2024-08-09 08:59 | W.PN.ID1 ---
Date of Service
Date of Service: August 09, 2024
Today's Communication
Monitor off antibiotics.
Assessment / Plan
Chest pain/epigastric pain
ACS
Nausea/vomiting
Leukocytosis
Hypoxemia
Hyponatremia
Elevated troponin
CAD; Hx GA
Ischemic cardiomyopathy
HTN
Dyslipidemia
Osteoporosis
ADHD
Recommendations:
At present, no evidence of infectious process. Suspect leukocytosis is reactive.
Monitor off antibiotics for now, but will have a low threshold to start should there be clinical decompensation.
Blood cultures have been obtained; will continue to follow. (TD)
Monitor white count and temperature curve.
Subjective / Review of Systems
Patient seen and examined. Currently feeling improved, with resolution of chest discomfort. She underwent left heart catheterization yesterday evening, with findings of chronic total occlusion of the RCA and 80% lesion in the proximal/mid LAD.
Review of Systems: No Fever and No Chills
Vital Signs / Physical Exam
Vital Signs
Vital Signs
Temp Pulse Resp BP Pulse Ox
97.7 F 82 21 112/90 95
08/09/24 07:59 08/09/24 08:03 08/09/24 08:03 08/09/24 08:03 08/09/24 08:30
Physical Exam
Constitutional: No Acute Distress, Comfortable and Non-toxic
Eyes: Sclera Anicteric
Cardiovascular: S1/S2; Negative S3/S4 or Murmur
Pulmonary: Clear and Non Labored
Gastrointestinal: Soft and Non Tender
Skin: Negative Rash or Jaundice
Neurological: Awake and Alert
Psychological: Calm
Objective Data
Lab Data
Lab Results
08/09/24 02:33
08/09/24 04:02
PT Cancelled 08/08/24 14:02
INR Cancelled 08/08/24 14:02
APTT Cancelled 08/08/24 19:05
Estimated Creat Clear 66 ml/min 08/09/24 04:02
Total Bilirubin 0.5 mg/dl (0.2-1.3) 08/09/24 04:02
AST 40 U/L (14-36) H 08/09/24 04:02
ALT 20 U/L (0-35) 08/09/24 04:02
Alkaline Phosphatase 62 U/L (38-126) 08/09/24 04:02
Most recent labs reviewed.
Micro Results:
08/08/24 12:55 Blood Culture - Pending
Blood/Venous
08/08/24 12:55 Blood Culture - Pending
Blood/Venous
Imaging:
08/08/2024 ECHO (TTE): Normal LV size, with severely reduced systolic function. EF approximately 15 to 20% by visual estimation. No LVH. Normal RV size and function. Moderate tricuspid regurgitation. Mitral annular calcification noted.
Thickened mitral valve leaflets with trace mitral regurgitation. Aortic valve shows trileaflet valve. IVC is of normal size and demonstrates normal respiratory variation. No intracardiac mass or thrombus formation seen. Please see full dictation
for additional detail.
08/08/2024 CXR (2 view): No findings to suggest pneumonia. Sternal wires and left shoulder arthroplasty are noted. Please see full dictation for additional detail. Film personally viewed.
--- NOTE | 2024-08-09 09:40 | PTCARENOTE ---
pt took meds as ordered this am on empty stomach. prior to getting breakfast pt c/o lower abdominal pain which she reports as intermittently and ongoing since her last admission 2 months ago. pt denies any nausea. applesauce given until breakfast
arrived.
--- NOTE | 2024-08-09 10:35 | W.PN.CD ---
Today's Communication / Plan
-
IV diuresis
resume amio
Impression / Plan
-
BACKGROUND: 63F with CAD (NSTEMI & CABG 10/2023), ICM (recovered), HTN, HLD, former smoker, & former ETOH misuse (sobriety > 20 years) presented with N/V/D, body aches, abdominal pain, chest pain, and chills. She was found to have possible Takotsubo
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
Title Specialist: Dr. Gonzalez
Acute hypoxic respiratory insufficiency
-Improving
-DDx: PNA (leukocytosis), doubtful of PE as she denies missed doses of apixaban
Chest pain
-Prior CP was gastritis (04/2024) currently CP free
-In the setting of acute GI distress
Abnormal troponin, likely demand ischemia from acute illness
-Trend to peak
CAD
-Continue aspirin and BB
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
-GDMT on hold for low BP at this point
- previously tolerated
-Beta-leonora: Metoprolol succinate
-MRA: Spironolactone
-ACEI/ARB: Entresto
-SGLT2: Farxiga
-Trend daily weight, I/O
Paroxysmal atrial fibrillation
-In sinus rhythm on amiodarone
-Oral Anticoagulation: Apixaban 5 mg twice daily, she denies missed doses and abnormal bleeding
-[id number]: Score at least 5 (Heart failure, HTN, Vascular disease, age 65-74, female gender)
Abdominal pain, per primary
Nausea/vomiting/diarrhea - per primary
Hypertension, stable
Dyslipidemia, on rosuvastatin, Zetia, and Repatha
Physical Exam
Vital Signs/Labs
Vital Signs
Temp Pulse Resp BP Pulse Ox
97.7 F 75 20 102/63 89
08/09/24 07:59 08/09/24 10:00 08/09/24 10:00 08/09/24 10:00 08/09/24 10:00
08/08/24 08/09/24 08/10/24
06:59 06:59 06:59
Actual Weight 140 lb 6.951 oz 136 lb 10.986 oz
08/09/24 02:33
08/09/24 04:02
PT Cancelled 08/08/24 14:02
INR Cancelled 08/08/24 14:02
APTT Cancelled 08/08/24 19:05
Magnesium 2.0 mg/dl (1.6-2.3) 08/09/24 04:02
LAB Results
08/08/24 08/08/24 08/08/24
06:22 09:23 12:55
Troponin I 0.213 H* 0.735 H* D 1.510 H* D
08/08/24 08/08/24 08/09/24
14:02 19:05 02:33
Troponin I Cancelled 2.870 H* D 2.810 H*
Physical Exam
Constitutional: No acute distress
EENT: Anicteric
Cardiovascular: Rhythm & rate is regular and Pedal edema is absent
Respiratory: Respiratory effort normal and Crackles Present
GI: Soft
Neuro/Psych: AO x 3
Data Reviewed
-
Date of Service: August 09, 2024
EKG: Tracing Personally Visualized and interpreted (sr)
Echo: Tracing Personally Visualized and interpreted
Labs: Labs Reviewed by me
[2024-08-09] MEDS: ELIQUIS 5 MG PO ×2 (11:32→20:07)
[2024-08-09] MEDS: LASIX 40 MG IV (11:32)
--- NOTE | 2024-08-09 12:02 | PTCARENOTE ---
pt resting when undisturbed. woke up for vitals, manager med surg. pt without complaint. t/o shift pt reports depression after [place]/cabg october. emotioinal support provided t/o shift.
--- NOTE | 2024-08-09 14:46 | CM ---
CM following re: discharge planning.
Discussed in Rounds, reviewed pt's chart, met with pt and pt's sister at bedside.
Patient lives alone in a one story home with no steps. Pt stated that she is independent with her ADLs, personal care, bathing and dressing. 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 She drives and can get to her appointments and do all
of her own shopping. Pt reports she has no children, has supportive sister and supportive friends.
Patient denied any DME in home.
Pt is aware she might be transferred to IVU.
She has had VN services in the past through .
Pharmacy: [facility] in [place]
PCP: Ivette Mandujano.
D/C plan: home with anticipated no needs. Sister to transport at discharge.
CM will follow with discharge plan updates as hospitalization progresses
[2024-08-09] MEDS: FARXIGA 10 MG PO (17:28)
[2024-08-09] MEDS: CRESTOR 40 MG PO (17:28)
[2024-08-09] MEDS: ZETIA 10 MG PO (17:28)
--- NOTE | 2024-08-09 18:33 | W.PN.HOSP.TC ---
Today's Communication/Plan
-
transfer to IVU
Assessment / Plan
Assessment / Plan
Nausea/vomiting/diarrhea of unclear etio
Pt on Wegovy, ?correlation
Abn Echocardiogram
Echo: Normal LV size with severely reduced systolic function.
LVEF is approximately 15 to 20% by visual estimation.
Hyperdynamic base with severe hypokinesis of other LV segments.
No LVH. Diastolic function indeterminate.
Normal RV size and function.
Moderate tricuspid regurgitation.
Estimated pulmonary artery systolic pressure at 65 mmHg.
Compared to prior from May 23, 2024, and LVEF is now severely reduced as
described above, previously normal, and estimated PASP is severely elevated.
as per cardio, major concern is for Takotsubo cardiomyopathy
In review and comparison of prior Echo, cardio does not believe any abnormalities in valves and thus unlikely to be SBE
Trop elevating
0.213-->0.735-->1.510-->2.81
cardio believes from demand ischemia
Hx of CAD
s/p CABG 11/05/2023
Leukocytosis
etio unclear
WBC 16.6-->20.[address] Starkey believes this is reactive
No fever and Blood Cx neg to date
Paroxysmal Atrial fibrillation
on Chronic Amiodarone and Eliquis
Hypoxemia
significantly improved, oxygen requirements now down to 2 L/M with SaO2 94%
P:Pt was admitted to ICU, will be transferred to IVU
Eliquis resumed. Follow CBC
Full Code
See dictated note
Anticipated Discharge: > 48 hours
Subjective/Interval History
-
Date of Service: August 09, 2024
Looks much better, voice is stronger
Objective Data
-
Vital Signs:
Vital Signs
Temp Pulse Resp BP Pulse Ox
98.1 F 82 21 101/65 94
08/09/24 15:36 08/09/24 15:11 08/09/24 11:28 08/09/24 15:11 08/09/24 16:00
I&O
08/08/24 08/09/24 08/10/24
06:59 06:59 06:59
Intake Total 175.2 / 175.2 590 / 590
Output Total 850 / 850 800 / 800
Balance -674.8 / -674.8 -210 / -210
Review of Systems
-
History Source: Patient, Physician (reviewed with cardio) and Coordinated Provider
Constitutional: Denies Fever
EENT: Reports No Symptoms Reported
Respiratory: Reports No Symptoms; Denies Cough or Trouble Breathing
Cardiac: Reports Chest Pain (epigastric pain)
Abdomen/GI: Reports Abdominal Pain (epigastric pain, on admission, now resolved); Denies Vomiting (resolved) or Diarrhea (resolved)
Genitourinary: Reports No Symptoms
Physical Exam
-
General: Well Developed, Well Nourished and No Apparent Distress (thogu keeps feeling like she has to move bowels and vomit)
HEENT: Normocephalic, Atraumatic and Moist Mucous Membranes
Respiratory: Clear to Auscultation; Negative Wheezes, Rales or Rhonchi
Cardiac: Regular Rhythm and S1/S2
GI: Soft, Nontender and Nondistended
Musculoskeletal: No Clubbing, No Cyanosis and No Edema
Neuro: Awake, Alert and Oriented
Psych: Anxious
[2024-08-09] MEDS: ATIVAN 1 MG PO (20:07)
[2024-08-09] MEDS: PACERONE 200 MG PO (20:07)
--- NOTE | 2024-08-09 20:30 | PTCARENOTE ---
pt transferred to ivu with all belongings in stable condition
--- NOTE | 2024-08-09 22:00 | PTCARENOTE ---
Pt received as tx from ICU. Pt hooked up to tele showing SR with HR in the 90s and oriented to room. VSS, weaned to RA satting 96%. No complaints of SOB. L radial cath site c/d/i. Ambulating independently in room without difficulty. Can make
needs known. Call maria within reach.
--- NOTE | 2024-08-10 04:01 | DOWNTIME ---
There was a [employer] Client Chip Drier Downtime on 08/10/2024 from 0100 to 08/10/2024 at 0355. Downtime documentation of patient's care, including medication administrations, has been reconciled in the electronic record per guidelines. Refer to the
patient's paper chart under the miscellaneous tab to see printed paper medication records and downtime forms.
[2024-08-10 06:06] LABS: % Basophils 0.1 % (0-2); % Eosinophils 0.1 % (0-6); % Immature Granulocytes 0.4 % (0-0.5); % Lymphocytes 13.3 % (20.5-51.1); % Monocytes 8.3 % (1.7-9.3); % Neutrophils 77.8 % (42.2-75.2); Absolute Immature Granulocytes 0.1 10^3/uL (0-0.05); Absolute Monocytes 1.2 10^3/uL (0.1-0.6); Absolute Neutrophils 11.7 10^3/uL (1.4-6.5); Hematocrit 37.7 % (37.0-47.0); Hemoglobin 12.8 g/dL (12.0-16.0); Mean Corpuscular Hgb 31.7 pg (27.0-31.0); Mean Corpuscular Volume 93.3 fL (81.0-99.0); Mean Platelet Volume 10.7 fL (7.4-10.4); Nucleated Red Blood Cells % 0 %; Platelet Count 300 10^3/uL (130-400); Red Blood Cell Count 4.04 10^6/uL (4.20-5.40); Red Cell Dist. Width 13.7 % (11.5-14.5)
[2024-08-10 06:35] LABS: Blood Urea Nitrogen 17 mg/dl (7-17); Calcium 9.1 mg/dl (8.4-10.2); Carbon Dioxide 24 mmol/L (22-30); Chloride 99 mmol/L (98-107); Estimated Creatinine Clearance 58 ml/min; Glucose 111 mg/dl (70-99); Potassium 3.7 mmol/L (3.5-5.1); Sodium 137 mmol/L (135-145); eGFR > 60.00
--- NOTE | 2024-08-10 08:05 | PTCARENOTE ---
Patient received from date night caregiver resting in bed, AAO x 3, denies pain at this time. NSR via cm. Assisted oob to bathroom, am care provided independently. Settled to chair for breakfast. Patient updated to plan of care for the day, in agreement. See
work list for full assessment and interventions performed.
[2024-08-10] MEDS: PACERONE 200 MG PO (08:16)
[2024-08-10] MEDS: PROTONIX 40 MG PO (08:16)
[2024-08-10] MEDS: PLAVIX 75 MG PO (08:17)
[2024-08-10] MEDS: ELIQUIS 5 MG PO (08:17)
[2024-08-10] MEDS: VITAMIN D3 (cholecalciferol) 25 MCG PO (08:17)
[2024-08-10] MEDS: NEURONTIN 300 MG PO (08:17)
--- NOTE | 2024-08-10 10:21 | W.PN.CD ---
Addendum entered and electronically signed by URIEL Alonso 08/10/24 15:00:
Per CDI Query: this is acute systolic heart failure
Original Note:
Today's Communication / Plan
-
resume entresto today
resume spironolactone in am
both doses have been decreased
no standing lasix, would use prn dosing strategy
Impression / Plan
-
BACKGROUND: 63F with CAD (NSTEMI & CABG 10/2023), ICM (recovered), HTN, HLD, former smoker, & former ETOH misuse (sobriety > 20 years) presented with N/V/D, body aches, abdominal pain, chest pain, and chills. She was found to have possible Takotsubo
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
Tool Radial Drill Press Set Up Operator: Dr. Gonzalez
Acute hypoxic respiratory insufficiency
-Improving
-DDx: PNA (leukocytosis), doubtful of PE as she denies missed doses of apixaban, CHF contributing
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
-GDMT on hold for low BP at this point
-previously tolerated
-Beta-leonora: Metoprolol succinate---will add back as op
-MRA: Spironolactone 25mg daily_--will add back 12.5mg daily
-ACEI/ARB: Entresto--->Add back today at 24/26mg po bid dose
-SGLT2: Farxiga continuing in house
-GLP 1---seems this has been causing GI distress that continues. I think we can stop this and monitor for improvement
-Trend daily weight, I/O
-cardiac rehab c/s
-repeat echo 90 days after maximal medical therapy
Paroxysmal atrial fibrillation
-In sinus rhythm on amiodarone
-Oral Anticoagulation: Apixaban 5 mg twice daily, she denies missed doses and abnormal bleeding
-[id number]: Score at least 5 (Heart failure, HTN, Vascular disease, age 65-74, female gender)
Type 2 [place] in the setting of Takotsubo CMY
CAD
-Continue aspirin and BB
Abdominal pain, per primary
Nausea/vomiting/diarrhea - per primary
Hypertension, stable
Dyslipidemia, on rosuvastatin, Zetia, and Repatha
Subjective;
she is feeling much better, ambulating off oxygen
Physical Exam
Vital Signs/Labs
Vital Signs
Temp Pulse Resp BP Pulse Ox
98 F 83 20 115/74 100
08/10/24 07:35 08/10/24 08:16 08/10/24 07:35 08/10/24 08:16 08/10/24 08:01
08/09/24 08/10/24 08/11/24
06:59 06:59 06:59
Actual Weight 62 kg 61 kg
08/10/24 05:56
08/10/24 05:56
PT Cancelled 08/08/24 14:02
INR Cancelled 08/08/24 14:02
APTT Cancelled 08/08/24 19:05
Magnesium 2.0 mg/dl (1.6-2.3) 08/09/24 04:02
LAB Results
08/08/24 08/08/24 08/08/24
06:22 09:23 12:55
Troponin I 0.213 H* 0.735 H* D 1.510 H* D
08/08/24 08/08/24 08/09/24
14:02 19:05 02:33
Troponin I Cancelled 2.870 H* D 2.810 H*
Physical Exam
Constitutional: No acute distress
Cardiovascular: Rhythm & rate is regular, Pedal edema is absent, JVD pressure is normal and Systolic murmur absent
Respiratory: Respiratory effort normal, Lungs clear to auscul., Wheeze Absent, Crackles Absent and Rhonchi Absent
Neuro/Psych: AO x 3
Data Reviewed
-
Date of Service: August 10, 2024
Medical Decision Making: Review of Case with other Provider (Dr Benavidez resuming entresto today )
--- NOTE | 2024-08-10 10:33 | W.PN.ID1 ---
Date of Service
Date of Service: August 10, 2024
Today's Communication
Sign off
Assessment / Plan
Chest pain/epigastric pain
ACS
Nausea/vomiting
Leukocytosis
Hypoxemia
Hyponatremia
Elevated troponin
CAD; Hx IL
Ischemic cardiomyopathy
HTN
Dyslipidemia
Osteoporosis
ADHD
Recommendations:
At present, no evidence of infectious process. Suspect leukocytosis is reactive.
Blood cultures no growth to date.
Continue off antibiotics.
Little more to offer from a Infectious Diseases standpoint.
Will see again at your request. Please call with any questions.
Chief Complaint
-: Leukocytosis
Subjective / Review of Systems
Patient seen and examined. Notes some ongoing subxiphoid discomfort today. No fevers or chills.
Vital Signs / Physical Exam
Vital Signs
Vital Signs
Temp Pulse Resp BP Pulse Ox
98 F 91 20 115/74 100
08/10/24 07:35 08/10/24 10:00 08/10/24 07:35 08/10/24 08:16 08/10/24 08:01
Physical Exam
Constitutional: No Acute Distress, Comfortable and Non-toxic
Eyes: Sclera Anicteric
Cardiovascular: S1/S2; Negative S3/S4 or Murmur
Pulmonary: Clear and Non Labored
Gastrointestinal: Soft and Non Tender
Skin: Negative Rash or Jaundice
Neurological: Awake and Alert
Psychological: Calm
Objective Data
Lab Data
Lab Results
08/10/24 05:56
08/10/24 05:56
PT Cancelled 08/08/24 14:02
INR Cancelled 08/08/24 14:02
APTT Cancelled 08/08/24 19:05
Estimated Creat Clear 58 ml/min 08/10/24 05:56
Total Bilirubin 0.5 mg/dl (0.2-1.3) 08/09/24 04:02
AST 40 U/L (14-36) H 08/09/24 04:02
ALT 20 U/L (0-35) 08/09/24 04:02
Alkaline Phosphatase 62 U/L (38-126) 08/09/24 04:02
Most recent labs reviewed.
Micro Results:
08/08/24 12:55 Blood Culture - Preliminary
Blood/Venous No Growth in 24 hours- Final report to follow
08/08/24 12:55 Blood Culture - Preliminary
Blood/Venous No Growth in 24 hours- Final report to follow
Imaging:
08/08/2024 ECHO (TTE): Normal LV size, with severely reduced systolic function. EF approximately 15 to 20% by visual estimation. No LVH. Normal RV size and function. Moderate tricuspid regurgitation. Mitral annular calcification noted.
Thickened mitral valve leaflets with trace mitral regurgitation. Aortic valve shows trileaflet valve. IVC is of normal size and demonstrates normal respiratory variation. No intracardiac mass or thrombus formation seen. Please see full dictation
for additional detail.
08/08/2024 CXR (2 view): No findings to suggest pneumonia. Sternal wires and left shoulder arthroplasty are noted. Please see full dictation for additional detail. Film personally viewed.
Care Review
Plan reviewed with: Physician (Cardiology)
--- NOTE | 2024-08-10 12:30 | CM ---
CM following for DC planning needs.
Met w/ patient at bedside.
Pt. is hopeful for DC soon. She has questions regarding whether [facility] can accept her insurance. She asked for assist w/ this. Pt. declines any DC needs.
Plan is for home, no needs.
--- NOTE | 2024-08-10 14:17 | PN.CDI ---
CDI
- -
CDI:
Physician Documentation Request
Admit Date: 08/08/24 12:36
Dear Doctor Reema,
Please review the following and provide your response in the progress notes.
Clinical Indicators:
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
There is potentially conflicting documentation regarding the respiratory diagnosis.
Documented per H&P and progress notes 08/08 & 08/09 , ' Hypoxemia...'
Documented per real time trader consult & notes, ' Respiratory failure-acute hypoxemic...Supplemental oxygen as needed-currently on nonrebreather...'
Respiratory note 08/08@1434,' Respiratory: patient unable to tolerated high-flow nasal cannula (HFNC) @ 40L 80% SpO2 89%. Returned back to non-rebreather mask SpO2 92-93%. HFNC at bedside stand-by....'
Pt care note 08/08 @ 1900, ' Transitioned from NRB to 15LMF, SpO2 92%....'
Patient care note 08/08 @ 2000,' o2 via midflow 15 liters, sat 93....'
Patient care note 08/09 @0406, ' mid flow decr to 10 liters by resp therapist...'
Patient care note 08/09 @ 0514, ' sat 88%, midflow incr to 15 liters...'
08/08/24
05:30 08/08/24
05:45 08/08/24
09:00
Resp Rate 30 26 26
08/08/24
10:45 08/08/24
13:45 08/08/24
14:22
Resp Rate 26 29
Nasal Cannula flow liters per minute 40
08/08/24
20:00 08/09/24
03:39 08/09/24
05:00
SaO2 86
Flow liters per minute # 15 10
08/09/24
05:14 08/09/24
08:00 08/09/24
08:30
Flow liters per minute # 15 15 6
08/09/24
12:16 08/09/24
15:24
Flow liters per minute # 6
Nasal Cannula flow liters per minute 4
Please clarify the diagnosis for the above findings/Treatment :
Acute Hypoxic Respiratory failure
Hypoxia - Only ( no change in documentation)
Other
Additional information for Respiratory Failure:
Recognized criteria for Respiratory Failure (Source: [facility] Aug 2013)
ABGs: (1 or more) Symptoms Please indicate type if known
1. pO2 <60 or RA SPO2 <91% on RA 1. Tachypnea, SOB, dyspnea Hypoxic
2. pCO2 50 and pH <7.35 2. Use of accessory muscles Hypercapnic
3. pO2 decrease of pCO2 increase by 3. Pallor or cyanosis Hypoxic and Hypercapnic
10 mmHg from baseline if known 4. Anxiety or restlessness Unable to determine
5. Unable to speak in full sentences
Supplemental O2 of > 40% (5LPM) Intubation is not required
Use of terms such as suspected, likely, concern for, or probable (associated with a specific diagnosis that is being evaluated, monitored, or treated as if it exists) are acceptable and can be coded in the inpatient setting, when documented at the
time of discharge.
Thank you,
Hannah Steele RN
CDI Specialist
[place] [facility]
Please use your independent medical judgment in providing your response.
--- NOTE | 2024-08-10 14:34 | W.PN.HOSP.TC ---
Addendum entered and electronically signed by Romaine Benavidez MD 08/10/24 14:40:
Acute Hypoxic Respiratory failure multifactorial, now fully resolved
Original Note:
Today's Communication/Plan
-
dc to home
Assessment / Plan
Assessment / Plan
Nausea/vomiting/diarrhea of unclear etio
Pt was on Wegovy, ?correlation, since stopped
Abn Echocardiogram
Echo: Normal LV size with severely reduced systolic function.
LVEF is approximately 15 to 20% by visual estimation.
Hyperdynamic base with severe hypokinesis of other LV segments.
No LVH. Diastolic function indeterminate.
Normal RV size and function.
Moderate tricuspid regurgitation.
Estimated pulmonary artery systolic pressure at 65 mmHg.
Compared to prior from May 23, 2024, and LVEF is now severely reduced as
described above, previously normal, and estimated PASP is severely elevated.
as per cardio, major concern is for Takotsubo cardiomyopathy
In review and comparison of prior Echo, cardio does not believe any abnormalities in valves and thus unlikely to be SBE
Trop elevating
0.213-->0.735-->1.510-->2.81
cardio believes from demand ischemia
Hx of CAD
s/p CABG 11/05/2023
Leukocytosis
etio unclear
WBC 16.6-->20.0-->15k
Dr. Starkey believes this is reactive
No fever and Blood Cx neg to date
Paroxysmal Atrial fibrillation
on Chronic Amiodarone and Eliquis
Hypoxemia
resolved
Full Code
markedly improved
will dc to home
See dictated note
More than 30 minutes spent in discharge including
Final examination of the patient
Summarizing hospital stay
Instructions for continuing care to all relevant caregivers
Preparation of discharge records, prescriptions, and referral forms
Total time spent (in minutes): 45
Anticipated Discharge: Today
Subjective/Interval History
-
Date of Service: August 10, 2024
Feels well, has been cleared by cardio for dc and is anxiously awaiting dc
Objective Data
-
Labs:
Laboratory Results
08/10/24
05:56
WBC 15.0 H
Hgb 12.8
Hct 37.7
Plt Count 300
Sodium 137
Potassium 3.7
Chloride 99
Carbon Dioxide 24
BUN 17
Creatinine 0.8
Glucose 111 H
Calcium 9.1
Vital Signs:
Vital Signs
Temp Pulse Resp BP Pulse Ox
98.5 F 82 20 110/73 95
08/10/24 11:57 08/10/24 12:04 08/10/24 11:57 08/10/24 11:59 08/10/24 11:59
I&O
08/09/24 08/10/24 08/11/24
06:59 06:59 06:59
Intake Total 175.2 / 175.2 590 / 590 250 / 250
Output Total 850 / 850 800 / 800
Balance -674.8 / -674.8 -210 / -210 250 / 250
Review of Systems
-
History Source: Patient, Physician (reviewed with cardio) and Coordinated Provider
Constitutional: Denies Fever
EENT: Reports No Symptoms Reported
Respiratory: Reports No Symptoms; Denies Cough or Trouble Breathing
Cardiac: Reports Chest Pain (epigastric pain)
Abdomen/GI: Reports Abdominal Pain (epigastric pain, on admission, now resolved); Denies Vomiting (resolved) or Diarrhea (resolved)
Genitourinary: Reports No Symptoms
Physical Exam
-
General: Well Developed, Well Nourished, No Apparent Distress and Conversant
HEENT: Normocephalic, Atraumatic and Moist Mucous Membranes
Respiratory: Clear to Auscultation; Negative Wheezes, Rales or Rhonchi
Cardiac: Regular Rhythm and S1/S2
GI: Soft, Nontender and Nondistended
Musculoskeletal: No Clubbing, No Cyanosis and No Edema
Neuro: Awake, Alert and Oriented
Psych: Anxious
--- NOTE | 2024-08-10 14:35 | PN.CDI ---
CDI
- -
CDI:
Physician Documentation Request
Admit Date: 08/08/24 12:36
Dear Doctor/ SENIOR TECHNOLOGIST,
Please review the following and provide your response in the progress notes.
Clinical Indicators:
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
Documented per [employer] Publisher Business Consult and progress notes, ' CHF--reduced EF-15-20%...'
Cardiac cath report, ' Severely dilated left ventricle with akinesis of the mid and distal ventricle with hyperdynamic base and severely hypokinetic apex, consistent with a variant of Takotsubo cardiomyopathy. LV ejection fraction estimated at
15-20%. Severely elevated filling pressures (LVEDP = 26 mmHg at 63.5 kg).....Diuresis as hemodynamics tolerate....'
Per MAR pt did get IV lasix 4 mg on 08/08 &08/09
Please provide further specificity regarding the most likely acuity of CHF you are evaluating, treating or monitoring.
Acute Systolic CHF
Acute on Chronic Systolic CHF
Other ( please specify)
Use of terms such as suspected, likely, concern for, or probable (associated with a specific diagnosis that is being evaluated, monitored, or treated as if it exists) are acceptable and can be coded in the inpatient setting, when documented at the
time of discharge.
Thank you,
Hannah Steele RN
CDI Specialist
[place] [facility]
Please use your independent medical judgment in providing your response.
--- NOTE | 2024-08-10 14:45 | PN.CDI ---
CDI
- -
CDI:
Physician Documentation Request
Admit Date: 08/08/24 12:36
Dear Doctor/ REEFER TRUCK DRIVER,
Please review the following and provide your response in the progress notes.
Current documentation includes a diagnosis of hypotension.
Clinical Indicators:
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
Documented per cardiac cath, ' Hypotension requiring vasopressor support.... norepinephrine....'
Patient care note 08/08@ 1900, ' Levo gtt infusing @ 5mcg/kg/min...'
Patient care note 08/08 @ 1999, ' to keep MAP > 65 w/ levophed, see flow sheet for titrations, presently decr to 4 yumi...'
08/08/24
19:30 08/09/24
00:00 08/09/24
01:00
Blood pressure 88/64 90/66 90/65
08/09/24
04:00 08/09/24
05:00 08/09/24
06:00
Blood pressure 83/63 93/65 91/60
08/09/24
07:00
Blood pressure 86/64
Please clarify which of the following is the most likely etiology of the above symptoms and treatment rendered/ Levophed:
Cardiogenic shock
Hypotension only
Other
Use of terms such as suspected, likely, concern for, or probable (associated with a specific diagnosis that is being evaluated, monitored, or treated as if it exists) are acceptable and can be coded in the inpatient setting, when documented at the
time of discharge.
Thank you,
Hannah Steele RN
CDI Specialist
[place] [facility]
Please use your independent medical judgment in providing your response.
--- NOTE | 2024-08-10 15:10 | W.DS.TRANS ---
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
-
Discharge Instructions:
Sleep Apnea Risk Intermediate
Discharge Diagnosis/Procedures Takotsubo Cardiomyopathy
Diet No added salt
Activity No strenuous activity
Driving Restrictions try to limit
Bathing Restrictions None
Blood Work CBC
BMP in 1-2 weeks, this has been electronically
sent to [facility]
Instructions:
Stand-Alone Forms:
Changes to Home Medications: Yes
Discharge Medications:
DC Medications w/original date entered in [employer]
cholecalciferol (vitamin D3) 25 mcg (1,000 unit) capsule (Vitamin D3) 1,000 unit PO DAILY Supplement 11/01/23
gabapentin 300 mg capsule 300 mg PO BID pain/muscle 11/01/23
acetaminophen 325 mg tablet 650 mg (2 x 325 mg) PO Q4HPRN PRN mild pain,headache,temp >101F #0 tabs 11/09/23
clopidogrel 75 mg tablet 75 mg PO DAILY Heart disease/condition #30 tabs 11/09/23
metoprolol succinate 100 mg tablet,extended release 24 hr 100 mg PO DAILY Heart disease/condition #30 tabs 11/09/23
apixaban 5 mg tablet (Eliquis) 5 mg PO BID Blood Clot Prevention/Tx 01/30/24
lorazepam 1 mg tablet 1 mg PO HSPRN PRN anxiety/sleep 01/30/24
amiodarone 200 mg tablet 200 mg PO BID Arrhythmia 05/22/24
evolocumab 140 mg/mL subcutaneous pen injector (Repatha SureClick) 140 mg SC Q2W High Cholesterol 05/22/24
ezetimibe 10 mg tablet (Zetia) 10 mg PO QPM High Cholesterol 05/22/24
rosuvastatin 40 mg tablet 40 mg PO QPM High Cholesterol 05/22/24
dapagliflozin propanediol 10 mg tablet (Farxiga) 10 mg PO QPM Heart Failure 08/08/24
omeprazole 40 mg capsule,delayed release 40 mg PO BID Gastrointestinal Issue 08/08/24
sacubitril 24 mg-valsartan 26 mg tablet (Entresto) 1 tab PO BID #60 tabs 08/10/24
spironolactone 25 mg tablet 12.5 mg (1/2 x 25 mg) PO DAILY #30 tabs 08/10/24
Home Medication Changes
Decrease Spironolactone to 12.5 mg daily
Decrease dose of Entresto to 24-26 daily
stop Concerta
stop Wegovy
Pending Results: No
--- NOTE | 2024-08-10 16:00 | PTCARENOTE ---
Discharge order received - medications clarified w/physician. Discharge instructions thoroughly reviewed w/patient and sister, all questions answered. PIV removed. Patient and all belongings transported to waiting vehicle for d/c home.
== END 2024-08-10 16:09 | disposition home or self-care (01) | DRG 280 ==
LOC: IVU 12:36
PROVIDERS: Internal Medicine Cardiovascular Disease; Nurse Practitioner Gerontology; ADMITTING PHYSICIAN Internal Medicine; CONSULT PHYSICIAN Internal Medicine Cardiovascular Disease; CONSULT PHYSICIAN Internal Medicine Critical Care Medicine; CONSULT PHYSICIAN Internal Medicine Gastroenterology; EMERGENCY PHYSICIAN Emergency Medicine; FAMILY PHYSICIAN Family Medicine; OTHER PHYSICIAN Internal Medicine Infectious Disease
PROC: 4A023N7 Measurement of Cardiac Sampling and Pressure, Left Heart, Percutaneous Approach (ICD-10-PCS; 2024-08-08)
PROC: B2131ZZ Fluoroscopy of Multiple Coronary Artery Bypass Grafts using Low Osmolar Contrast (ICD-10-PCS; 2024-08-08)
PROC: B2151ZZ Fluoroscopy of Left Heart using Low Osmolar Contrast (ICD-10-PCS; 2024-08-08)
PROC: B2111ZZ Fluoroscopy of Multiple Coronary Arteries using Low Osmolar Contrast (ICD-10-PCS; 2024-08-08)
DX: I51.81 Takotsubo syndrome (principal); I50.21 Acute systolic (congestive) heart failure; I21.A1 Myocardial infarction type 2; J96.01 Acute respiratory failure with hypoxia; E87.0 Hyperosmolality and hypernatremia; I25.810 Atherosclerosis of coronary artery bypass graft(s) without angina pectoris; E87.20 Acidosis, unspecified; E66.9 Obesity, unspecified; I10 Essential (primary) hypertension; I48.0 Paroxysmal atrial fibrillation; I25.5 Ischemic cardiomyopathy; I25.2 Old myocardial infarction; D72.829 Elevated white blood cell count, unspecified; E78.00 Pure hypercholesterolemia, unspecified; F43.0 Acute stress reaction; F90.9 Attention-deficit hyperactivity disorder, unspecified type; I25.10 Atherosclerotic heart disease of native coronary artery without angina pectoris; K29.70 Gastritis, unspecified, without bleeding; K44.9 Diaphragmatic hernia without obstruction or gangrene; M81.0 Age-related osteoporosis without current pathological fracture; I95.9 Hypotension, unspecified; F12.90 Cannabis use, unspecified, uncomplicated; M54.2 Cervicalgia; R68.83 Chills (without fever); R73.9 Hyperglycemia, unspecified; R19.7 Diarrhea, unspecified; T50.995A Adverse effect of other drugs, medicaments and biological substances, initial encounter; Z68.25 Body mass index [BMI] 25.0-25.9, adult; Z79.01 Long term (current) use of anticoagulants; Z79.02 Long term (current) use of antithrombotics/antiplatelets; Z79.899 Other long term (current) drug therapy; Z87.891 Personal history of nicotine dependence; Z87.19 Personal history of other diseases of the digestive system; Z96.612 Presence of left artificial shoulder joint; Z88.0 Allergy status to penicillin; Z82.49 Family history of ischemic heart disease and other diseases of the circulatory system
CPT/HCPCS: 36600; 71046; 80048; 80053; 81003; 82805; 83690; 83735; 84100; 84484; 85025; 85027; 85610; 85730; 87040; 87811; 93005; 93306; 93459; 96374; 96375; 99285; C1894; Q9967

== ENCOUNTER 2024-08-29 07:58 | Emergency (ER) | payer OTHER, SELFPAY ==
[2024-08-29 08:02] VITALS: BP 139/76; BMI 25.0
[2024-08-29 08:03] VITALS: BP 139/76
[2024-08-29 08:25] LABS: % Basophils 0.1 % (0-2); % Immature Granulocytes 0.4 % (0-0.5); % Lymphocytes 8.7 % (20.5-51.1); % Monocytes 4.6 % (1.7-9.3); % Neutrophils 86.2 % (42.2-75.2); Absolute Monocytes 0.5 10^3/uL (0.1-0.6); Absolute Neutrophils 9.6 10^3/uL (1.4-6.5); Hematocrit 38.6 % (37.0-47.0); Hemoglobin 13.6 g/dL (12.0-16.0); Mean Corp Hgb Conc. 35.2 g/dL (33.0-37.0); Mean Corpuscular Hgb 32.5 pg (27.0-31.0); Mean Corpuscular Volume 92.3 fL (81.0-99.0); Mean Platelet Volume 10.5 fL (7.4-10.4); Nucleated Red Blood Cells % 0 %; Platelet Count 309 10^3/uL (130-400); Red Blood Cell Count 4.18 10^6/uL (4.20-5.40); White Blood Cell Count 11.1 10^3/uL (4.8-10.8)
--- NOTE | 2024-08-29 08:31 | ED.GENMED ---
History of Present Illness
General
Chief Complaint: Abdominal Pain
Source: patient
Time Seen by Provider: 08/29/24 08:12
History of Present Illness
History of Present Illness:
63-year-old female presents to the emergency room for evaluation of abdominal pain nausea and vomiting. Patient was recently hospitalized here at [place] for similar complaints. She was found to have an elevated troponin and ultimately to have
Takotsubo's cardiomyopathy. Patient states the symptoms began this morning. Patient was feeling constipated and a suppository. She began having bowel movements but at the same time began having nausea vomiting and epigastric abdominal pain. She
is vomited multiple times. She denies any shortness of breath. She does not have chest pain.
Past History
Past History
ED Past Medical History: CAD, CHF, HTN, Hypercholesterolemia, CO and Other (ADHD, osteoporosis, ischemic cardiomyopathy)
ED Past Surgical History: Appendectomy, Cardiac (Quad Bypass, Ventricular septal defect, ), Orthopedic (Left shoulder replacement) and Other (cataracts, )
Patient has exhibited threatening behavior?: No
Social History
Tobacco: Former smoker
Alcohol: None
Drug: Marijuana
Personal: Single
Living: alone
Phy Exam
Physical Exam
Physical Exam:
General: Awake, Alert, Oriented X3. No acute distress.
Vitals: unremarkable
Head: Atraumatic
Eyes: Pupils equal, EOMI
Throat: Airway intact, no exudates
Neck: Trachea midline
Lungs: Clear and equal b/l
Heart: Regular rate, no murmurs
Abd: Soft, tenderness palpation upper abdomen bilaterally and epigastric region, No pulsatile mass
Neuro: Nonfocal
Skin: Warm, dry, no rash
Extremities: pulses equal b/l, no edema
Course
Orders/Labs/Results
Orders:
Orders
08/29/24 08:01
Electrocardiogram (*1) Urgent
Reason for Study: Chest Pain
EKG- Treatment ONCE
08/29/24 08:11
IV Insert/Care/Rem.- Treatment PRN
08/29/24 08:12
Complete Blood Count/With Diff Urgent
Comprehensive Metabolic Panel Urgent
Lipase Urgent
Comment: ADD ON
Magnesium Urgent
Comment: ADD ON
Troponin I Urgent
08/29/24 08:30
Add On- LAB Urgent
Tests Added?: mag, lipase
08/29/24 09:38
Echo Follow-up Study Routine
Reason for Study: LVEF assessment
08/29/24 09:55
Acetaminophen [Tylenol] 1,000 mg .ROUTE .STK-MED ONE
08/29/24 09:58
Acetaminophen [Tylenol] 1,000 mg PO NOW STA
08/29/24 11:58
EKG [Electrocardiogram (*1)] Routine
Reason for Study: QTc Monitoring
Abnormal Lab Results
08/29/24
08:12
WBC 11.1 H 10^3/uL
(4.8-10.8)
RBC 4.18 L 10^6/uL
(4.20-5.40)
MCH 32.5 H pg
(27.0-31.0)
MPV 10.5 H fL
(7.4-10.4)
Absolute Neuts (auto) 9.6 H 10^3/uL
(1.4-6.5)
Absolute Lymphs (auto) 1.0 L 10^3/uL
(1.2-3.4)
Neutrophils % 86.2 H %
(42.2-75.2)
Lymphocytes % 8.7 L %
(20.5-51.1)
Chloride 93 L mmol/L
(98-107)
BUN 20 H mg/dl
(7-17)
Glucose 129 H mg/dl
(70-99)
Calcium 10.4 H mg/dl
(8.4-10.2)
Troponin I 0.058 H* ng/ml
08/29/24 08:12
08/29/24 08:12
Vital Signs
Initial and Last Documented VS:
Initial Vital Signs
Temp Pulse Resp BP Pulse Ox
98.8 F 76 16 139/76 98
08/29/24 08:02 08/29/24 08:02 08/29/24 08:02 08/29/24 08:02 08/29/24 08:02
Last Documented Vital Signs
Temp Pulse Resp BP Pulse Ox
98.8 F 74 14 95/68 93
08/29/24 08:02 08/29/24 10:30 08/29/24 10:30 08/29/24 10:00 08/29/24 10:30
MDM/Problems Addressed
Differential Diagnosis Includes:
Constipation, gastritis, viral illness, anginal equivalent,
MDM/Problems Addressed:
Patient presents with nausea vomiting epigastric pain. On exam she does have some mild epigastric tenderness. EKG shows a prolonged QT but no ischemic changes. Labs show a very minimally elevated troponin. Discussed the patient's presentation
with Dr. Billingsley who is on-call for cardiology. She is on at least 3 medications which could affect the QTc. Patient Jose Cruz evaluated the patient. He read her echo which he said appears much improved from last echo. Patient stable for discharge
from cardiology standpoint. She should stop amiodarone given her prolonged QTc. Patient states she is not taking omeprazole on regular basis. I have also asked her to withhold this completely. Patient will follow-up with cardiology as an
outpatient
*Pulse Oximetry
Patient hypoxic: no
*EKG
Interpreted by ED Provider?: Yes
Heart Rate: 68
Rate: normal
Rhythm: sinus
Interval: long QT
QRS Pattern: right bundle branch block
Ischemia: non-specific ST changes
*Referral Coordinator Interpretation
Rate: normal
Interpretation: normal
Heart Rate: 68
Rhythm: sinus
*Critical Care Note
Total Time (30-74mins, 75-104mins- exclusive of procedures): Not Applicable
Data Reviewed
Review of Other/Old Records Reveals: Labs, Progress Notes (Cardiology notes) and Discharge Summary
ED Attending Note
-
Portions of this chart may have been created with voice recognition software.� Occasional wrong word or��sound alike� substitutions may have occurred due to the inherent limitations of voice recognition software.
Discharge Plan
Departure
Patient Disposition: Home (Routine Discharge)
Date of Disposition: 08/29/24
Time of Disposition: 11:48
Patient with high blood pressure during this ER visit?: No
Condition: Good
Discharge Problem:
Nausea & vomiting, Prolonged QT interval
Instructions: Long QT syndrome, Nausea and Vomiting, Adult ED
Prescriptions:
No Action
gabapentin 300 mg Capsule
300 mg PO BID
cholecalciferol (vitamin D3) [Vitamin D3] 25 mcg (1,000 unit) Capsule
1,000 unit PO DAILY
clopidogrel 75 mg Tablet
75 mg PO DAILY Qty: 30 1RF
Eliquis 5 mg Tablet
5 mg PO BID
lorazepam 1 mg Tablet
1 mg PO HSPRN PRN (Reason: anxiety/sleep)
Patient Comments:
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
amiodarone 200 mg Tablet
200 mg PO BID
ezetimibe [Zetia] 10 mg Tablet
10 mg PO QPM
rosuvastatin 40 mg Tablet
40 mg PO QPM
Repatha SureClick 140 mg/mL Pen Injector
140 mg SC Q2W
dapagliflozin propanediol [Farxiga] 10 mg tablet
10 mg PO DAILY
Theragen Tablet
1 tab PO DAILY
spironolactone 25 mg tablet
12.5 mg PO DAILY
sucralfate [Carafate] 1 gram Tablet
1 g PO TIDPRN PRN (Reason: stoamch issues)
bisacodyl [Dulcolax (bisacodyl)] 10 mg Suppository
10 mg SC DAILYPRN PRN (Reason: constipation)
Entresto 24-26 mg tablet
1 tab PO BID
Referrals:
Ivette Mandujano MD [Family Provider] -
Activity Restrictions/Additional Instructions:
Bernie stop taking amiodarone as recommended by Dr. Billingsley. Also stop taking omeprazole. Follow up with Dr. Billingsley as he recommended.
Interventions
Interventions:
*Risk Screen - Suicide Last Done: 08/29/24 08:02
*General Assessment Last Done: 08/29/24 08:02
*Neglect/Abuse Screening Last Done: 08/29/24 08:02
ED- Fall Risk Assessment Last Done: 08/29/24 08:20
*ED COVID-19 Vaccine History Last Done: 08/29/24 08:02
[id number] Assessment Last Done: 08/29/24 08:28
Discharge Date and Time
Print Language: KU[place]I
[2024-08-29 08:36] LABS: ALT (SGPT) 24 U/L (0-35); AST (SGOT) 29 U/L (14-36); Albumin 4.9 g/dl (3.5-5.0); Alkaline Phosphatase 76 U/L (38-126); Blood Urea Nitrogen 20 mg/dl (7-17); Calcium 10.4 mg/dl (8.4-10.2); Carbon Dioxide 28 mmol/L (22-30); Chloride 93 mmol/L (98-107); Estimated Creatinine Clearance 51 ml/min; Glucose 129 mg/dl (70-99); Potassium 4.1 mmol/L (3.5-5.1); Sodium 137 mmol/L (135-145); Total Bilirubin 0.3 mg/dl (0.2-1.3); Total Protein 7.7 g/dl (6.3-8.2); eGFR > 60.00
[2024-08-29 08:48] LABS: Troponin I 0.058 ng/ml
[2024-08-29 09:00] VITALS: BP 100/87
[2024-08-29 09:10] LABS: Lipase 64 U/L (23-300); Magnesium 2.2 mg/dl (1.6-2.3)
--- NOTE | 2024-08-29 09:52 | CON.CAR ---
Addendum entered and electronically signed by Bert Billingsley MD 08/29/24 14:56:
I saw and examined the patient.
The AGRICULTURAL SCIENCES PROFESSOR's note was reviewed and I agree with the note except for the following:
Echo with significant improvement in LVEF.
Far enough out that we may stop amiodarone => pt aware.
QT likely multifactorial: amio, zofarn, other meds: no syncope, no VT/torsades. Will stop amio.
OK for home from our perspective.
Original Note:
Consultation
Consultation Request
Date/Time Consultation Requested: 08/29/2024 09:25
Date/Time Consultation Performed: 08/29/2024 09:40
Requesting Provider: Dr. Wilbert Espino
Performing Provider: URIEL Braswell for Dr. Billingsley
Reason for Consultation: Abnormal troponin, prolonged QTc
Medical History
-
Chief Complaint: Abdominal pain, nausea
History of Present Illness:
Saige Alva is a 63-year-old female (known to Dr. 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
(amiodarone, apixaban), ADHD, former smoker, and prior alcohol misuse and recently diagnosed Takotsubo cardiomyopathy presented to the emergency department via EMS with a chief complaint of nausea, vomiting, and abdominal pain. She endorsed
constipation without a bowel movement for 2 days. She used a suppository. She reports immediately after having a bowel movement she got the sudden onset of abdominal pain and began vomiting. She denies chest pain. She has no shortness of breath.
No syncope/presyncope. She called EMS. She was given intravenous Zofran. She was found to have an abnormal troponin and a prolonged QTc.
Past Medical History
Past Medical History: Arrhythmias (Paroxysmal atrial fibrillation [on amiodarone and apixaban]), CAD (CABG), CHF (ICM [resolved], Takotsubo cardiomyopathy [07/2024]), HTN, Hypercholesterolemia and Other
Past Surgical History: Cardiac (CABG) and Orthopedic
Social History
Tobacco: Former Smoker
Alcohol: Former
Drug: Marijuana
Personal: Single
Living: Alone
Family History
Family History: Reviewed & Not Pertinent
Allergies / Home Medications
Allergy/AdvReac Type Severity Reaction Status Date / Time
mold Allergy Swelling/swollen Verified 05/25/24 17:46
joints
Penicillins Allergy Anaphylaxis Verified 05/24/24 13:05
at 9 years
old
requiring
intubation
�Medication �Instructions �Recorded �Confirmed �Type
cholecalciferol (vitamin D3) 25 1,000 unit PO DAILY Supplement 11/01/23 08/29/24 History
mcg (1,000 unit) capsule (Vitamin
D3)
gabapentin 300 mg capsule 300 mg PO BID pain/muscle 11/01/23 08/29/24 History
clopidogrel 75 mg tablet 75 mg PO DAILY Heart 11/09/23 08/29/24 Rx
disease/condition #30 tabs
apixaban 5 mg tablet (Eliquis) 5 mg PO BID Blood Clot 01/30/24 08/29/24 History
Prevention/Tx
lorazepam 1 mg tablet 1 mg PO HSPRN PRN anxiety/sleep 01/30/24 08/29/24 History
amiodarone 200 mg tablet 200 mg PO BID Arrhythmia 05/22/24 08/29/24 History
evolocumab 140 mg/mL subcutaneous 140 mg SC Q2W High Cholesterol 05/22/24 08/29/24 History
pen injector (Repatha SureClick)
ezetimibe 10 mg tablet (Zetia) 10 mg PO QPM High Cholesterol 05/22/24 08/29/24 History
rosuvastatin 40 mg tablet 40 mg PO QPM High Cholesterol 05/22/24 08/29/24 History
dapagliflozin propanediol 10 mg 10 mg PO DAILY Heart Failure 08/08/24 08/29/24 History
tablet (Farxiga)
bisacodyl 10 mg rectal suppository 10 mg OR DAILYPRN PRN constipation 08/29/24 08/29/24 History
(Dulcolax (bisacodyl))
sacubitril 24 mg-valsartan 26 mg 1 tab PO BID heart failure 08/29/24 08/29/24 History
tablet (Entresto)
spironolactone 25 mg tablet 12.5 mg PO DAILY heart condition/BP 08/29/24 08/29/24 History
sucralfate 1 gram tablet (Carafate) 1 g PO TIDPRN PRN stoamch issues 08/29/24 08/29/24 History
therapeutic multivitamin 1 tab PO DAILY Supplement 08/29/24 08/29/24 History
Review of Systems
-
History Source: Patient
All other systems: Negative unless noted
Constitutional: No Symptoms
EENT: No Symptoms
Respiratory: No Symptoms
Cardiac: No Symptoms
Abdomen/GI: Abdominal Pain, Nausea and Vomiting
: No Symptoms
Musculoskeletal: No Symptoms
Skin: No Symptoms
Neurological: No Symptoms
Endocrine: No Symptoms
Hematologic/Lymphatic: No Symptoms
Physical Exam
Vital Signs
Temp Pulse Resp BP Pulse Ox
98.8 F 73 16 139/76 97
08/29/24 08:02 08/29/24 08:30 08/29/24 08:30 08/29/24 08:03 08/29/24 08:30
Lab Results
08/29/24 08:12
08/29/24 08:12
Troponin I 0.058 ng/ml H* 08/29/24 08:12
Physical Exam
General: Well Developed, Well Nourished, No Apparent Distress and Comfortable
HEENT: Normocephalic, Anicteric and Moist Mucous Membranes
Respiratory: Clear and Non Labored Respirations
Cardiac: S1/S2 and Regular Rhythm
Breast: Deferred by me
GI: Soft, Non Tender, Non Distended and Normal Bowel Sounds
Rectal: Deferred by Provider
Genito-urinary: No Costovertebral Tender
Musculoskeletal: No Clubbing, No Cyanosis and No Edema
Skin: Warm and Dry
Neuro: AO x 3
Hematologic/Lymphatic: No Lymphadenopathy
Psych: Calm
Impression / Plan
-
BACKGROUND: 63F with CAD (NSTEMI & CABG 10/2023), ICM (recovered), HTN, HLD, former smoker, & former ETOH misuse (sobriety > 20 years) presented with N/V/D, body aches, abdominal pain, chest pain, and chills. 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
during last admission (discharged 08/10/2024), presented with nausea, vomiting, and abdominal pain. She was found to have an abnormal troponin and a prolonged QTc
Gas Dispenser: Dr. Gonzalez
IMPRESSION/PLAN:
Nausea & vomiting with abdominal pain
-Per primary
-Stop amiodarone
Abnormal troponin, likely nonischemic myocardial injury
-Slowly trending down from prior hospitalization
-Limited TTE to reassess LVEF
-She has no chest pain
-Trend to peak
Prolonged QTc
-Hold QT prolonging agents
-Stop amiodarone
CAD
-Stable without chest pain
-Continue aspirin and resume BB
Ischemic cardiomyopathy, recovered
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
-Stable without shortness of breath
-GDMT is limited by blood pressure
-Beta-leonora: Resume metoprolol succinate 12.5mg daily
-MRA: Spironolactone
-ACEI/ARB: Entresto
-SGLT2: Farxiga
-She appears euvolemic on exam
Paroxysmal atrial fibrillation
-In sinus rhythm, stop amiodarone
-Oral Anticoagulation: Apixaban 5 mg twice daily, she denies missed doses and abnormal bleeding
-[id number]: Score at least 5 (Heart failure, HTN, Vascular disease, age 65-74, female gender)
Hypertension, stable
Dyslipidemia, on rosuvastatin, Zetia, and Repatha
SUBJECTIVE:
Relief of nausea with Zofran.
No chest pain.
DATA:
Cardiac catheterization, 08/08/2024:
1. Right dominant circulation with chronic total occlusion of the RCA, and 80% lesion in the proximal/mid LAD spanning the origin of the diagonal, 20% and 30% lesions in the proximal circumflex and OM1, and 80% lesion in the mid circumflex followed
by tandem 90% lesions as the circumflex becomes OM 2, status post bypass (patent OLVERA to LAD with a 50% anastomotic lesion, patent SVG to RCA with mild proximal graft narrowing, patent SVG to OM 2, occluded SVG to OM1).
2. Severely dilated left ventricle with akinesis of the mid and distal ventricle with hyperdynamic base and severely hypokinetic apex, consistent with a variant of Takotsubo cardiomyopathy. LV ejection fraction estimated at 15-20%.
3. Severely elevated filling pressures (LVEDP = 26 mmHg at 63.5 kg).
4. Hypotension requiring vasopressor support.
Transthoracic echocardiogram, 08/08/2024:
Normal LV size with severely reduced systolic function.
LVEF is approximately 15 to 20% by visual estimation.
Hyperdynamic base with severe hypokinesis of other LV segments.
No LVH. Diastolic function indeterminate.
Normal RV size and function.
Moderate tricuspid regurgitation.
Estimated pulmonary artery systolic pressure at 65 mmHg.
Compared to prior from May 23, 2024, and LVEF is now severely reduced as
described above, previously normal, and estimated PASP is severely elevated.
Data Reviewed
-
EKG: Report Reviewed by me (EKG is)
Medical Tests (Nuc Med, Echo etc): Report Reviewed by me (Prior echocardiogram, cardiac catheterization as above)
Labs: Labs Reviewed by me
Old Records: Reviewed
[2024-08-29] MEDS: TYLENOL 1000 MG PO (09:59)
[2024-08-29 10:00] VITALS: BP 95/68
[2024-08-29 11:38] VITALS: BP 98/57
[2024-08-29 11:58] VITALS: BP 111/61
== END 2024-08-29 12:15 | disposition home or self-care (01) ==
LOC: EMR 07:58
PROVIDERS: EMERGENCY PHYSICIAN Emergency Medicine; FAMILY PHYSICIAN Family Medicine; OTHER PHYSICIAN Internal Medicine Cardiovascular Disease
DX: R11.2 Nausea with vomiting, unspecified (principal); R10.13 Epigastric pain; I25.10 Atherosclerotic heart disease of native coronary artery without angina pectoris; I48.0 Paroxysmal atrial fibrillation; E78.5 Hyperlipidemia, unspecified; I25.2 Old myocardial infarction; I11.0 Hypertensive heart disease with heart failure; I50.9 Heart failure, unspecified; Z87.891 Personal history of nicotine dependence; Z95.1 Presence of aortocoronary bypass graft; Z79.01 Long term (current) use of anticoagulants
CPT/HCPCS: 99284; 93308; 80053; 83690; 83735; 84484; 85025; 93005

== ENCOUNTER → 2024-12-19 07:04 | Outpatient (REF) | payer OTHER, SELFPAY | LOC: HWRAD 07:04 | PROVIDERS: ATTENDING PHYSICIAN Family Medicine | DX: M25.552 Pain in left hip (principal) | CPT/HCPCS: 73502 ==

== ENCOUNTER 2025-01-23 11:03 | Emergency (ER) | payer OTHER, SELFPAY ==
[2025-01-23 11:10] VITALS: BP 136/83
--- NOTE | 2025-01-23 11:28 | ED.GENMED ---
History of Present Illness
General
Chief Complaint: Chest Pain
Source: patient and records
Exam Limitations: none
Time Seen by Provider: 01/23/25 11:19
Nursing documentation reviewed up to this point in time: agreed with
History of Present Illness
History of Present Illness:
64-year-old female with a past medical history of hypertension, hyperlipidemia, CAD status post CABG, CHF who presents to the emergency department for evaluation of chest pain. Patient reports symptoms started last night and have been intermittent
since then. She reports a squeezing sensation in the chest. Does not radiate. No clear triggering or relieving factors noted. This morning she said she had associated fatigue and was not feeling herself and given these chest pains she decided to
come to the ER to be evaluated. Denies any shortness of breath. No nausea, vomiting, diaphoresis. No swelling or pain in the legs. Reports compliance with all medications including Eliquis and Plavix. Of note: she follows with Dr. Gonzalez for
cardiology. She had ACS with multivessel CAD requiring CABG with Dr. Coe on 11/05/2023. She had an admission in July 2024 for for NSTEMI, had cardiac cath with Dr. Feliciano 08/08/2024--elevated troponin thought to be secondary to Takotsubo
cardiomyopathy.
Past History
Past History
ED Past Medical History: CAD, CHF, HTN, Hypercholesterolemia, CA and Other (ADHD, osteoporosis, ischemic cardiomyopathy)
ED Past Surgical History: Appendectomy, Cardiac (Quad Bypass, Ventricular septal defect, ), Orthopedic (Left shoulder replacement) and Other (cataracts, )
Patient has exhibited threatening behavior?: No
Social History
Tobacco: Former smoker
Alcohol: None
Drug: Marijuana
Personal: Single
Living: alone
Review of Systems
Review of Systems
All Other Systems: ROS reviewed and negative except as documented in HPI and ROS
Constitutional: Reports fatigue; Denies fever
Cardiac: Reports chest pain; Denies diaphoresis, palpitations or syncope
ABD/GI: Denies abdominal pain, nausea or vomiting
: Denies flank pain
Musculoskeletal: Denies neck pain or back pain
Neurological: Denies headache
Phy Exam
Physical Exam
Physical Exam:
General: Awake, alert, oriented x3; no acute distress
Head: Normocephalic, atraumatic
Eyes: Conjunctiva normal, sclera anicteric
Throat: Airway intact, handling secretions
Neck: Trachea midline, supple without meningismus
Lungs: Clear to auscultation bilaterally, no wheezing, rales, rhonchi
Heart: Regular rate and rhythm, no murmurs, gallops, or rubs
Abd: Soft, non distended, nontender
Neuro: No gross deficits
Skin: no rash in area of concern
Extremities: No edema in extremities, equal pulses in all extremities
Scores
Heart Failure Risk
Heart Failure Risk Score: Not Applicable
Heart Score for Chest Pain Patients
STEMI patient?: No
History: Moderately Suspicious
ECG: Normal
Age: >45 - <65 years
Risk Factors: >/= 3 Risk Factors or History of CAD
Troponin: </= Normal Limit
Heart Score for Chest Pain Patients: 4
Heart Score Risk: 20.3% MACE over next 6 weeks
Withdrawal Assessment of Alcohol
Withdrawal Assessment Completed?: Not applicable
Course
Orders/Labs/Results
Orders:
Orders
01/23/25 11:06
Electrocardiogram (*1) Urgent
Reason for Study: Chest Pain
EKG- Treatment ONCE
01/23/25 11:20
CR Chest - 2 Views Urgent
Comment:
Reason For Exam: cp
01/23/25 11:37
Complete Blood Count/With Diff Urgent
Comprehensive Metabolic Panel Urgent
PTT Urgent
Prothrombin Time Urgent
Troponin I Urgent
01/23/25 13:17
CARDIOLOGY CONSULT Urgent
Consulting Provider: John Evangelista
Was physician already notified: Yes
Abnormal Lab Results
01/23/25
11:37
RBC 3.94 L 10^6/uL
(4.20-5.40)
MCH 32.7 H pg
(27.0-31.0)
Absolute Monos (auto) 0.7 H 10^3/uL
(0.1-0.6)
PT 14.8 H Sec
(11.4-14.6)
APTT 37.7 H Sec
(23.4-35.0)
01/23/25 11:37
01/23/25 11:37
Vital Signs
Initial and Last Documented VS:
Initial Vital Signs
Temp Pulse Resp BP Pulse Ox
36.5 C 74 18 136/83 97
01/23/25 11:10 01/23/25 11:10 01/23/25 11:10 01/23/25 11:10 01/23/25 11:10
Last Documented Vital Signs
Temp Pulse Resp BP Pulse Ox
36.5 C 63 16 136/83 97
01/23/25 11:10 01/23/25 11:39 01/23/25 11:39 01/23/25 11:10 01/23/25 11:40
MDM/Problems Addressed
Differential Diagnosis Includes:
ACS, GERD, costochondritis; very low clinical suspicion for PE or acute aortic dissection in my judgment no further diagnostic evaluation indicated at this point for these diagnoses
MDM/Problems Addressed:
64-year-old female presents for evaluation of intermittent chest pains associate with fatigue and feeling off. Significant recent cardiac history. Follows with Dr. Gonzalez for cardiology. Currently chest pain-free. Vitals and exam as above.
EKG shows nonspecific T wave abnormalities, no STEMI. Plan to place an IV check labs including a CBC and a CMP, troponin. Check chest x-ray. Will monitor on telemetry and reassess after the above.
Labs reviewed: CBC and CMP unremarkable. Troponin undetectable x 1. Will check serial repeat. Chest x-ray reviewed by me shows no acute disease. Case discussed with cardiology for consultation given cardiac history�reviewed cardiac cath report
from July she did have some narrowing of bypass graft at that time.
Cardiology evaluated at bedside�will repeat troponin if negative we will pursue outpatient workup. Patient comfortable with this plan. Monitor pending repeat troponin.
Chronic conditions affecting care:
CAD
*Pulse Oximetry
Patient hypoxic: no
*EKG
Interpreted by ED Provider?: Yes
Comparison EKG: changes noted (Nonspecific T wave abnormalities inferior leads)
Heart Rate: 66
Rate: normal
Rhythm: sinus
[place]: normal axis
Interval: normal interval
QRS Pattern: right bundle branch block (Incomplete)
Ischemia: other (Nonspecific T wave abnormalities)
*Critical Care Note
Total Time (30-74mins, 75-104mins- exclusive of procedures): Not Applicable
Data Reviewed
Review of Other/Old Records Reveals: Labs, Records and Testing
Source: patient and records
Patient Management
Discussion with other providers: Delicatessen Slicer (Discussed with cardiology)
ED Attending Note
-
Portions of this chart may have been created with voice recognition software.� Occasional wrong word or��sound alike� substitutions may have occurred due to the inherent limitations of voice recognition software.
Discharge Plan
Departure
Patient with high blood pressure during this ER visit?: No
Discharge Problem:
Chest pain
Instructions: Chest Pain CBC Follow Up
Prescriptions:
No Action
gabapentin 300 mg Capsule
300 mg PO BID
cholecalciferol (vitamin D3) [Vitamin D3] 25 mcg (1,000 unit) Capsule
1,000 unit PO DAILY
clopidogrel 75 mg Tablet
75 mg PO DAILY Qty: 30 1RF
Eliquis 5 mg Tablet
5 mg PO BID
lorazepam 1 mg Tablet
1 mg PO HSPRN PRN (Reason: anxiety/sleep)
Patient Comments:
pdmp patient sampler pickup on 08/23/24 #30
amiodarone 200 mg Tablet
200 mg PO BID
ezetimibe [Zetia] 10 mg Tablet
10 mg PO QPM
rosuvastatin 40 mg Tablet
40 mg PO QPM
Repatha SureClick 140 mg/mL Pen Injector
140 mg SC Q2W
dapagliflozin propanediol [Farxiga] 10 mg tablet
10 mg PO DAILY
Theragen Tablet
1 tab PO DAILY
spironolactone 25 mg tablet
12.5 mg PO DAILY
sucralfate [Carafate] 1 gram Tablet
1 g PO TIDPRN PRN (Reason: stoamch issues)
bisacodyl [Dulcolax (bisacodyl)] 10 mg Suppository
10 mg [place] DAILYPRN PRN (Reason: constipation)
Entresto 24-26 mg tablet
1 tab PO BID
Referrals:
Ivette Mandujano MD [Family Provider] -
Juliet Gonzalez MD [Active] - Call in 1-3 days for appt
Activity Restrictions/Additional Instructions:
Thank you for visiting the Emergency Department at [facility].
1. Please schedule a follow up appointment as directed. Call first thing tomorrow morning to make an appointment.
2. If indicated, please take your medications as instructed and indicated on discharge paperwork.
3. If any of your symptoms do not improve, or persist, or become more severe within 6-12 hours, please return to the emergency department for further care.
4. Please return to the emergency department if you develop a headache, neck pain/stiffness, fever greater than 100.4F, chest pain, shortness of breath, persistent nausea, vomiting, slurred speech, difficulty walking, numbness/tingling, weakness,
signs of infection or any other symptoms that are worrisome to you.
Please call [phone] if you have any questions.
Interventions
Interventions:
*Risk Screen - Suicide Last Done: 01/23/25 11:10
*General Assessment Last Done: 01/23/25 11:10
*Neglect/Abuse Screening Last Done: 01/23/25 11:10
*ED- Fall Risk Assessment Last Done: 01/23/25 11:40
*ED COVID-19 Vaccine History Last Done: 01/23/25 11:40
ED- Cardiac Assessment Last Done: 01/23/25 11:40
Discharge Date and Time
Print Language: FAROESE
[2025-01-23 11:37] VITALS: BMI 23.3
[2025-01-23 11:50] LABS: % Basophils 0.7 % (0-2); % Eosinophils 1.1 % (0-6); % Immature Granulocytes 0.3 % (0-0.5); % Lymphocytes 30.4 % (20.5-51.1); % Monocytes 7.3 % (1.7-9.3); % Neutrophils 60.2 % (42.2-75.2); Absolute Basophils 0.1 10^3/uL (0-0.2); Absolute Eosinophils 0.1 10^3/uL (0-0.7); Absolute Lymphocytes 2.8 10^3/uL (1.2-3.4); Absolute Monocytes 0.7 10^3/uL (0.1-0.6); Absolute Neutrophils 5.5 10^3/uL (1.4-6.5); Hematocrit 37.9 % (37.0-47.0); Hemoglobin 12.9 g/dL (12.0-16.0); Mean Corpuscular Hgb 32.7 pg (27.0-31.0); Mean Corpuscular Volume 96.2 fL (81.0-99.0); Mean Platelet Volume 9.8 fL (7.4-10.4); Nucleated Red Blood Cells % 0 %; Platelet Count 292 10^3/uL (130-400); Red Blood Cell Count 3.94 10^6/uL (4.20-5.40); Red Cell Dist. Width 13.9 % (11.5-14.5); White Blood Cell Count 9.2 10^3/uL (4.8-10.8)
[2025-01-23 12:03] LABS: INR 1.13; PT 14.8 Sec (11.4-14.6)
[2025-01-23 12:04] LABS: APTT 37.7 Sec (23.4-35.0)
[2025-01-23 12:10] LABS: ALT (SGPT) 21 U/L (0-35); AST (SGOT) 25 U/L (14-36); Albumin 4.2 g/dl (3.5-5.0); Alkaline Phosphatase 80 U/L (38-126); Blood Urea Nitrogen 17 mg/dl (7-17); Calcium 9.6 mg/dl (8.4-10.2); Carbon Dioxide 25 mmol/L (22-30); Chloride 107 mmol/L (98-107); Estimated Creatinine Clearance 76 ml/min; Glucose 97 mg/dl (70-99); Potassium 4.5 mmol/L (3.5-5.1); Sodium 139 mmol/L (135-145); Total Bilirubin 0.5 mg/dl (0.2-1.3); Total Protein 6.6 g/dl (6.3-8.2); eGFR > 60.00
[2025-01-23 12:18] LABS: Troponin I < 0.012 ng/ml
--- NOTE | 2025-01-23 13:19 | CON.CAR ---
Addendum entered and electronically signed by John Evangelista MD 01/23/25 14:38:
64 yo female with PMH of CAD, NV, CABG 10/2023 presents to ED with chest pain. It is a squeezing chest pain at rest near left shoulder. It is not similar to prior pain with NV (neck/jaw). She also exercises regularly on elliptical and rowing
machine without angina. Exam with RRR, no murmurs, no edema. TnI <0.012. EKG: NSR, iRBBB, nonspecific T wave abnl.
Chest pain seems atypical. We discussed inpatient vs outpatient testing strategy. We decided that if second troponin is normal, we will arrange for outpatient follow up with echo and nuclear stress.
Original Note:
Consultation
Consultation Request
Date/Time Consultation Requested: 01/23/25 1311
Date/Time Consultation Performed: 01/23/25 1319
Requesting Provider: Dr. Kimball
Performing Provider: Carina TREVINO for Dr. Evangelsita
Reason for Consultation: CP
Medical History
-
Chief Complaint: CP
History of Present Illness:
64 y/o female (patient of Dr. Gonzalez) with hypertension, dyslipidemia, ADHD, former smoker (quit 10/2023), NSTEMI s/p CABG x 4 (OLVERA-LAD, SVG-OM1, SVG-OM2, and SVG-distal RCA 10/2023), ICM EF 25-30% recovered to 50%, PAF on Eliquis, then Takotsubo
CM EF 15-20 07/2024, recovered to EF 50-55% 08/2024 who is here for CP. Briefly, over the past two weeks she has had an intermittent chest squeeze. It is left-sided, but can be different spots on that left side. It lasts seconds and is not
associated with anything particular. She has remained active with 160 minutes of exercise per week, including rowing 20 minutes per day. She does does get any CP with this. She denies any SOB. Her pain prior to CABG included neck pain. She has not
had that. She is in no distress at the time of my assessment and looks well in the ER.
Past Medical History
Past Medical History: Arrhythmias, CAD, HTN, Hypercholesterolemia and Other (as above)
Past Surgical History: Cardiac and Orthopedic (shoulder surgery)
Social History
Tobacco: Former Smoker
Alcohol: None
Family History
Family History: CAD
Allergies / Home Medications
Allergy/AdvReac Type Severity Reaction Status Date / Time
mold Allergy Swelling/swollen Verified 05/25/24 17:46
joints
Penicillins Allergy Anaphylaxis Verified 05/24/24 13:05
at 9 years
old
requiring
intubation
�Medication �Instructions �Recorded �Confirmed �Type
cholecalciferol (vitamin D3) 25 1,000 unit PO DAILY Supplement 11/01/23 08/29/24 History
mcg (1,000 unit) capsule (Vitamin
D3)
gabapentin 300 mg capsule 300 mg PO BID pain/muscle 11/01/23 08/29/24 History
clopidogrel 75 mg tablet 75 mg PO DAILY Heart 11/09/23 08/29/24 Rx
disease/condition #30 tabs
apixaban 5 mg tablet (Eliquis) 5 mg PO BID Blood Clot 01/30/24 08/29/24 History
Prevention/Tx
lorazepam 1 mg tablet 1 mg PO HSPRN PRN anxiety/sleep 01/30/24 08/29/24 History
amiodarone 200 mg tablet 200 mg PO BID Arrhythmia 05/22/24 08/29/24 History
evolocumab 140 mg/mL subcutaneous 140 mg SC Q2W High Cholesterol 05/22/24 08/29/24 History
pen injector (Repatha SureClick)
ezetimibe 10 mg tablet (Zetia) 10 mg PO QPM High Cholesterol 05/22/24 08/29/24 History
rosuvastatin 40 mg tablet 40 mg PO QPM High Cholesterol 05/22/24 08/29/24 History
dapagliflozin propanediol 10 mg 10 mg PO DAILY Heart Failure 08/08/24 08/29/24 History
tablet (Farxiga)
bisacodyl 10 mg rectal suppository 10 mg [place] DAILYPRN PRN constipation 08/29/24 08/29/24 History
(Dulcolax (bisacodyl))
sacubitril 24 mg-valsartan 26 mg 1 tab PO BID heart failure 08/29/24 08/29/24 History
tablet (Entresto)
spironolactone 25 mg tablet 12.5 mg PO DAILY heart condition/BP 08/29/24 08/29/24 History
sucralfate 1 gram tablet (Carafate) 1 g PO TIDPRN PRN stoamch issues 08/29/24 08/29/24 History
therapeutic multivitamin 1 tab PO DAILY Supplement 08/29/24 08/29/24 History
Review of Systems
-
History Source: Patient
All other systems: Negative unless noted
Cardiac: Chest Pain
Physical Exam
Vital Signs
Temp Pulse Resp BP Pulse Ox
97.7 F 63 16 136/83 97
01/23/25 11:10 01/23/25 11:39 01/23/25 11:39 01/23/25 11:10 01/23/25 11:40
Lab Results
01/23/25 11:37
01/23/25 11:37
Troponin I < 0.012 ng/ml 01/23/25 11:37
Physical Exam
General: Well Developed, Well Nourished and No Apparent Distress
HEENT: Normocephalic and Anicteric
Respiratory: Clear and Non Labored Respirations
Cardiac: Regular Rhythm
Musculoskeletal: No Edema
Skin: Warm and Dry
Neuro: AO x 3
Psych: Calm
Impression / Plan
-
Chest pain:
-sounds atypical, but with her history would check another trop. If normal, can plan for OP follow-up (echo, stress, OV- office to call in that case)
-EKG stable from previous OP EKG (10/13/24) to my review
CAD with hx CABG:
-continue medical therapy
-plan as above
PAF:
-stable in SR
-continue Eliquis
Previous ICM, and later Takotsubo, now with recovered EF:
-on Entresto, Spironolactone, and Farxiga
-per OP chart this is max tolerated GDMT
-will arrange for echo
Data Reviewed
-
EKG: Tracing Personally Visualized and interpreted
Radiology: Report Reviewed by me (CXR: Linear foci in the left lower lobe are likely atelectasis. Hyperaeration does suggest changes of COPD)
Medical Tests (Nuc Med, Echo etc): Report Reviewed by me (echo 08/29/24: Mild global hypokinesis. LV ejection fraction is 50-55% by Monsalve's method of discs. Normal right ventricular size and function. No pericardial effusion. Valves were not
assessed to any significant degree. No or MS. Aortic valve sclerosis noted.)
Labs: Labs Reviewed by me
[2025-01-23 14:37] VITALS: BP 123/80
[2025-01-23 15:00] VITALS: BP 121/70
[2025-01-23 15:15] LABS: Troponin I < 0.012 ng/ml
[2025-01-23 15:30] VITALS: BP 121/70
--- NOTE | 2025-01-23 15:35 | EDRN ---
Reviewed discharge instructions with patient. Verbalized understanding. Ambulated with steady gait to the lobby.
== END 2025-01-23 15:40 | disposition home or self-care (01) ==
LOC: EMR 11:03
PROVIDERS: CONSULT PHYSICIAN Internal Medicine; EMERGENCY PHYSICIAN Emergency Medicine; FAMILY PHYSICIAN Family Medicine
DX: R07.89 Other chest pain (principal); R53.83 Other fatigue; I11.0 Hypertensive heart disease with heart failure; I50.9 Heart failure, unspecified; I25.10 Atherosclerotic heart disease of native coronary artery without angina pectoris; E78.00 Pure hypercholesterolemia, unspecified; F90.9 Attention-deficit hyperactivity disorder, unspecified type; M81.0 Age-related osteoporosis without current pathological fracture; I48.0 Paroxysmal atrial fibrillation; I25.5 Ischemic cardiomyopathy; I51.81 Takotsubo syndrome; I45.10 Unspecified right bundle-branch block; I25.2 Old myocardial infarction; Z95.1 Presence of aortocoronary bypass graft; Z96.612 Presence of left artificial shoulder joint; Z87.891 Personal history of nicotine dependence; Z79.01 Long term (current) use of anticoagulants; Z88.0 Allergy status to penicillin; Z91.048 Other nonmedicinal substance allergy status
CPT/HCPCS: 99285; 71046; 80053; 84484; 85025; 85610; 85730; 93005

== ENCOUNTER → 2025-02-03 07:23 | Outpatient (REF) | payer OTHER, SELFPAY | LOC: HWRCS 07:23 | PROVIDERS: ATTENDING PHYSICIAN Internal Medicine Cardiovascular Disease; FAMILY PHYSICIAN Family Medicine | DX: R07.9 Chest pain, unspecified (principal) | CPT/HCPCS: 78452; 93017; A9500; J2785 ==

== ENCOUNTER → 2025-02-06 07:03 | Outpatient (REF) | payer OTHER, SELFPAY | LOC: HWRCS 07:03 | PROVIDERS: ATTENDING PHYSICIAN Internal Medicine Cardiovascular Disease; FAMILY PHYSICIAN Family Medicine | DX: R07.9 Chest pain, unspecified (principal) | CPT/HCPCS: 93306 ==

== ENCOUNTER 2025-02-20 17:08 | Inpatient (IN) | payer OTHER, SELFPAY ==
[2025-02-20] VITALS (13 sets, daily range): BP systolic 107–152; BP diastolic 54–101; BMI 24.4; BMI 24.3
[2025-02-20 10:57] LABS: % Basophils 0.7 % (0-2); % Immature Granulocytes 0.2 % (0-0.5); % Lymphocytes 32.6 % (20.5-51.1); % Monocytes 6.4 % (1.7-9.3); % Neutrophils 58.1 % (42.2-75.2); Absolute Basophils 0.1 10^3/uL (0-0.2); Absolute Eosinophils 0.2 10^3/uL (0-0.7); Absolute Lymphocytes 2.7 10^3/uL (1.2-3.4); Absolute Monocytes 0.5 10^3/uL (0.1-0.6); Absolute Neutrophils 4.8 10^3/uL (1.4-6.5); Hematocrit 37.9 % (37.0-47.0); Hemoglobin 12.8 g/dL (12.0-16.0); Mean Corp Hgb Conc. 33.8 g/dL (33.0-37.0); Mean Corpuscular Hgb 32.4 pg (27.0-31.0); Mean Corpuscular Volume 95.9 fL (81.0-99.0); Mean Platelet Volume 9.9 fL (7.4-10.4); Nucleated Red Blood Cells % 0 %; Platelet Count 327 10^3/uL (130-400); Red Blood Cell Count 3.95 10^6/uL (4.20-5.40); Red Cell Dist. Width 13.7 % (11.5-14.5); White Blood Cell Count 8.2 10^3/uL (4.8-10.8)
[2025-02-20 11:21] LABS: ALT (SGPT) 20 U/L (0-35); AST (SGOT) 29 U/L (14-36); Albumin 4.6 g/dl (3.5-5.0); Alkaline Phosphatase 64 U/L (38-126); Blood Urea Nitrogen 21 mg/dl (7-17); Calcium 9.8 mg/dl (8.4-10.2); Carbon Dioxide 24 mmol/L (22-30); Chloride 108 mmol/L (98-107); Estimated Creatinine Clearance 57 ml/min; Glucose 100 mg/dl (70-99); Potassium 4.8 mmol/L (3.5-5.1); Sodium 140 mmol/L (135-145); Total Bilirubin 0.4 mg/dl (0.2-1.3); Total Protein 6.9 g/dl (6.3-8.2); eGFR > 60.00
--- NOTE | 2025-02-20 11:31 | ED.GENMED ---
History of Present Illness
General
Chief Complaint: Cardiac Symptoms
Source: patient
Exam Limitations: none
Time Seen by Provider: 02/20/25 11:00
Nursing documentation reviewed up to this point in time: agreed with
History of Present Illness
History of Present Illness:
64 yo F CABG x4 11/18, takotsubo's 08/18
paulina siddiqui
PAF on eliquis, plavix
recent episodes of fleeting CP so she had outpatient stress test on 02/03 showing LAD ischemia; - she was put on extended release nitroglycerin to use daily and i think the plan is to cath her at some point but they didn't want to 2 weeks ago;
pt says dr siddiqui said to come in for any recurrent episodes
woke up at 3 am with chest tightness and neck discomfort, mimicking her ID last year
she still has mild neck 'tightness' but is not have cp currently;
02/02 rated
not worse with exertion
said she tried to distract herself from it
but ultimately thought she ought to get checked out
she would have driven here, but says that she got 'in trouble' last time so she called 911
Past History
Past History
ED Past Medical History: CAD, CHF, HTN, Hypercholesterolemia, ID and Other (ADHD, osteoporosis, ischemic cardiomyopathy)
ED Past Surgical History: Appendectomy, Cardiac (Quad Bypass, Ventricular septal defect, ), Orthopedic (Left shoulder replacement) and Other (cataracts, )
Patient has exhibited threatening behavior?: No
Social History
Tobacco: Former smoker
Alcohol: None
Drug: Marijuana
Personal: Single
Living: alone
Review of Systems
Review of Systems
Allergies reviewed?: Yes
All Other Systems: Not applicable
Phy Exam
Physical Exam
Physical Exam:
GENERAL: Alert , in no apparent distress; looks very well
EYE: pupils equal and reactive
NECK: Supple
ENT: o/p clr, mmm.
CARDIAC: bradycardia, no edema
LUNGS: Clear breath sounds bilaterally, no acute respiratory distress, no wheezes/rales/rhonchi
ABDOMEN: Soft, without focal tenderness, no r/g, no cvat, normal bowel sounds
NEUROLOGICAL: Alert and oriented, no focal neuro deficits
SKIN: Warm and dry, skin intact.
MUSCULOSKELETAL: No edema, well perfused. neg ayanna's sign
PSYCH: Normal and appropriate interaction.
Course
Orders/Labs/Results
Orders:
Orders
02/20/25 10:29
Electrocardiogram (*1) Urgent
Reason for Study: Other
Other Reason for Exam: cardiac symptoms
02/20/25 10:30
EKG- Treatment ONCE
02/20/25 10:49
Complete Blood Count/With Diff Urgent
Comprehensive Metabolic Panel Urgent
Troponin I Urgent
02/20/25 12:00
Diltiazem 125 mg/125 ml Nss [Cardizem] 125 mg in 125 ml IV PER PROTOCOL
Initial dose in mg/hr, then titrate:: 5
Titrate to keep:: Heart rate 80-100 bpm
Titrate by mg/hr:: 5 mg/hr
Frequency of titrations (minutes):: 15
Maximum dose in mg/hr:: 15
02/20/25 12:12
Consult Cardiology [CARDIOLOGY CONSULT] Urgent
Consulting Provider: Bert Billingsley
Was physician already notified: Yes
Nitroglycerin Sublingual [Nitrostat (Sublingual)] 0.4 mg SL NOW STA
02/20/25 12:13
Electrocardiogram (*1) Urgent
Reason for Study: Chest Pain
EKG- Treatment ONCE
02/20/25 12:41
Lorazepam [Ativan] 0.5 mg PO NOW STA
02/20/25 13:55
Troponin I Urgent
02/20/25 14:41
Aspirin Chewable [Low Strength Aspirin] 324 mg PO NOW STA
02/20/25 16:06
Admit/Transfer Patient As Directed
Co-Sign Provider:
Level of Care: Inpatient admission
Assign to:: IVU
Physician / Group: macey robles
Diagnosis: neck pain w abn stress test conc acs
Reason for Hospitalization: neck pain w abn stress test conc acs
Expected length of stay greater than two midnights?: Yes
ELOS- Estimated Length of Stay in days: 4
I certify the patient meets the requirements for IP care: Yes
Code Status As Directed
Resuscitation Status: Full Code
02/20/25 16:10
PRN Pain Medication Management As Directed
May give lesser potent ordered pain med per pt: Yes
preference::
Protocol:: Medication orders for pain may be administered in a
manner that supports deferring to patient preference
when the pt is:
- Requesting an ordered lesser potent pain medication.
Least to most potent pain medications are defined
as: acetaminophen < NSAID < tramadol < opioids
(morphine, oxycodone, hydromorphone).
- Requesting a lesser dose of the same medication IF
ORDERED.
- Requesting a less intrusive route of administration
if both routes are prescribed by the provider (PO <
IV).
02/20/25 16:25
Heparin 3,600 units IV NOW STA
Heparin Protocol- PTT Orders As Directed
PTT per Heparin protocol: -Obtain CBC and baseline PTT - if not already collected.
-Obtain PTT 6 hours from start of infusion. Then, every 6 hours until 2 consecutive
PTT's are therapeutic. Then, PTT Daily.
-With each rate change, obtain PTT every 6 hours until 2 consecutive PTT's are
therapeutic. Then, PTT Daily.
Notify MD As Directed
Notify physician if: PTT is greater than or equal to 200.
02/20/25 16:30
Heparin 66726 Units/250 ml 25,000 units in 250 ml IV PER PROTOCOL
Weight to be used for heparin protocol in kilograms (kg):: 60.5
Protocol:: Cardiac Tx/Acute Coronary
PTT Goal Range to be used:: PTT 73 to 111 seconds
Order type:: Initial
INITIAL Infusion Dose (UNITS/KG/hr) & then follow protocol:: 12 units/kg/hr
Infusion Dose in UNITS/hr & then follow protocol (UNITS/hr):: 750
INFUSION RATE in mL/hr & then follow protocol (mL/hr):: 7.5
PTT less than or equal to 64 seconds:: Increase rate by 200 units/hr (+ 2 mL/hr)
PTT 64.1 to 72.9 seconds:: Increase rate by 100 units/hr (+ 1 mL/hr)
PTT 73 to 111 seconds:: Target Range. No change in rate.
PTT 111.1 to 130.9 seconds:: Decrease rate by 100 units/hr (- 1 mL/hr)
PTT 131 to 199.9 seconds:: HOLD for 1 hr. Then decrease rate by 200 units/hr (- 2 mL/hr)
PTT greater than or equal to 200 seconds:: HOLD for 2 hrs & Notify Provider. Then decrease by 200 units/hr (-
2 mL/hr)
Lab follow-up:: Each change, PTT q6h until 2 consecutive are therapeutic. Then PTT
daily.
02/20/25 16:41
PTT Urgent
Comment: Obtain baseline before beginning heparin infusion if not already collected
02/20/25 18:00
EKG [Electrocardiogram (*1)] Urgent
Reason for Study: Chest Pain
Troponin I Urgent
02/21/25 06:00
Echo Follow-up Study IN AM
Reason for Study: hx takotsubo CM
Comment: first thing in AM please- patient for cath
NPO
Allow oral meds: Yes
Allow clear liquids: No
02/21/25 08:00
Aspirin Chewable [Low Strength Aspirin] 81 mg PO DAILY
02/22/25 06:00
Complete Blood Count/No Diff Q2D
Comment: Notify MD if platelet count is <130,000 or decreases by 50% from baseline
02/24/25 06:00
Complete Blood Count/No Diff Q2D
Comment: Notify MD if platelet count is <130,000 or decreases by 50% from baseline
02/26/25 06:00
Complete Blood Count/No Diff Q2D
Comment: Notify MD if platelet count is <130,000 or decreases by 50% from baseline
02/28/25 06:00
Complete Blood Count/No Diff Q2D
Comment: Notify MD if platelet count is <130,000 or decreases by 50% from baseline
03/02/25 06:00
Complete Blood Count/No Diff Q2D
Comment: Notify MD if platelet count is <130,000 or decreases by 50% from baseline
03/04/25 06:00
Complete Blood Count/No Diff Q2D
Comment: Notify MD if platelet count is <130,000 or decreases by 50% from baseline
03/06/25 06:00
Complete Blood Count/No Diff Q2D
Comment: Notify MD if platelet count is <130,000 or decreases by 50% from baseline
03/08/25 06:00
Complete Blood Count/No Diff Q2D
Comment: Notify MD if platelet count is <130,000 or decreases by 50% from baseline
Abnormal Lab Results
02/20/25
10:49
RBC 3.95 L 10^6/uL
(4.20-5.40)
MCH 32.4 H pg
(27.0-31.0)
Chloride 108 H mmol/L
(98-107)
BUN 21 H mg/dl
(7-17)
Glucose 100 H mg/dl
(70-99)
02/20/25 10:49
02/20/25 10:49
Vital Signs
Initial and Last Documented VS:
Initial Vital Signs
Temp Pulse Resp BP Pulse Ox
37.1 C 65 18 148/101 96
02/20/25 10:33 02/20/25 10:33 02/20/25 10:33 02/20/25 10:33 02/20/25 10:33
Last Documented Vital Signs
Temp Pulse Resp BP Pulse Ox
37.1 C 68 13 147/88 96
02/20/25 10:33 02/20/25 15:30 02/20/25 15:30 02/20/25 15:00 02/20/25 15:30
MDM/Problems Addressed
Differential Diagnosis Includes:
ACS, nstemi,
MDM/Problems Addressed:
64 y/o F
h/o CAD cabg x 4 11/18, takotsubo 08/18
PAF on eliquis and plavix
here with neck tightness and ches tpain at 3 am
chest pain resolved, neck tighness persists
failed outpatient stress last week, has ischemic change to LAD
on nitro daily
here pain didn't improve with nitro
ekg unchnaged
trop neg
seen by cards, recommend admit to medicine, cath tomorrow
asa now
*Critical Care Note
Total Time (30-74mins, 75-104mins- exclusive of procedures): Not Applicable
ED Attending Note
-
Portions of this chart may have been created with voice recognition software.� Occasional wrong word or��sound alike� substitutions may have occurred due to the inherent limitations of voice recognition software.
Discharge Plan
Departure
Patient Disposition: Admit
Date of Disposition: 02/20/25
Time of Disposition: 14:39
Admit to: Telemetry
Presentation/result/management discussed w/ accepting MD/DO: Hospitalist
Condition: Fair
Covid-19: Not Applicable
Discharge Problem:
Chest pain
Prescriptions:
No Action
gabapentin 300 mg Capsule
300 mg PO BID
clopidogrel 75 mg Tablet
75 mg PO DAILY Qty: 30 1RF
Eliquis 5 mg Tablet
5 mg PO BID
lorazepam 1 mg Tablet
1 mg PO HSPRN PRN (Reason: anxiety/sleep)
ezetimibe [Zetia] 10 mg Tablet
10 mg PO QPM
rosuvastatin 40 mg Tablet
40 mg PO QPM
Repatha SureClick 140 mg/mL Pen Injector
140 mg SC Q2W
dapagliflozin propanediol [Farxiga] 10 mg tablet
10 mg PO DAILY
Theragen Tablet
1 tab PO DAILY
spironolactone 25 mg tablet
25 mg PO DAILY
Entresto 24-26 mg tablet
1 tab PO BID
acetaminophen [Tylenol] 325 mg Tablet
650 mg PO QID
isosorbide mononitrate [Imdur] 30 mg Tablet Extended Release 24 Hr
30 mg PO DAILY
duloxetine [Cymbalta] 20 mg Capsule,Delayed Release(Dr/Ec)
40 mg PO DAILY
Referrals:
Ivette Mandujano MD [Family Provider] -
Interventions
Interventions:
*Risk Screen - Suicide Last Done: 02/20/25 10:33
*General Assessment Last Done: 02/20/25 10:33
*Neglect/Abuse Screening Last Done: 02/20/25 10:33
*ED- Fall Risk Assessment Last Done: 02/20/25 11:01
ED- Pulmonary Assessment Last Done: 02/20/25 11:01
ED- Cardiac Assessment Last Done: 02/20/25 11:01
Discharge Date and Time
Print Language: FRENCH
[2025-02-20 11:32] LABS: Troponin I < 0.012 ng/ml
[2025-02-20] MEDS: NITROSTAT (SUBLINGUAL) 0.4 MG SL (12:17)
[2025-02-20] MEDS: ATIVAN 0.5 MG PO (12:51)
--- NOTE | 2025-02-20 12:54 | CON.CAR ---
Addendum entered and electronically signed by Bert Billingsley MD 02/20/25 16:28:
I saw and examined the patient.
The OPEN SHANK COVERER's note was reviewed and I agree with the note.
Comment: Complex patient with concerning CP syndrome despite escalated medical therapy as outpatient and recent positive stress test in a distribution with known CAD. Discussed with Dr. Arrieta and Dr. Gonzalez and both agree with proceeding to
catheterization and likely revascularization.
Addendum entered and electronically signed by URIEL Johns 02/20/25 15:29:
Dr. Billingsley is raisin separator operator seeing patient in collaboration with me.
Original Note:
Consultation
Consultation Request
Date/Time Consultation Requested: 02/20/25 1212
Date/Time Consultation Performed: 02/20/25 1254
Requesting Provider: Hattie VAN
Performing Provider: Carina TREVINO for Dr. Billingsley
Reason for Consultation: chest discomfort
Medical History
-
Chief Complaint: chest discomfort
History of Present Illness:
64 y/o female (patient of Dr. Gonzalez) with hypertension, dyslipidemia, ADHD, former smoker (quit 10/2023), NSTEMI s/p CABG x 4 (OLVERA-LAD, SVG-OM1, SVG-OM2, and SVG-distal RCA 10/2023), ICM EF 25-30% recovered to 50%, then Takotsubo CM EF 15-20%
07/2024, recovered to EF 50-55% 08/2024, and PAF on Eliquis who is here for evaluation of throat/jaw pain that is reminiscent of her symptoms prior to [place] in the past. She woke up around 3 AM alarmed and not feeling right. She stayed up and tried to
calm herself. She developed the throat/jaw tightness around 5 AM and it has been intermittent, but mostly present. EKG and trop are fine so far. She has received nitro and lorazepam, but symptoms are still present. BP is modestly elevated, but she
is visibly upset with some tearfulness during our interview- I provided emotional support to the best of my ability. Of note, she also has some atypical chest discomfort, which she has been having and came to the ER for about 1 month ago. Stress
test showed evidence for ischemia and isosorbide was initiated at that time.
Past Medical History
Past Medical History: Arrhythmias, CAD, HTN, Hypercholesterolemia and Other (as above)
Past Surgical History: Cardiac and Orthopedic (shoulder surgery)
Social History
Tobacco: Former Smoker
Alcohol: None
Family History
Family History: CAD
Allergies / Home Medications
Allergy/AdvReac Type Severity Reaction Status Date / Time
mold Allergy Swelling/swollen Verified 02/20/25 10:32
joints
Penicillins Allergy Anaphylaxis Verified 02/20/25 10:32
at 9 years
old
requiring
intubation
�Medication �Instructions �Recorded �Confirmed �Type
cholecalciferol (vitamin D3) 25 1,000 unit PO DAILY Supplement 11/01/23 08/29/24 History
mcg (1,000 unit) capsule (Vitamin
D3)
gabapentin 300 mg capsule 300 mg PO BID pain/muscle 11/01/23 08/29/24 History
clopidogrel 75 mg tablet 75 mg PO DAILY Heart 11/09/23 08/29/24 Rx
disease/condition #30 tabs
apixaban 5 mg tablet (Eliquis) 5 mg PO BID Blood Clot 01/30/24 08/29/24 History
Prevention/Tx
lorazepam 1 mg tablet 1 mg PO HSPRN PRN anxiety/sleep 01/30/24 08/29/24 History
amiodarone 200 mg tablet 200 mg PO BID Arrhythmia 05/22/24 08/29/24 History
evolocumab 140 mg/mL subcutaneous 140 mg SC Q2W High Cholesterol 05/22/24 08/29/24 History
pen injector (Repatha SureOumarick)
ezetimibe 10 mg tablet (Zetia) 10 mg PO QPM High Cholesterol 05/22/24 08/29/24 History
rosuvastatin 40 mg tablet 40 mg PO QPM High Cholesterol 05/22/24 08/29/24 History
dapagliflozin propanediol 10 mg 10 mg PO DAILY Heart Failure 08/08/24 08/29/24 History
tablet (Farxiga)
bisacodyl 10 mg rectal suppository 10 mg TN DAILYPRN PRN constipation 08/29/24 08/29/24 History
(Dulcolax (bisacodyl))
sacubitril 24 mg-valsartan 26 mg 1 tab PO BID heart failure 08/29/24 08/29/24 History
tablet (Entresto)
spironolactone 25 mg tablet 12.5 mg PO DAILY heart condition/BP 08/29/24 08/29/24 History
sucralfate 1 gram tablet (Carafate) 1 g PO TIDPRN PRN stoamch issues 08/29/24 08/29/24 History
therapeutic multivitamin 1 tab PO DAILY Supplement 08/29/24 08/29/24 History
Review of Systems
-
History Source: Patient
All other systems: Negative unless noted
Cardiac: Chest Pain
Musculoskeletal: Other (neck pain)
Physical Exam
Vital Signs
Temp Pulse Resp BP Pulse Ox
98.7 F 59 15 122/90 97
02/20/25 10:33 02/20/25 12:16 02/20/25 12:16 02/20/25 12:22 02/20/25 12:16
Lab Results
02/20/25 10:49
02/20/25 10:49
Troponin I < 0.012 ng/ml 02/20/25 10:49
Physical Exam
General: Well Developed, Well Nourished and No Apparent Distress
HEENT: Normocephalic and Anicteric
Respiratory: Clear and Non Labored Respirations
Cardiac: Regular Rhythm
Musculoskeletal: No Edema
Skin: Warm and Dry
Neuro: AO x 3
Psych: Calm
Impression / Plan
-
Throat and jaw pain:
-trop and EKG stable- another pending
-feels like previous anginal symptoms and with this and recent abnormal stress test, consider cath. Will discuss with team.
CAD with hx CABG:
-continue medical therapy
-recent stress test with evidence for ischemia as noted- w/u plan as above
PAF:
-stable in SR
-on Eliquis
Previous ICM, and later Takotsubo, now with recovered EF:
-on Entresto, Spironolactone, and Farxiga-per OP chart this is max tolerated GDMT
-recent echo with normal EF as described
Data Reviewed
-
EKG: Tracing Personally Visualized and interpreted (SB 58 BPM)
Radiology: Report Reviewed by me (CXR 01/23/25: Linear foci in the left lower lobe are likely atelectasis. Hyperaeration does suggest changes of COPD)
Medical Tests (Nuc Med, Echo etc): Report Reviewed by me (echo 02/06/25: Normal biventricular size and systolic function without regional wall motion abnormality. Estimated LVEF 55-60%. Mild/moderate mitral regurgitation. Aortic sclerosis
without stenosis.) and Other (02/03/25 nuc stress- Negative ECG for ischemia. Abnormal perfusion imaging with LAD territory ischemia. The exercise tolerance is above average for given age and gender. Stress Risk is moderate risk study. (DTS= +9,
however, did not reach target HR; Lexiscan symptoms replicated that of [place], EF 52)
Labs: Labs Reviewed by me
[2025-02-20 14:43] LABS: Troponin I < 0.012 ng/ml
[2025-02-20] MEDS: LOW STRENGTH ASPIRIN 324 MG PO (14:50)
--- NOTE | 2025-02-20 15:32 | HPS.HSE ---
Family Physician
-
Family Physician: Ivette Mandujano MD
Chief Complaint
-
Neck pain/tightness x 24 hours
History of Present Illness
64-year-old female who had outpatient stress test on 02/03 showing LAD ischemia she was put on extended release Imdur 30 mg daily with plan to take for heart cath at some point in the future. She woke up at 3 AM this morning with chest tightness
into her neck mimicking her [place] last year 2023 she still complaining of mild neck tightness but is not having current chest pain. She denies dyspnea on exertion. Her past medical history includes paroxysmal A-fib, CAD/NV,/CABG x 4 vessel,( NSTEMI
s/p CABG x 4 (OLVERA-LAD, SVG-OM1, SVG-OM2, and SVG-distal RCA 10/2023)ventricular septal defect repair CHF, ischemic cardiomyopathy Takotsubo 07/2024, HTN, HLD, osteoporosis, former smoker, marijuana use daily
Medical History
Past Medical History
Past Medical History: Reports Other
Additional Past Medical History:
CAD/NV/CABG X 4 VESSEL October 2023
Ejection fraction 25-30% October 2023
VSD repair
ischemic cardiomyopathy
CHF
HTN
HLD
ADHD
osteoporosis
former smoker
Past Surgical History: Reports Other
Additional Past Surgical History:
Appendectomy
CABG x 4 vessel-S/P CABG (OLVERA to LAD, SVG to OM1, SVG to OM2, SVG to dRCA) by Dr. Coe (11/05/2023).
VSD repair
Left shoulder replacement
Cataract extraction
Social History
Tobacco: Former Smoker
Alcohol: Former (Quit 20 years ago)
Drug: Marijuana (Smokes rolled joints)
Personal: Single
Living: Alone
Employment: Retired
Family History
Family History: Other (Mom NV multiple CABG age 80, father history of hypertension pacemaker from COVID age 84, 1 sister history of benign brain tumor, HLD, HTN, 1 sister HLD, HTN, 1 brother bipolar disorder)
Allergies / Home Medications
Allergies reflects when Allergies were last updated in [facility].
Home Medications with original date entered in [facility]
Allergy/Medication List:
Allergies
Allergy/AdvReac Type Severity Reaction Status Date / Time
mold Allergy Swelling/swollen Verified 02/20/25 10:32
joints
Penicillins Allergy Anaphylaxis Verified 02/20/25 10:32
at 9 years
old
requiring
intubation
Home Medications
gabapentin 300 mg capsule 300 mg PO BID pain/muscle 11/01/23
clopidogrel 75 mg tablet 75 mg PO DAILY Heart disease/condition #30 tabs 11/09/23
apixaban 5 mg tablet (Eliquis) 5 mg PO BID Blood Clot Prevention/Tx 01/30/24
lorazepam 1 mg tablet 1 mg PO HSPRN PRN anxiety/sleep 01/30/24
evolocumab 140 mg/mL subcutaneous pen injector (Repatha SureClick) 140 mg SC Q2W High Cholesterol 05/22/24
ezetimibe 10 mg tablet (Zetia) 10 mg PO QPM High Cholesterol 05/22/24
rosuvastatin 40 mg tablet 40 mg PO QPM High Cholesterol 05/22/24
dapagliflozin propanediol 10 mg tablet (Farxiga) 10 mg PO DAILY Heart Failure 08/08/24
sacubitril 24 mg-valsartan 26 mg tablet (Entresto) 1 tab PO BID heart failure 08/29/24
spironolactone 25 mg tablet 25 mg PO DAILY heart condition/BP 08/29/24
therapeutic multivitamin 1 tab PO DAILY Supplement 08/29/24
acetaminophen 325 mg tablet (Tylenol) 650 mg PO QID 02/20/25
duloxetine 20 mg capsule,delayed release (Cymbalta) 40 mg PO DAILY 02/20/25
isosorbide mononitrate 30 mg tablet,extended release 24 hr 30 mg PO DAILY 02/20/25
Review of Systems
-
History Source: Patient
A 12 point ROS was completed and negative except as noted: Yes
Constitutional: Denies Fever, Fatigue or Chills
EENT: Reports Other (Bilateral neck pain); Denies Sore Throat or Runny Nose
Respiratory: Denies Cough or Trouble Breathing
Cardiac: Denies Chest Pain, Diaphoresis, Palpitations or Syncope
Abdomen/GI: Denies Abdominal Pain, Nausea, Vomiting, Diarrhea, Constipated, Bloody Stools or Black Stools
: Denies Dysuria, Frequency, Flank Pain, Incontinence, Difficulty Voiding, Urgency or Bleeding
Musculoskeletal: Denies Joint Pain or Edema
Skin: Denies Itching or Rash
Neurological: Denies Dizzy or Headache
Endocrine: Reports No Symptoms
Hematologic/Lymphatic: Reports No Symptoms
Psych: Reports Calm
Physical Exam
Vital Signs
Vital Signs
Temp Pulse Resp BP Pulse Ox
98.7 F 70 15 147/88 95
02/20/25 10:33 02/20/25 15:00 02/20/25 15:00 02/20/25 15:00 02/20/25 14:45
Physical Exam
General: Conversant and Pain (On and off pressure in neck max 3 out of 10); No Fever or Chills
HEENT: NormoCephalic, Anicteric, Moist mucous membranes, PERRLA, [place] Conjunctivae, No Ptosis and Neck Nontender
Respiratory: Clear; No Wheezes, Rales or Rhonchi
Cardiac: S1/S2 and Regular Rhythm; No Murmur, Rub, Gallop or Peripheral Edema
GI: Soft, Non Tender, Non Distended, Normal Bowel Sounds and No Hepatosplenomegaly
Rectal: Deferred by Provider
Genito-urinary: Deferred by me
Musculoskeletal: No Clubbing, No Cyanosis and No Edema
Skin: Warm and Dry; No Rash or Jaundice
Neuro: AO x 3, No Motor Deficits, Nonfocal/grossly intact, Cranial Nerves Intact and No Sensory Deficits; No Slurred Speech, Facial Droop, Tremors or Sedated
Psych: Calm
Laboratory Results
-
02/20/25 10:49
02/20/25 10:49
Laboratory Results
Total Bilirubin 0.4 mg/dl (0.2-1.3) 02/20/25 10:49
AST 29 U/L (14-36) 02/20/25 10:49
ALT 20 U/L (0-35) 02/20/25 10:49
Alkaline Phosphatase 64 U/L (38-126) 02/20/25 10:49
Troponin I < 0.012 ng/ml 02/20/25 13:55
Impression/Plan
-
Impression/plan:
Admit to IVU
#Chest pain with failed outpatient stress test defect LAD
#CAD/NV/CABG x 4 vessel repair 11/14/2023 ( NSTEMI s/p CABG x 4 (OLVERA-LAD, SVG-OM1, SVG-OM2, and SVG-distal RCA 10/2023)
#Hx of ventricular septal defect repair
Troponin< 0.012 ,Second troponin < 0.012 will trend with EKG
- Consult cardiology
-Aspirin 324 mg now, continue aspirin 81 mg daily
-Continue Plavix 75 mg daily
-Hold Eliquis 5 mg twice daily last dose today 02/20/2025 in AM
-Cardiology to start IV heparin drip will transition to Eliquis post cath
- Patient given Ativan 0.5 mg in ER due to anxiety
- Patient given sublingual nitro 0.4 mg in ER
-Continue Imdur 30 mg daily
-Cardiac cath in a.m.
- N.p.o. after midnight
2D echo 02/06/2025: EF 55-60%, normal LVS LVSF, no wall abnormalities, mild to moderate MR
Nuclear stress test 02/03/2025:Negative ECG for ischemia.
Abnormal perfusion imaging with LAD territory ischemia.
The exercise tolerance is above average for given age and gender.
Stress Risk is moderate risk study (1 - 3% [place] or /year) .
(Roy Treadmill Score = +9, however, did not reach target HR; Lexiscan symptoms replicated that of [place].
Systolic function is low normal. The ejection fraction is 52%.
#Paroxysmal A-fib
-Hold Eliquis 5 mg twice daily last dose 02/20/2025 in AM
#Ischemic cardiomyopathy recovered
#Takotsubo cardiomyopathy(LVEF 15-20%�08/08/2024 recovered
- Continue Farxiga 10 mg daily
- Continue Entresto 1 tab p.o. twice daily
- HOLD spironolactone for heart cath
#Chronic neuropathy
-Continue gabapentin 300 mg twice daily
#Daily marijuana use
-Cessation advised
#HTN�benign
#HLD
-Continue Repatha 140 mg SQ every 2 weeks last dose 02/17/2025
-Continue Crestor 40 mg every afternoon
-Continue Zetia 10 mg every afternoon
-Check lipid profile
#Depression/anxiety
-Continue Cymbalta 40 mg daily, continue Ativan 1 mg p.o. at bedtime as needed
#Osteoporosis
- Takes Tylenol as needed
#Former smoker
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
DVT prophylaxis
-Cardiology to start IV heparin drip will transition to Eliquis post cath
Full code
--- NOTE | 2025-02-20 16:34 | W.PN.UPDATE ---
Update Note
Progress Note Update
This note serves as an addendum to the H&P by hardboard supervisor EVELINE Shaylee GARCIA
HPI
64F HX CAD/MT/CABG x 4 vessel repair 11/14/2023, recoved ICM with severe LV dysfunction( EF 15-20) on GDMT
Recent OP stress test on 02/03 showing LAD ischemiathus started on IMDUR 30mg daily withpending plan to take for LHC
Seen at ER today for Judith
- She woke up at 3 AM this morning with Judith into her neck mimicking her [place] last year 2023
- persistent mild neck tightness but is not having current chest pain.
- denies dyspnea on exertion.
PMHX :
paroxysmal A-fib
CAD/MT,/CABG x 4 vessel, ventricular septal defect repair CHF, ischemic cardiomyopathy Takotsubo 07/2024, HTN, HLD, osteoporosis, former smoker, marijuana use daily
Reviewed VS: AFVSS
PE
Gen: NAD
HEENT: anicteric
Neck: supple
Lungs: CTA
Cor: RRR S1 S2
Abdomen: soft
FUR CLEANER: AAO3 NFND
MS: no edema
Psych: Nl mood and affect
Abnormal Lab Results
02/20/25
10:49
RBC 3.95 L
MCH 32.4 H
Chloride 108 H
BUN 21 H
Glucose 100 H
Unremarkable labs
NEG TPNI
EKG
SINUS BRADYCARDIA
OTHERWISE NORMAL ECG
WHEN COMPARED WITH ECG OF 20-FEB-2025 10:39,
NO SIGNIFICANT CHANGE WAS FOUND
Confirmed by HONG MORAES MD ([id number]) on 02/20/2025 12:45:45 PM
2D echo 02/06/2025: EF 55-60%, normal LVS LVSF, no wall abnormalities, mild to moderate MR
02/03/25 Nuclear stress test
Negative ECG for ischemia.
Abnormal perfusion imaging with LAD territory ischemia.
The exercise tolerance is above average for given age and gender.
Stress Risk is moderate risk study (1 - 3% [place] or /year) .
(Roy Treadmill Score = +9, however, did not reach target HR; Lexiscan symptoms replicated that of [place].
Systolic function is low normal. The ejection fraction is 52%.
ASSESSMENT & PLAN
Acute Judith now in neck ; No dynamic ischemic EKG changes
Recent OP stress test on 02/03 showing LAD ischemiathus
HX CAD/MT/CABG x 4 vessel repair 11/14/2023HX
HX VSD ntricular septal defect repair
- Loading dose ASA 325 mg now and cont ASA 81 mg daily
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
- Holding Eliquis per [facility] TEST ENGINE OPERATOR
- Await Card input for Heparin gtt rin 325 mg now
- Patient given Ativan 0.5 mg in ER due to anxiety
- Patient given sublingual nitro 0.4 mg in ER
- [facility] card consulted
HX recovered ICM
HX received Takotsubo cardiomyopathy(LVEF 15-20%�08/08/2024 recovered
- c/w Farxiga 10 mg daily
- c/w Entresto 1 tab p.o. twice daily
- Hold spironolactone incase LHC
Daily marijuana use
Cessation advised
HTN�benign
HLD
- on Zetia, Rosuvastatin , Repatha
Osteoporosis
Former smoker
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
DVT Px: on Eliquis
Full code
IVU
[2025-02-20] MEDS: HEPARIN 3600 UNITS IV (17:10)
[2025-02-20] MEDS: HEPARIN 25000 UNITS/250 ML IV (17:11)
[2025-02-20 17:26] LABS: APTT 40.2 Sec (23.4-35.0)
[2025-02-20 19:04] LABS: Troponin I < 0.012 ng/ml
[2025-02-20] MEDS: ENTRESTO 24 MG/26 MG 1 TAB PO (21:21)
[2025-02-20] MEDS: NEURONTIN 300 MG PO (21:21)
[2025-02-20] MEDS: TYLENOL 650 MG PO (21:21)
[2025-02-20] MEDS: ZETIA 10 MG PO (21:22)
[2025-02-20] MEDS: CRESTOR 40 MG PO (21:22)
[2025-02-20 22:18] LABS: Glucose - Point of Care 83 mg/dl (70-99)
--- NOTE | 2025-02-20 22:56 | PTCARENOTE ---
pt admitted to room 2255 with neck pain. C/o neck pain/tightness 01/02. Heparin gtt per protocol. NPO after midnight. pt independent in the room. Oriented to the room. call maria in reach
[2025-02-21] VITALS (14 sets, daily range): BP systolic 107–154; BP diastolic 72–93; BMI 23.9
[2025-02-21 00:02] LABS: APTT 68.3 Sec (23.4-35.0)
[2025-02-21 06:55] LABS: % Basophils 0.7 % (0-2); % Eosinophils 3.4 % (0-6); % Immature Granulocytes 0.1 % (0-0.5); % Lymphocytes 40.3 % (20.5-51.1); % Monocytes 6.6 % (1.7-9.3); % Neutrophils 48.9 % (42.2-75.2); Absolute Basophils 0.1 10^3/uL (0-0.2); Absolute Eosinophils 0.2 10^3/uL (0-0.7); Absolute Lymphocytes 2.7 10^3/uL (1.2-3.4); Absolute Monocytes 0.4 10^3/uL (0.1-0.6); Absolute Neutrophils 3.3 10^3/uL (1.4-6.5); Hematocrit 38.5 % (37.0-47.0); Hemoglobin 13.1 g/dL (12.0-16.0); Mean Corpuscular Hgb 32.3 pg (27.0-31.0); Mean Corpuscular Volume 95.1 fL (81.0-99.0); Mean Platelet Volume 9.8 fL (7.4-10.4); Nucleated Red Blood Cells % 0 %; Platelet Count 292 10^3/uL (130-400); Red Blood Cell Count 4.05 10^6/uL (4.20-5.40); Red Cell Dist. Width 13.6 % (11.5-14.5); White Blood Cell Count 6.7 10^3/uL (4.8-10.8)
[2025-02-21 07:07] LABS: APTT 51.2 Sec (23.4-35.0)
[2025-02-21] MEDS: LOW STRENGTH ASPIRIN 81 MG PO (07:31)
[2025-02-21] MEDS: TYLENOL 650 MG PO ×3 (07:31→21:03)
[2025-02-21] MEDS: CYMBALTA DELAYED RELEASE 40 MG PO (07:31)
[2025-02-21] MEDS: NEURONTIN 300 MG PO ×2 (07:31→21:04)
[2025-02-21] MEDS: ENTRESTO 24 MG/26 MG 1 TAB PO ×2 (07:31→21:04)
[2025-02-21] MEDS: IMDUR (EXTENDED RELEASE) 30 MG PO (07:31)
[2025-02-21] MEDS: PLAVIX 75 MG PO (07:31)
[2025-02-21] MEDS: ATIVAN 1 MG PO ×3 (07:31→21:21)
[2025-02-21] MEDS: FARXIGA 10 MG PO (07:32)
[2025-02-21 07:48] LABS: ALT (SGPT) 19 U/L (0-35); AST (SGOT) 27 U/L (14-36); Albumin 4.4 g/dl (3.5-5.0); Alkaline Phosphatase 73 U/L (38-126); Blood Urea Nitrogen 13 mg/dl (7-17); Calcium 9.4 mg/dl (8.4-10.2); Carbon Dioxide 21 mmol/L (22-30); Chloride 109 mmol/L (98-107); Estimated Creatinine Clearance 76 ml/min; Glucose 90 mg/dl (70-99); HDL Cholesterol 62 mg/dl; LDL Cholesterol, Calculated 41 mg/dl; Magnesium 1.8 mg/dl (1.6-2.3); Potassium 4.3 mmol/L (3.5-5.1); Sodium 140 mmol/L (135-145); Total Bilirubin 0.5 mg/dl (0.2-1.3); Total Cholesterol 117 mg/dl (50-199); Total Protein 6.4 g/dl (6.3-8.2); Triglyceride 71 mg/dl (10-149); Very Low Density Lipoprotein 14 mg/dl (0-30); eGFR > 60.00
--- NOTE | 2025-02-21 08:16 | W.PN.HOSP.TC ---
Today's Communication/Plan
-
cardiac cath today
Assessment / Plan
Assessment / Plan
Impression:
64-year-old female with past medical history known for paroxysmal A-fib, CAD/[place],/CABG x 4 vessel,( NSTEMI s/p CABG x 4 (OLVERA-LAD, SVG-OM1, SVG-OM2, and SVG-distal RCA 10/2023)ventricular septal defect repair CHF, ischemic cardiomyopathy Takotsubo
07/2024, HTN, HLD, osteoporosis, former smoker, marijuana use daily
who had outpatient stress test on 02/03 showing LAD ischemia she was put on extended release Imdur 30 mg daily with plan to take for heart cath at some point in the future. She woke up at 3 AM day of admission with chest tightness into her neck
mimicking her [place] last year 2023 she still complaining of mild neck tightness but is not having current chest pain. She denies dyspnea on exertion.
Seen by cardiology and plan for cardiac cath.
Assessment/plan
#Chest pain with failed outpatient stress test defect LAD
#CAD/[place]/CABG x 4 vessel repair 11/14/2023 ( NSTEMI s/p CABG x 4 (OLVERA-LAD, SVG-OM1, SVG-OM2, and SVG-distal RCA 10/2023)
#Hx of ventricular septal defect repair
Troponin< 0.012 ,Second troponin < 0.012 will trend with EKG
- Consult cardiology
-Aspirin 324 mg now, continue aspirin 81 mg daily
-Continue Plavix 75 mg daily
-Hold Eliquis 5 mg twice daily last dose today 02/20/2025 in AM
-Cardiology to start IV heparin drip will transition to Eliquis post cath
- Patient given Ativan 0.5 mg in ER due to anxiety
- Patient given sublingual nitro 0.4 mg in ER
-Continue Imdur 30 mg daily
For cardiac cath today
Patient had 2D echo 02/06/2025: EF 55-60%, normal LVS LVSF, no wall abnormalities, mild to moderate MR
Repeat limited echo today:
Limited 2 D echocardiogram. No Doppler analysis.
Normal biventricular size and systolic function without regional wall motion
abnormality.
Thickened mitral valve leaflets.
Prolapse of the posterior mitral leaflet was present.
Aortic valve sclerosis.
Compared to previous echo dated 02/06/2025 the LV and RV systolic function are
still preserved. The prior study showed mild to moderate mitral regurgitation.
Nuclear stress test 02/03/2025:Negative ECG for ischemia.
Abnormal perfusion imaging with LAD territory ischemia.
The exercise tolerance is above average for given age and gender.
Stress Risk is moderate risk study (1 - 3% [place] or /year) .
(Roy Treadmill Score = +9, however, did not reach target HR; Lexiscan symptoms replicated that of [place].
Systolic function is low normal. The ejection fraction is 52%.
02/21
Plan for cardiac catheter today.
Continue heparin
#Paroxysmal A-fib
-Hold Eliquis 5 mg twice daily last dose 02/20/2025 in AM
#Ischemic cardiomyopathy recovered
#Takotsubo cardiomyopathy(LVEF 15-20%�08/08/2024 recovered
- Continue Farxiga 10 mg daily
- Continue Entresto 1 tab p.o. twice daily
- HOLD spironolactone for heart cath
#Chronic neuropathy
-Continue gabapentin 300 mg twice daily
#Daily marijuana use
-Cessation advised
#HTN�benign
#HLD
-Continue Repatha 140 mg SQ every 2 weeks last dose 02/17/2025
-Continue Crestor 40 mg every afternoon
-Continue Zetia 10 mg every afternoon
-Check lipid profile
#Depression/anxiety
-Continue Cymbalta 40 mg daily, continue Ativan as needed
#Osteoporosis
- Takes Tylenol as needed
#Former smoker
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
CODE STATUS: Full code
DVT prophylaxis: Heparin
Diet: N.p.o. for cardiac cath
Total time spent on today's encounter was 65 minutes which included time spent in counseling the patient/family regarding diagnosis and treatment plan as listed above, goals of care, and symptom management. Case was discussed with nursing staff,
specialists, and care coordinators/case management. All labs and imaging personally reviewed by me. Remainder the time spent in detailed review of previous records, lab data, imaging, and other medical provider documentation.
Anticipated Discharge: 24 - 48 hours
Subjective/Interval History
-
Date of Service: February 21, 2025
Patient seen and examined at bedside, patient has anxiety, received Ativan.
Denies any chest pain or shortness of breath, no abdominal pain, no nausea, no vomiting, no diarrhea or constipation.
Objective Data
-
Labs:
Laboratory Results
02/20/25 02/21/25 02/21/25
23:35 06:36 13:40
WBC 6.7
Hgb 13.1
Hct 38.5
Plt Count 292
APTT 68.3 H 51.2 H Pending
Sodium 140
Potassium 4.3
Chloride 109 H
Carbon Dioxide 21 L
BUN 13
Creatinine 0.6
Glucose 90
Calcium 9.4
Total Bilirubin 0.5
AST 27
ALT 19
Alkaline Phosphatase 73
Vital Signs:
Vital Signs
Temp Pulse Resp BP Pulse Ox
97.9 F 70 16 137/77 97
02/21/25 07:24 02/21/25 07:30 02/21/25 07:24 02/21/25 07:23 02/21/25 07:24
I&O
02/20/25 02/21/25 02/22/25
06:59 06:59 06:59
Intake Total 390 / 390
Balance 390 / 390
Physical Exam
-
General: Well Developed, Well Nourished, No Apparent Distress and Comfortable
HEENT: Normocephalic, Atraumatic, Moist Mucous Membranes, No Ptosis, PERRLA and Nose Appears Normal
Respiratory: Clear to Auscultation and Non Labored Respirations
Cardiac: Regular Rhythm and S1/S2
Breast: Deferred by me
GI: Soft, Nontender, Nondistended and Normal Bowel Sounds
Genito-urinary: No Costovertebral Tender
Musculoskeletal: No Clubbing, No Cyanosis and No Edema
Skin: Warm
Neuro: Awake, Alert, Oriented, AO x 3 and No Motor Deficits
Psych: Anxious
Data Reviewed
-
Diagnostic Radiology: Image personally visualized and interpreted and Report Reviewed by me
CT Scan: Image personally visualized and interpreted and Report Reviewed by me
Ultrasound: Image personally visualized and interpreted and Report Reviewed by me
MRI: Image personally visualized and interpreted and Report Reviewed by me
Medical Tests (Nuc Med, Echo etc): Image personally visualized and interpreted and Report Reviewed by me
Labs: Labs Reviewed by me
Old Records: Reviewed
--- NOTE | 2025-02-21 11:50 | CM ---
Reviewed chart. Met with Ms. Alva to review discharge plans. She states prior to admission she resides alone in a first floor apartment without any steps to enter. She states prior to admission she was independent with ambulation and adls.
She states she does not have any DME in the home. She states she has a prescription plan. Medical work-up in progress. The discharge plan is to return home when medically stable.
[2025-02-21 12:17] LABS: Glucose - Point of Care 83 mg/dl (70-99)
--- NOTE | 2025-02-21 14:54 | PTCARENOTE ---
Received pt from cathodic protection technician, monitor showing NSR, VSS. Left radial cath site with R band in place, no bleeding, no hematoma noted, +neuro check to fingers.
[2025-02-21] MEDS: TYLENOL PO (15:00)
[2025-02-21 15:44] LABS: Glucose - Point of Care 87 mg/dl (70-99)
--- NOTE | 2025-02-21 16:38 | ITS.CL.PN ---
Safety Investigator/Cause Analyst - Procedure Note
Procedure
Procedure Note:
CARDIAC CATHETERIZATION REPORT
Date of Procedure: 02/21/25
Referring: Dr. Nydia Gonzalez MD
Indication: Anginal chest pain, positive cardiac stress test
PROCEDURE(S)
1. left heart catheterization
2. coronary angiography
3. bypass graft angiography
ACCESS: 6F left radial artery (closure: radial band)
CATHETERS
1. 6F OSCAR
2. 6F JL4
3. 6F JR4
4. 6F OSCAR
MODERATE SEDATION: 45 minutes of moderate sedation was utilized. An independent medical transcriptionist was present to assist with and help manage the patient's level of consciousness and physiologic status.
HEMODYNAMIC DATA
LV 155/6 (EDP 21) mmHg
AO 158/76 (mean 107) mmHg
CORONARY ANGIOGRAPHY
Dominance: right
LM: Large with mild disease
LAD: Large vessel giving rise to two small diagonal branches. There is a focal 50% stenosis in the mid-vessel at the D2 takeoff and competitive flow distally from the OLVERA. D2 has severe diffuse disease.
LCx: Large vessel giving rise to a moderate caliber OM1 and moderate caliber OM2. There is diffuse moderate disease in the proximal LCx extending into the OM1 and severe diffuse disease in the mid-LCx beyond the OM1 takeoff. OM2 is supplied by the
patent SVG-OM2.
RCA: Totally occluded proximally. The moderate caliber RPDA and multiple small RPL branches are supplied via the patent SVG-RPDA.
BYPASS GRAFT ANGIOGRAPHY:
OLVERA-LAD: the OLVERA is taken as a pedicle and forms an anastomosis with the mid-LAD. There is a 50% stenosis at the touchdown of the OLVERA-LAD. There is brisk antegrade flow to the distal LAD which provides L-R collaterals to a large RV marginal.
There is some competitive flow in the distal LAD from the [place] inflow.
SVG-OM1: known to be occluded and not selectively engaged
SVG-OM2: patent without significant disease
SVG-RPDA: patent with a smooth long 50% stenosis proximally
RADIATION: dose 664.00 mGy; DAP 39.0038 Gy*cm2; fluoroscopy time 19.6 min
CONCLUSIONS
1. Multivessel CAD s/p CABG as described with overall stable disease compared to 07/2024 angiography with no lesion to explain the patient's sudden onset chest pain at rest.
2. Mildly elevated LV filling pressure and no aortic stenosis.
RECOMMENDATIONS
1. Aggressive secondary prevention of coronary artery disease.
2. The patient's presentation is most consistent with non-cardiac chest pain. Should she go on to develop more typical anginal symptoms in the future, the OLVERA-LAD touchdown and proximal SVG-RPDA are reasonable targets for percutaneous
revascularization.
Copy to: Dr. Nydia Gonzalez MD (director dietetics department); Dr. Ivette Mandujano MD (PCP)
Signed: Toby Nam MD, PhD
[2025-02-21] MEDS: CRESTOR 40 MG PO (17:41)
[2025-02-21] MEDS: ZETIA 10 MG PO (17:41)
--- NOTE | 2025-02-21 20:43 | PTCARENOTE ---
Received pt @ change of shift. Pt resting in bed, awoke to verbal stimulus-- oriented x3. VSS. Pt requested care be clustered as much as possible as she did not sleep much the night before. Heparin gtt has been discontinued. Right radial site clean,
dry, and intact. No ecchymosis, soft to touch, no firmness. Pt denies chest pain @ this time. Discussed plan of care for evening. Pt verbalizes understanding. Call maria within reach.
[2025-02-21] MEDS: ELIQUIS 5 MG PO (21:03)
[2025-02-22 04:38] VITALS: BP 145/96
[2025-02-22 04:52] VITALS: BMI 23.7
[2025-02-22 05:30] LABS: % Basophils 0.7 % (0-2); % Eosinophils 2.1 % (0-6); % Immature Granulocytes 0.2 % (0-0.5); % Lymphocytes 25.5 % (20.5-51.1); % Monocytes 7.5 % (1.7-9.3); Absolute Basophils 0.1 10^3/uL (0-0.2); Absolute Eosinophils 0.2 10^3/uL (0-0.7); Absolute Lymphocytes 2.3 10^3/uL (1.2-3.4); Absolute Monocytes 0.7 10^3/uL (0.1-0.6); Absolute Neutrophils 5.8 10^3/uL (1.4-6.5); Hematocrit 40.8 % (37.0-47.0); Hemoglobin 13.9 g/dL (12.0-16.0); Mean Corp Hgb Conc. 34.1 g/dL (33.0-37.0); Mean Corpuscular Hgb 32.6 pg (27.0-31.0); Mean Corpuscular Volume 95.8 fL (81.0-99.0); Mean Platelet Volume 9.7 fL (7.4-10.4); Nucleated Red Blood Cells % 0 %; Platelet Count 307 10^3/uL (130-400); Red Blood Cell Count 4.26 10^6/uL (4.20-5.40); Red Cell Dist. Width 13.3 % (11.5-14.5); White Blood Cell Count 9.1 10^3/uL (4.8-10.8)
[2025-02-22 05:49] LABS: ALT (SGPT) 19 U/L (0-35); AST (SGOT) 26 U/L (14-36); Albumin 4.6 g/dl (3.5-5.0); Alkaline Phosphatase 82 U/L (38-126); Blood Urea Nitrogen 13 mg/dl (7-17); Calcium 9.7 mg/dl (8.4-10.2); Carbon Dioxide 18 mmol/L (22-30); Chloride 108 mmol/L (98-107); Estimated Creatinine Clearance 76 ml/min; Glucose 78 mg/dl (70-99); Potassium 4.4 mmol/L (3.5-5.1); Sodium 139 mmol/L (135-145); Total Bilirubin 0.6 mg/dl (0.2-1.3); Total Protein 6.9 g/dl (6.3-8.2); eGFR > 60.00
[2025-02-22 07:13] VITALS: BP 152/95
[2025-02-22 08:21] VITALS: BP 148/89
[2025-02-22] MEDS: CYMBALTA DELAYED RELEASE 40 MG PO (08:21)
[2025-02-22] MEDS: NEURONTIN 300 MG PO (08:21)
[2025-02-22] MEDS: ENTRESTO 24 MG/26 MG 1 TAB PO (08:21)
[2025-02-22] MEDS: PLAVIX 75 MG PO (08:21)
[2025-02-22] MEDS: FARXIGA 10 MG PO (08:21)
[2025-02-22] MEDS: TYLENOL 650 MG PO (08:22)
[2025-02-22] MEDS: ELIQUIS 5 MG PO (08:22)
[2025-02-22] MEDS: IMDUR (EXTENDED RELEASE) 30 MG PO ×2 (08:22→10:13)
--- NOTE | 2025-02-22 08:51 | W.PN.HOSP.TC ---
Today's Communication/Plan
-
Discharge home today
Assessment / Plan
Assessment / Plan
Impression:
64-year-old female with past medical history known for paroxysmal A-fib, CAD/[place],/CABG x 4 vessel,( NSTEMI s/p CABG x 4 (OLVERA-LAD, SVG-OM1, SVG-OM2, and SVG-distal RCA 10/2023)ventricular septal defect repair CHF, ischemic cardiomyopathy Takotsubo
07/2024, HTN, HLD, osteoporosis, former smoker, marijuana use daily
who had outpatient stress test on 02/03 showing LAD ischemia she was put on extended release Imdur 30 mg daily with plan to take for heart cath at some point in the future. She woke up at 3 AM day of admission with chest tightness into her neck
mimicking her [place] last year 2023 she still complaining of mild neck tightness but is not having current chest pain. She denies dyspnea on exertion.
Seen by cardiology and plan for cardiac cath.
02/22
Status post cardiac cath showed:
CONCLUSIONS
1. Multivessel CAD s/p CABG as described with overall stable disease compared to 07/2024 angiography with no lesion to explain the patient's sudden onset chest pain at rest.
2. Mildly elevated LV filling pressure and no aortic stenosis.
RECOMMENDATIONS
1. Aggressive secondary prevention of coronary artery disease.
2. The patient's presentation is most consistent with non-cardiac chest pain. Should she go on to develop more typical anginal symptoms in the future, the OLVERA-LAD touchdown and proximal SVG-RPDA are reasonable targets for percutaneous
revascularization.
02/22
Seen by cardiology today who recommended this to increase Imdur to 60 mg and can be discharged home
Assessment/plan
#Chest pain with failed outpatient stress test defect LAD
#CAD/[place]/CABG x 4 vessel repair 11/14/2023 ( NSTEMI s/p CABG x 4 (OLVERA-LAD, SVG-OM1, SVG-OM2, and SVG-distal RCA 10/2023)
#Hx of ventricular septal defect repair
Troponin< 0.012 ,Second troponin < 0.012 will trend with EKG
- Consult cardiology
-Aspirin 324 mg now, continue aspirin 81 mg daily
-Continue Plavix 75 mg daily
-Hold Eliquis 5 mg twice daily last dose today 02/20/2025 in AM
-Cardiology to start IV heparin drip will transition to Eliquis post cath
- Patient given Ativan 0.5 mg in ER due to anxiety
- Patient given sublingual nitro 0.4 mg in ER
-Continue Imdur 30 mg daily
For cardiac cath today
Patient had 2D echo 02/06/2025: EF 55-60%, normal LVS LVSF, no wall abnormalities, mild to moderate MR
Repeat limited echo today:
Limited 2 D echocardiogram. No Doppler analysis.
Normal biventricular size and systolic function without regional wall motion
abnormality.
Thickened mitral valve leaflets.
Prolapse of the posterior mitral leaflet was present.
Aortic valve sclerosis.
Compared to previous echo dated 02/06/2025 the LV and RV systolic function are
still preserved. The prior study showed mild to moderate mitral regurgitation.
Nuclear stress test 02/03/2025:Negative ECG for ischemia.
Abnormal perfusion imaging with LAD territory ischemia.
The exercise tolerance is above average for given age and gender.
Stress Risk is moderate risk study (1 - 3% [place] or /year) .
(Roy Treadmill Score = +9, however, did not reach target HR; Lexiscan symptoms replicated that of [place].
Systolic function is low normal. The ejection fraction is 52%.
02/21
Plan for cardiac catheter today.
Continue heparin
02/22
Cardiac cath shows:
CONCLUSIONS
1. Multivessel CAD s/p CABG as described with overall stable disease compared to 07/2024 angiography with no lesion to explain the patient's sudden onset chest pain at rest.
2. Mildly elevated LV filling pressure and no aortic stenosis.
RECOMMENDATIONS
1. Aggressive secondary prevention of coronary artery disease.
2. The patient's presentation is most consistent with non-cardiac chest pain. Should she go on to develop more typical anginal symptoms in the future, the OLVERA-LAD touchdown and proximal SVG-RPDA are reasonable targets for percutaneous
revascularization.
Will be discharged home today
#Paroxysmal A-fib
Resumed eliquis
#Ischemic cardiomyopathy recovered
#Takotsubo cardiomyopathy(LVEF 15-20%�08/08/2024 recovered
- Continue Farxiga 10 mg daily
- Continue Entresto 1 tab p.o. twice daily
- HOLD spironolactone for heart cath
#Chronic neuropathy
-Continue gabapentin 300 mg twice daily
#Daily marijuana use
-Cessation advised
#HTN�benign
#HLD
-Continue Repatha 140 mg SQ every 2 weeks last dose 02/17/2025
-Continue Crestor 40 mg every afternoon
-Continue Zetia 10 mg every afternoon
-Check lipid profile
#Depression/anxiety
-Continue Cymbalta 40 mg daily, continue Ativan as needed
#Osteoporosis
- Takes Tylenol as needed
#Former smoker
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
CODE STATUS: Full code
DVT prophylaxis: Heparin
Diet: cardiac
Total time spent on today's encounter was 65 minutes which included time spent in counseling the patient/family regarding diagnosis and treatment plan as listed above, goals of care, and symptom management. Case was discussed with nursing staff,
specialists, and care coordinators/case management. All labs and imaging personally reviewed by me. Remainder the time spent in detailed review of previous records, lab data, imaging, and other medical provider documentation.
Anticipated Discharge: Today
Subjective/Interval History
-
Date of Service: February 22, 2025
Patient seen and examined at bedside, denies any chest pain or shortness of breath, no abdominal pain, no nausea, no vomiting, no diarrhea or constipation.
Objective Data
-
Labs:
Laboratory Results
02/22/25
04:45
WBC 9.1
Hgb 13.9
Hct 40.8
Plt Count 307
Sodium 139
Potassium 4.4
Chloride 108 H
Carbon Dioxide 18 L
BUN 13
Creatinine 0.6
Glucose 78
Calcium 9.7
Total Bilirubin 0.6
AST 26
ALT 19
Alkaline Phosphatase 82
Vital Signs:
Vital Signs
Temp Pulse Resp BP Pulse Ox
98.1 F 79 16 148/89 98
02/22/25 07:13 02/22/25 08:21 02/22/25 07:13 02/22/25 08:21 02/22/25 07:13
I&O
02/21/25 02/22/25 02/23/25
06:59 06:59 06:59
Intake Total 390 / 390 480 / 480
Balance 390 / 390 480 / 480
Physical Exam
-
General: Well Developed, Well Nourished, No Apparent Distress and Comfortable
HEENT: Normocephalic, Atraumatic, Moist Mucous Membranes, No Ptosis, PERRLA and Nose Appears Normal
Respiratory: Clear to Auscultation and Non Labored Respirations
Cardiac: Regular Rhythm and S1/S2
Breast: Deferred by me
GI: Soft, Nontender, Nondistended and Normal Bowel Sounds
Genito-urinary: No Costovertebral Tender
Musculoskeletal: No Clubbing, No Cyanosis and No Edema
Skin: Warm
Neuro: Awake, Alert, Oriented, AO x 3 and No Motor Deficits
Psych: Calm
Data Reviewed
-
Diagnostic Radiology: Image personally visualized and interpreted and Report Reviewed by me
CT Scan: Image personally visualized and interpreted and Report Reviewed by me
Ultrasound: Image personally visualized and interpreted and Report Reviewed by me
MRI: Image personally visualized and interpreted and Report Reviewed by me
Medical Tests (Nuc Med, Echo etc): Image personally visualized and interpreted and Report Reviewed by me
Labs: Labs Reviewed by me
Old Records: Reviewed
--- NOTE | 2025-02-22 09:32 | W.PN.CD ---
Today's Communication / Plan
-
increase IMDUR to 60mg a day
ok to discharge home
Impression / Plan
-
Throat and jaw pain:
-no finding on cath to explain, may be non cardiac. Additionally could consider microvascular disease with HTN?
-will increase imdur to 60mg daily
-encouraged to follow up with PCP too
CAD with hx CABG:
-no new culprit for rest symptoms
-the collateral flow from the L-R collaterals to rv marginal is likely the mismatch explaining the ischemic seen on recent stress test.
-continue medical therapy
-explained the appropriate use of NTG
PAF:
-stable in SR
-on Eliquis
Previous ICM, and later Takotsubo, now with recovered EF:
-on Entresto, Spironolactone, and Farxiga-per OP chart this is max tolerated GDMT
-recent echo with normal EF as described
Subjective:
she is feeling so much better
Data:
CATH 02/22/25:
HEMODYNAMIC DATA
LV 155/6 (EDP 21) mmHg
AO 158/76 (mean 107) mmHg
CORONARY ANGIOGRAPHY
Dominance: right
LM: Large with mild disease
LAD: Large vessel giving rise to two small diagonal branches. There is a focal 50% stenosis in the mid-vessel at the D2 takeoff and competitive flow distally from the OLVERA. D2 has severe diffuse disease.
LCx: Large vessel giving rise to a moderate caliber OM1 and moderate caliber OM2. There is diffuse moderate disease in the proximal LCx extending into the OM1 and severe diffuse disease in the mid-LCx beyond the OM1 takeoff. OM2 is supplied by the
patent SVG-OM2.
RCA: Totally occluded proximally. The moderate caliber RPDA and multiple small RPL branches are supplied via the patent SVG-RPDA.
BYPASS GRAFT ANGIOGRAPHY:
OLVERA-LAD: the OLVERA is taken as a pedicle and forms an anastomosis with the mid-LAD. There is a 50% stenosis at the touchdown of the OLVERA-LAD. There is brisk antegrade flow to the distal LAD which provides L-R collaterals to a large RV marginal.
There is some competitive flow in the distal LAD from the [place] inflow.
SVG-OM1: known to be occluded and not selectively engaged
SVG-OM2: patent without significant disease
SVG-RPDA: patent with a smooth long 50% stenosis proximally
CONCLUSIONS
1. Multivessel CAD s/p CABG as described with overall stable disease compared to 07/2024 angiography with no lesion to explain the patient's sudden onset chest pain at rest.
2. Mildly elevated LV filling pressure and no aortic stenosis.
RECOMMENDATIONS
1. Aggressive secondary prevention of coronary artery disease.
2. The patient's presentation is most consistent with non-cardiac chest pain. Should she go on to develop more typical anginal symptoms in the future, the OLVERA-LAD touchdown and proximal SVG-RPDA are reasonable targets for percutaneous
revascularization.
Physical Exam
Vital Signs/Labs
Vital Signs
Temp Pulse Resp BP Pulse Ox
98.1 F 79 16 148/89 98
02/22/25 07:13 02/22/25 08:21 02/22/25 07:13 02/22/25 08:21 02/22/25 07:13
02/21/25 02/22/25 02/23/25
06:59 06:59 06:59
Actual Weight 130 lb 4.691 oz 129 lb 10.109 oz
02/22/25 04:45
02/22/25 04:45
APTT Cancelled 02/21/25 13:40
Magnesium 1.8 mg/dl (1.6-2.3) 02/21/25 06:36
Triglycerides 71 mg/dl (10-149) 02/21/25 06:36
LDL Cholesterol, Calc 41 mg/dl 02/21/25 06:36
VLDL Cholesterol, Calc 14 mg/dl (0-30) 02/21/25 06:36
HDL Cholesterol 62 mg/dl 02/21/25 06:36
LAB Results
02/20/25 02/20/25 02/20/25
10:49 13:55 18:31
Troponin I < 0.012 < 0.012 < 0.012
Physical Exam
Constitutional: No acute distress
Cardiovascular: Rhythm & rate is regular, Pedal edema is absent, JVD pressure is normal, Systolic murmur absent and Diastolic murmur absent
Respiratory: Respiratory effort normal, Lungs clear to auscul., Wheeze Absent, Crackles Absent and Rhonchi Absent
Neuro/Psych: AO x 3
Data Reviewed
-
Date of Service: February 22, 2025
EKG: Tracing Personally Visualized and interpreted (sinus)
--- NOTE | 2025-02-22 10:09 | CM ---
Reviewed chart. Met with Ms. Alva to review discharge plans. She state she is feeling better and maybe able to go home soon. She wanted to know if Shaun Pedroza at [facility] can accept her insurance for outpatient cardiac rehab. Currently
[facility] does not take her insurance. Telephone call to [facility]. to see if they take her insurance. Left message. Updated Ms. Alva. Prior to admission she resides alone in a first floor apartment
without any steps to enter. Prior to admission she was independent with ambulation and adls. She does not have any DME in the home. She has a prescription plan. Medical work-up in progress. The discharge plan is to return home when medically
stable.
--- NOTE | 2025-02-22 10:12 | W.DCSUMMARY ---
Discharge Summary
Discharge Data
Date of Admission: 02/20/25
Date of Discharge: 02/22/25
-
Pending Results: No
Hospital Course
Hospital course
64-year-old female with past medical history known for paroxysmal A-fib, CAD/TX,/CABG x 4 vessel,( NSTEMI s/p CABG x 4 (OLVERA-LAD, SVG-OM1, SVG-OM2, and SVG-distal RCA 10/2023)ventricular septal defect repair CHF, ischemic cardiomyopathy Takotsubo
07/2024, HTN, HLD, osteoporosis, former smoker, marijuana use daily
who had outpatient stress test on 02/03 showing LAD ischemia she was put on extended release Imdur 30 mg daily with plan to take for heart cath at some point in the future. She woke up at 3 AM day of admission with chest tightness into her neck
mimicking her [place] last year 2023 she still complaining of mild neck tightness but is not having current chest pain. She denies dyspnea on exertion.
Seen by cardiology and plan for cardiac cath.
02/22
Status post cardiac cath showed:
CONCLUSIONS
1. Multivessel CAD s/p CABG as described with overall stable disease compared to 07/2024 angiography with no lesion to explain the patient's sudden onset chest pain at rest.
2. Mildly elevated LV filling pressure and no aortic stenosis.
RECOMMENDATIONS
1. Aggressive secondary prevention of coronary artery disease.
2. The patient's presentation is most consistent with non-cardiac chest pain. Should she go on to develop more typical anginal symptoms in the future, the OLVERA-LAD touchdown and proximal SVG-RPDA are reasonable targets for percutaneous
revascularization.
02/22
Seen by cardiology today who recommended this to increase Imdur to 60 mg and can be discharged home
During hospitalization patient was treated from the following
#Chest pain with failed outpatient stress test defect LAD
#CAD/TX/CABG x 4 vessel repair 11/14/2023 ( NSTEMI s/p CABG x 4 (OLVERA-LAD, SVG-OM1, SVG-OM2, and SVG-distal RCA 10/2023)
#Hx of ventricular septal defect repair
Troponin< 0.012 ,Second troponin < 0.012 will trend with EKG
- Consult cardiology
-Aspirin 324 mg now, continue aspirin 81 mg daily
-Continue Plavix 75 mg daily
-Hold Eliquis 5 mg twice daily last dose today 02/20/2025 in AM
-Cardiology to start IV heparin drip will transition to Eliquis post cath
- Patient given Ativan 0.5 mg in ER due to anxiety
- Patient given sublingual nitro 0.4 mg in ER
-Continue Imdur 30 mg daily
For cardiac cath today
Patient had 2D echo 02/06/2025: EF 55-60%, normal LVS LVSF, no wall abnormalities, mild to moderate MR
Repeat limited echo today:
Limited 2 D echocardiogram. No Doppler analysis.
Normal biventricular size and systolic function without regional wall motion
abnormality.
Thickened mitral valve leaflets.
Prolapse of the posterior mitral leaflet was present.
Aortic valve sclerosis.
Compared to previous echo dated 02/06/2025 the LV and RV systolic function are
still preserved. The prior study showed mild to moderate mitral regurgitation.
Nuclear stress test 02/03/2025:Negative ECG for ischemia.
Abnormal perfusion imaging with LAD territory ischemia.
The exercise tolerance is above average for given age and gender.
Stress Risk is moderate risk study (1 - 3% TX or /year) .
(Roy Treadmill Score = +9, however, did not reach target HR; Lexiscan symptoms replicated that of TX.
Systolic function is low normal. The ejection fraction is 52%.
02/21
Plan for cardiac catheter today.
Continue heparin
02/22
Cardiac cath shows:
CONCLUSIONS
1. Multivessel CAD s/p CABG as described with overall stable disease compared to 07/2024 angiography with no lesion to explain the patient's sudden onset chest pain at rest.
2. Mildly elevated LV filling pressure and no aortic stenosis.
RECOMMENDATIONS
1. Aggressive secondary prevention of coronary artery disease.
2. The patient's presentation is most consistent with non-cardiac chest pain. Should she go on to develop more typical anginal symptoms in the future, the OLVERA-LAD touchdown and proximal SVG-RPDA are reasonable targets for percutaneous
revascularization.
Will be discharged home today
#Paroxysmal A-fib
Resumed eliquis
#Ischemic cardiomyopathy recovered
#Takotsubo cardiomyopathy(LVEF 15-20%�08/08/2024 recovered
- Continue Farxiga 10 mg daily
- Continue Entresto 1 tab p.o. twice daily
- HOLD spironolactone for heart cath
#Chronic neuropathy
-Continue gabapentin 300 mg twice daily
#Daily marijuana use
-Cessation advised
#HTN�benign
#HLD
-Continue Repatha 140 mg SQ every 2 weeks last dose 02/17/2025
-Continue Crestor 40 mg every afternoon
-Continue Zetia 10 mg every afternoon
-Check lipid profile
#Depression/anxiety
-Continue Cymbalta 40 mg daily, continue Ativan as needed
#Osteoporosis
- Takes Tylenol as needed
#Former smoker
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
CODE STATUS: Full code
DVT prophylaxis: Heparin
Diet: cardiac
Total time spent on today's encounter was 40 minutes which included time spent in counseling the patient/family regarding diagnosis and treatment plan as listed above, goals of care, and symptom management. Case was discussed with nursing staff,
specialists, and care coordinators/case management. All labs and imaging personally reviewed by me. Remainder the time spent in detailed review of previous records, lab data, imaging, and other medical provider documentation.
Anticipated Discharge: Today
Discharge Plan
-
Patient Disposition: Home (Routine Discharge)
Discharge Diagnosis/Procedures: cardiac catheterization
Chest pain.
Paroxysmal A-fib.
Ischemic cardiomyopathy.
Chronic neuropathy
Diet: Low Cholesterol and Low Sodium
Activity: With assistance and As tolerated
Stand Alone Forms: DC Instructions- Cath/EP Lab
Referrals:
Ivette Mandujano MD [Family Provider] -
Juliet Gonzalez MD [Active] - 03/28/25 8:40 am (Cardiology followup appointment)
Prescriptions:
New
isosorbide mononitrate 60 mg Tablet Extended Release 24 Hr
60 mg PO DAILY Qty: 30 0RF
nitroglycerin 0.4 mg Tablet, Sublingual
0.4 mg sublingual [id number] PRN (Reason: cp) Qty: 100 0RF
Continued
gabapentin 300 mg Capsule
300 mg PO BID
clopidogrel 75 mg Tablet
75 mg PO DAILY Qty: 30 1RF
Eliquis 5 mg Tablet
5 mg PO BID
lorazepam 1 mg Tablet
1 mg PO HSPRN PRN (Reason: anxiety/sleep)
ezetimibe [Zetia] 10 mg Tablet
10 mg PO QPM
rosuvastatin 40 mg Tablet
40 mg PO QPM
Repatha SureClick 140 mg/mL Pen Injector
140 mg SC Q2W
dapagliflozin propanediol [Farxiga] 10 mg tablet
10 mg PO DAILY
therapeutic multivitamin Tablet
1 tab PO DAILY
spironolactone 25 mg tablet
25 mg PO DAILY
Entresto 24-26 mg tablet
1 tab PO BID
acetaminophen [Tylenol] 325 mg Tablet
650 mg PO QID
duloxetine [Cymbalta] 20 mg Capsule,Delayed Release(Dr/Ec)
40 mg PO DAILY
Discontinued
isosorbide mononitrate 30 mg Tablet Extended Release 24 Hr
30 mg PO DAILY
Discharge Orders:
Discharge Patient (As Directed); Ordered 02/22/25
Ordered By: Fanny Arita
Care Plan Goals
Care Plan Goals:
Problem: Readiness for enhanced knowledge related to diagnosis and treatment plan
Goal: Understand your diagnosis and treatment plan needs, including medications if applicable.
Instructions: Know your diagnosis, underlying causes and treatment plan options, including medications if applicable. Consult with your health care team to learn about your diagnosis and treatment plan, including medications if applicable.
Discharge Date and Time
Print Language: CITIZEN OF [place]
[2025-02-22 10:13] VITALS: BP 137/96
[2025-02-22] MEDS: PREVNAR 20 0.5 ML IM (11:04)
[2025-02-22 11:29] VITALS: BP 129/91
== END 2025-02-22 11:53 | disposition home or self-care (01) | DRG 287 ==
LOC: IVU 17:08
PROVIDERS: Clinical Nurse Specialist Family Health; Emergency Medicine; Nurse Practitioner; Physician Assistant; Student in an Organized Health Care Education/Training Program; ADMITTING PHYSICIAN Internal Medicine; ATTENDING PHYSICIAN General Practice; CONSULT PHYSICIAN Internal Medicine Cardiovascular Disease; EMERGENCY PHYSICIAN Emergency Medicine; FAMILY PHYSICIAN Family Medicine
PROC: 4A023N7 Measurement of Cardiac Sampling and Pressure, Left Heart, Percutaneous Approach (ICD-10-PCS; 2025-02-21)
PROC: B2111ZZ Fluoroscopy of Multiple Coronary Arteries using Low Osmolar Contrast (ICD-10-PCS; 2025-02-21)
PROC: B2131ZZ Fluoroscopy of Multiple Coronary Artery Bypass Grafts using Low Osmolar Contrast (ICD-10-PCS; 2025-02-21)
PROC: 3E0234Z Introduction of Serum, Toxoid and Vaccine into Muscle, Percutaneous Approach (ICD-10-PCS; 2025-02-22)
DX: I25.119 Atherosclerotic heart disease of native coronary artery with unspecified angina pectoris (principal); I51.81 Takotsubo syndrome; I48.0 Paroxysmal atrial fibrillation; I25.2 Old myocardial infarction; Z87.74 Personal history of (corrected) congenital malformations of heart and circulatory system; F41.9 Anxiety disorder, unspecified; F32.A Depression, unspecified; I35.8 Other nonrheumatic aortic valve disorders; I25.5 Ischemic cardiomyopathy; G62.9 Polyneuropathy, unspecified; F12.90 Cannabis use, unspecified, uncomplicated; E78.00 Pure hypercholesterolemia, unspecified; Z87.891 Personal history of nicotine dependence; M81.0 Age-related osteoporosis without current pathological fracture; F10.21 Alcohol dependence, in remission; I50.9 Heart failure, unspecified; I11.0 Hypertensive heart disease with heart failure; F90.9 Attention-deficit hyperactivity disorder, unspecified type; Z96.612 Presence of left artificial shoulder joint; Z82.49 Family history of ischemic heart disease and other diseases of the circulatory system; Z81.8 Family history of other mental and behavioral disorders; Z88.0 Allergy status to penicillin; Z79.01 Long term (current) use of anticoagulants; Z79.02 Long term (current) use of antithrombotics/antiplatelets; Z79.899 Other long term (current) drug therapy; Z95.1 Presence of aortocoronary bypass graft; Z23 Encounter for immunization
CPT/HCPCS: 93308; 80053; 80061; 82962; 83735; 84484; 85025; 85730; 90677; 93005; 93459; 99152; 99153; 99285; 99406; C1894; G0009; Q9967

== ENCOUNTER → 2025-08-01 07:04 | Outpatient (REF) | payer OTHER, SELFPAY | LOC: HWRCS 07:04 | PROVIDERS: ATTENDING PHYSICIAN Nurse Practitioner Gerontology | DX: R07.9 Chest pain, unspecified (principal); I51.81 Takotsubo syndrome | CPT/HCPCS: 93306 ==